=== PATIENT | female | born 1950 | race Caucasian/White ===

== ENCOUNTER 2018-06-01 01:01 | Outpatient (CLI) | payer OTHER, SELFPAY ==
--- NOTE | 2018-06-01 05:43 | DI.RAD_ITS ---
SYMPTOMS/DIAGNOSIS: CERVICALGIA, M54.2 CERVICAL SPINE: There is moderate narrowing of the C5-6 disc space and moderate endplate osteophytes. The remaining disc spaces are well maintained. There are facet degenerative changes at the lower levels. There is bilateral neural foraminal narrowing at C5-6 and mild neural foraminal narrowing at C6-7, greater on the left. IMPRESSION: Degenerative changes causing bilateral neural foraminal narrowing at C5-6 and C6-7.
--- NOTE | 2018-06-01 07:02 | DI.US_ITS ---
SYMPTOMS/DIAGNOSIS: CERVICALGIA, ANTERIOR NECK PAIN, M54.2 CAROTID ULTRASOUND: Comparison is made with September,. Mild calcific plaque is seen in both common carotid bulbs extending into the proximal internal carotid arteries, increasing when compared with the previous exam. There is no significant stenosis, greater than 50%. The external carotid arteries show elevated systolic velocity, left greater than right. The left vertebral artery shows flow reversal. IMPRESSION: No significant internal carotid artery stenosis. Bilateral external carotid artery stenosis is demonstrated. Flow reversal is now seen in the left vertebral artery.
== END 2018-06-01 01:21 ==
PROVIDERS: PCP Family Medicine; Visit Provider Family Medicine
DX: M54.2 Cervicalgia (principal); M48.02 Spinal stenosis, cervical region; I65.23 Occlusion and stenosis of bilateral carotid arteries; M47.022 Vertebral artery compression syndromes, cervical region
CPT/HCPCS: 72050; 93880

== ENCOUNTER 2019-01-03 07:10 | Outpatient (CLI) | payer OTHER, SELFPAY ==
[2019-01-03 08:53] LABS: ALT 49 U/L (12-78); AST 12 U/L (15-37); Albumin 3.8 g/dL (3.4-5.0); Alkaline Phosphatase 82 U/L (46-116); Anion Gap 9.7 mmol/L (3-11); BUN 17 mg/dL (7-18); Bilirubin, Total 0.5 mg/dL (0.2-1.0); CO2 27.3 mmol/L (21.0-32.0); CREATININE 0.73 mg/dL (0.55-1.02); Calcium 9.2 mg/dL (8.5-10.1); Calculated LDL 83 mg/dL; Chloride 106 mmol/L (98-107); Cholesterol 163 mg/dL (50-200); Glucose 100 mg/dL (70-100); HDL Cholesterol 70 mg/dL (40-60); Potassium 4.6 mmol/L (3.5-5.1); Sodium 143 mmol/L (136-145); Total Protein 6.8 g/dL (6.4-8.2); Triglyceride 53 mg/dL (30-150)
== END 2019-01-03 07:30 ==
PROVIDERS: PCP Family Medicine; Visit Provider Family Medicine
DX: E78.5 Hyperlipidemia, unspecified (principal); I10 Essential (primary) hypertension
CPT/HCPCS: 36415; 80053; 80061; 83721

== ENCOUNTER 2019-01-07 15:00 | Emergency (ER) | payer OTHER, SELFPAY ==
[2019-01-07 15:09] VITALS: BP 171/59; PULSE 95; RESP 18; TEMP 37.2; O2SAT 94
--- NOTE | 2019-01-07 15:22 | W.ED.GENAD ---
Discharge Plan Disposition Patient Disposition: HOME Condition: Stable Discharge Details Chief Complaint: GenMedical Clinical Impression: Cough Primary Care Provider: Eliana Urias ED Provider: Dary Jose Home Meds and New Rx's Prescriptions: New doxycycline hyclate 100 mg tablet 100 mg PO BID 7 Days Qty: 14 RF: 0 benzonatate [Tessalon Perles] 100 mg capsule 100 mg PO BID PRN (Reason: cough) Qty: 14 RF: 0 Continued lisinopril 20 mg tablet 20 mg PO DAILY Qty: 90 RF: 4 ascorbic acid (vitamin C) [Vitamin C] 500 MG tablet 500 mg PO DAILY RF: 0 aspirin [Aspir-81] 81 MG tablet,delayed release (DR/EC) 81 mg PO DAILY Qty: 30 RF: 6 atorvastatin 40 mg tablet 40 mg PO DAILY Qty: 90 RF: 4 Shingrix Adjuvant Component-PF suspension 1 ml IM ONCE Qty: 0.5 RF: 1 Discharge Instructions Instructions: Acute Cough (ED) Additional Instructions: Drink plenty of fluids and get plenty of rest. Use the albuterol inhaler as needed and directed for any shortness of breath or wheezing. Use [id number] Mucinex to help with chest congestion and mucus. Take the Tessalon Perles as needed and directed for cough. If you have no relief in symptoms over the next 2 days, you may start the antibiotics. Follow-up with your primary care doctor in 1 week for reevaluation. Return immediately to the emergency department if you develop any worsening or new concerning symptoms. Discharge Data Discharge Date/Time-TO BE ENTERED AT DEPARTURE: 01/07/19 16:11 Discharge Physician: Dary Jose Medical Decision Making 68-year-old female with a history of exercise-induced asthma, hypertension, hyperlipidemia who presents with productive cough for the past week. Admits to occasional shortness of breath but denies any at present. Denies any fever or chest pain. Afebrile. Oxygen saturation 94% on room air. Denies any recent travel, recent surgery, leg pain or swelling. Patient offered chest x-ray but declines. Lungs clear to auscultation. She appears nontoxic. Speaking in full sentences. Differential diagnosis includes bronchitis, viral URI, pneumonia. Admits to mainly c/o cough and denies any complaint of chest pain or shortness of breath at this time and history/presentation not c/w ACS. No DVT/PE risk factors and history/presentation not c/w PE. Do not see an indication for steroids. A chest xray was ordered but pt declined this. We will send with a prescription for albuterol inhaler, Tessalon Perles. She is instructed to take Mucinex [id number]. She states she is traveling to [place] for the week and mainly concerned about worsening cough and needing antibiotics. She is instructed to drink plenty of fluids and get plenty of rest. If she has no relief or worsening of symptoms in the next 2 days, she may start the antibiotics. She is instructed to follow-up with her primary care doctor for reevaluation and to return here if worse. HPI General Mode of arrival: ambulatory. Date/Time Provider Initiated Documentation: 01/07/19 15:15. Limitations to Documentation: no limitations. Information obtained by: patient. HPI Narrative: Patient is a 68-year-old female who presents with a complaint of cough with intermittent green mucus for the past week. She states her cough is mainly dry but occasionally productive of thick green sputum. She admits to intermittent shortness of breath but denies any at present. She has been taking [id number] Tylenol cold and flu as well as [facility] without relief. Patient denies any known fever or chills. She denies any sore throat, ear pain or chest pain. She denies any recent antibiotics. She states she is traveling to [place] this week and is nervous about worsening symptoms in case she needs antibiotics. She denies any leg pain or swelling, recent travel or recent surgery. Related Data Home Medications Medication Instructions Recorded Confirmed ascorbic acid (vitamin C) [Vitamin 500 mg PO DAILY 02/27/14 12/12/18 C] aspirin [Aspir-81] 81 mg PO DAILY #30 tab-cap 07/03/16 12/12/18 atorvastatin 40 mg tablet 40 mg PO DAILY #90 tab-cap 07/13/18 12/12/18 lisinopril 20 mg tablet 20 mg PO DAILY #90 tab 07/25/18 12/12/18 adjuvant AS01B (PF), component 1 ml IM ONCE #0.5 ml 12/31/18 vial 1 of 2 intramuscular suspension benzonatate [Tessalon Perles] 100 mg PO BID PRN #14 cap 01/07/19 doxycycline hyclate 100 mg PO BID 7 Days #14 tab 01/07/19 Previous Rx's Medication Instructions Recorded atorvastatin 40 mg tablet 40 mg PO DAILY #90 tab-cap 07/13/18 lisinopril 20 mg tablet 20 mg PO DAILY #90 tab 07/25/18 adjuvant AS01B (PF), component 1 ml IM ONCE #0.5 ml 12/31/18 vial 1 of 2 intramuscular suspension benzonatate [Tessalon Perles] 100 mg PO BID PRN #14 cap 01/07/19 doxycycline hyclate 100 mg PO BID 7 Days #14 tab 01/07/19 Allergies Allergy/AdvReac Type Severity Reaction Status Date / Time hydrocodone Allergy Unknown RASH Unverified 12/12/18 09:01 General Stated Complaint: GenMedical DEANNA: 3 Review of Systems Review of Systems All systems reviewed & are unremarkable except as noted in HPI and below Constitutional Reports as per HPI, Denies chills and Denies fever(s) Eyes Denies blurry vision ENT Denies dizziness, Denies sore throat and Denies throat swelling Cardiovascular Denies chest pain and Denies dyspnea Respiratory Reports cough and Denies dyspnea Gastrointestinal Denies abdominal pain, Denies diarrhea and Denies vomiting Genitourinary Denies hematuria and Denies dysuria Musculoskeletal Denies back pain and Denies numbness Integumentary/Breasts Denies lesions and Denies rash Neurologic Denies dizziness, Denies focal weakness and Denies numbness Allergic/Immunologic Denies throat swelling [facility] Medical History Breast lump (Resolved) Exercise-induced asthma (Chronic) Fracture of head of radius (Resolved 09/29/14) Fracture of metatarsal bone (Resolved) Low back pain (Chronic 01/13/16) Recurrent falls (Resolved 04/14/16) Subclavian steal syndrome (Chronic) Coronary arteriosclerosis (Chronic 11/16/13) Essential hypertension (Chronic) Hearing problem (Chronic) Hyperlipidemia (Chronic 09/11/08) Mitral valve regurgitation (Chronic 01/13/10) Non-alcoholic fatty liver disease (Chronic) Osteopenia (Chronic 06/03/04) Palpitations (Chronic 12/19/13) Sensorineural hearing loss, bilateral (Chronic 05/14/14) External carotid artery stenosis (Resolved ~06/03/18) Breast lump Coronary arteriosclerosis Essential hypertension Hyperlipidemia Mitral valve regurgitation Non-alcoholic fatty liver disease Osteopenia Palpitations Sensorineural deafness Surgical History History of section (Resolved) History of unilateral oophorectomy (Resolved) Status post cholecystectomy (Resolved) Status post laparoscopic hysterectomy (Resolved) section Cholecystectomy (~2000) Hysterectomy, Laproscopic (~2006) Oophrectomy, unilateral (~1994) Stent placement endometrial biopsy (~2003) Family History Mother Diabetes Essential hypertension Personal history of malignant neoplasm Heart disease Hyperlipidemia Stroke Father Alcohol abuse Chronic obstructive lung disease Sister Diabetes Essential hypertension Personal history of malignant neoplasm Hyperlipidemia Chronic obstructive lung disease Sister Essential hypertension Personal history of malignant neoplasm Asthma Brother Heart disease Daughter Personal history of malignant neoplasm Brother Hyperlipidemia Asthma Sister Asthma Son No problems noted. Social History Smoking/Tobacco Use Status: Former Tobacco Use Tobacco: How many years used: 17 Alcohol Intake: never Drug use: Never Substance use type: does not use Do you feel safe in your relationship?: Yes Exam Const General: cooperative and healthy appearing Orientation: alert and awake HENMT Head: normal to inspection Ears: hearing grossly normal bilaterally, external ears normal and TM's normal bilaterally General nose exam: external nose normal Face and sinus: normal facial exam Mouth: oral mucosae normal Teeth and gingiva: dentition normal Throat: posterior oropharynx normal Eyes General: appearance normal, both eyes and all related structures Eyelids: eyelids normal Pupils: PERRL EOM: EOM intact bilaterally Neck Neck: normal visual inspection Lymphatic: no lymphadenopathy noted Chest Chest: normal inspection of the chest Resp Effort & Inspection: normal respiratory effort and able to speak in complete sentences Auscultation: clear to auscultation bilaterally Cardio Rate: regular rate Rhythm: regular rhythm GI Inspection: normal to inspection Palpation: soft, not firm, no guarding, no hepatosplenomegaly, no masses and nontender Auscultation: normal bowel sounds Back/Spine/Pelvis Back: no CVA tenderness Skin General skin exam: no rashes or lesions noted Neuro General: alert and awake Cognition: normal cognition Speech: speech normal Gait: normal gait Motor: muscle tone normal throughout Sensory Exam: no sensory deficits noted Extrem General: normal to inspection, full ROM and normal capillary refill Psych Appearance: grossly normal Mental Status: mental status grossly normal Speech and Movement: speech and movement normal Affect: normal affect Thought Process: normal Course Vital Signs Temperature 98.9 F 01/07/19 15:09 Pulse 95 H 01/07/19 15:09 Respiratory Rate 18 01/07/19 15:09 Blood Pressure 171/59 H 01/07/19 15:09 Pulse Oximetry 94 L 01/07/19 15:09 Temperature 98.9 F 01/07/19 15:09 Temperature Source Skin 01/07/19 15:09 Pulse 95 H 01/07/19 15:09 Respiratory Rate 18 01/07/19 15:09 Respiratory Effort Non-Labored 01/07/19 15:12 Blood Pressure 171/59 H 01/07/19 15:09 Blood Pressure Position Supine 01/07/19 15:09 Pulse Oximetry 94 L 01/07/19 15:09 Oxygen Delivery Method Room Air 01/07/19 15:09 Oxygen Flow Rate 0 01/07/19 15:09
[2019-01-07] MEDS: Albuterol HFA 8 GM 60 PUFF INH IH (16:09)
[2019-01-07 16:10] VITALS: BP 151/91; PULSE 65; RESP 16; O2SAT 100
== END 2019-01-07 16:11 | disposition home or self-care (01) ==
PROVIDERS: Emergency Provider Physician Assistant; PCP Family Medicine
DX: R05 Cough (principal); J45.909 Unspecified asthma, uncomplicated; I10 Essential (primary) hypertension; Z53.29 Procedure and treatment not carried out because of patient's decision for other reasons
CPT/HCPCS: 99283

== ENCOUNTER 2019-01-17 00:59 | Outpatient (CLI) | payer OTHER, SELFPAY ==
--- NOTE | 2019-01-17 12:00 | DI.MAMMO_ITS ---
SYMPTOM/DIAGNOSIS: SCREENING, Z12.31 MAMMOGRAMS: Mammograms were interpreted according to the usual protocol including computer analysis with CAD system, tomosynthesis and C view imaging. Comparison with prior examinations. Breast density C. No suspicious masses or microcalcifications are seen. There is no definite evidence of malignancy. IMPRESSION: Negative mammogram. Routine screening is recommended. Category I. MQSA ASSESSMENT OF FINDINGS: Negative. Category 1. Patient will receive a letter notifying them of these results. Bi-RADS category C. The breasts are heterogeneously dense, which may obscure small masses.
== END 2019-01-17 01:19 ==
PROVIDERS: PCP Family Medicine; Visit Provider Family Medicine
DX: Z12.31 Encounter for screening mammogram for malignant neoplasm of breast (principal)
CPT/HCPCS: 77063; 77067

== ENCOUNTER 2019-03-03 00:22 | Outpatient (CLI) | payer OTHER, SELFPAY ==
--- NOTE | 2019-03-03 14:05 | MERGE_ITS ---
*[facility]* *[facility]* [address] [place] [address] Date of study: 03/03/2019 Transthoracic Echocardiography M-mode, complete 2D, complete spectral Doppler, and color Doppler *STUDY CONCLUSIONS* Summary: 1. Left ventricle: The cavity size was normal. Wall thickness was normal. Systolic function was normal. The estimated ejection fraction was 60-65%. Wall motion was normal; there were no regional wall motion abnormalities. 2. Right ventricle: The cavity size was normal. Systolic function was normal. 3. Aortic valve: Trileaflet; mildly thickened leaflets. There was mild regurgitation. 4. Inferior vena cava: The vessel was patent and normal in size. The respirophasic diameter changes were in the normal range (greater than or equal to 50%), consistent with normal central venous pressure. *PATIENT PRESENTATION* Height: 160cm (63in ) S/D Pressure: 161 / 72 Weight: 61.2kg (134.7lb ) BSA: 1.66m^2 Test start time: 02:15 AM. Test stop time: 03:00 PM. 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 This study was interpreted by [facility]. Pertinent images and digital data are archived for permanent storage and are available for subsequent review. No prior study was available for comparison. Study status: Routine. Transthoracic echocardiography. M-mode, complete 2D, complete spectral Doppler, and color Doppler. A Transthoracic Echocardiogram was performed. Scanning was performed from the parasternal, apical, subcostal, and suprasternal notch acoustic windows. Images were obtained using an [id number] cardiac ultrasound machine. Image quality was adequate. Study completion: The patient tolerated the procedure well. There were no complications. History: PMH: CAD i25.01. *CARDIAC ANATOMY* Left ventricle: The cavity size was normal. Wall thickness was normal. Systolic function was normal. The estimated ejection fraction was 60-65%. Wall motion was normal; there were no regional wall motion abnormalities. Aortic valve: Trileaflet; mildly thickened leaflets. Mobility was not restricted. Doppler: Transvalvular velocity was within the normal range. There was no stenosis. There was mild regurgitation. VTI ratio of LVOT to aortic valve: 0.67. Valve area (VTI): 2cm^2. Indexed valve area (VTI): 1.2cm^2/m^2. Peak velocity ratio of LVOT to aortic valve: 0.7. Valve area (Vmax): 2.1cm^2. Indexed valve area (Vmax): 1.2cm^2/m^2. Mean velocity ratio of LVOT to aortic valve: 0.67. Valve area (Vmean): 2cm^2. Indexed valve area (Vmean): 1.2cm^2/m^2. Mean gradient (S): 3.2mm Hg. Peak gradient (S): 5.2mm Hg. Aorta: Aortic root: The aortic root was normal in size. Ascending aorta: The ascending aorta was normal in size. Mitral valve: Mildly calcified annulus. Mobility was not restricted. Doppler: Transvalvular velocity was within the normal range. There was no evidence for stenosis. There was trivial regurgitation. Valve area by pressure half-time: 3.9cm^2. Indexed valve area by pressure half-time: 2.3cm^2/m^2. Peak gradient (D): 2.6mm Hg. Left atrium: The atrium was normal in size. Right ventricle: The cavity size was normal. Systolic function was normal. Pulmonic valve: The pulmonary valve appears to be grossly normal. Doppler: Transvalvular velocity was within the normal range. There was no evidence for stenosis. There was trivial regurgitation. Tricuspid valve: Structurally normal valve. Doppler: Transvalvular velocity was within the normal range. There was no evidence for stenosis. There was trivial regurgitation. Pulmonary artery: Poorly visualized. Pulmonary systolic pressure was within the normal range, in the range of 20mm Hg to 25mm Hg. Right atrium: The atrium was normal in size. Pericardium: There was no pericardial effusion. Systemic veins: Inferior vena cava: Well visualized. The vessel was patent and normal in size. The respirophasic diameter changes were in the normal range (greater than or equal to 50%), consistent with normal central venous pressure. Baseline ECG: Normal sinus rhythm. Measurements Left ventricle Value Reference LV ID, ED, PLAX 3.5 cm 3.5 - 6.0 LV ID, ES, PLAX 2.2 cm 2.1 - 4.0 LV PW thickness, ED, PLAX 0.8 cm LV end-diastolic volume, 1-p A2C 36 ml LV ejection fraction, 1-p A2C 60 % LV end-diastolic volume, 1-p A4C 71 ml LV ejection fraction, 1-p A4C 66 % LV e', lateral 0.093 m/sec LV E/e', lateral 9 LV e', medial 0.069 m/sec LV E/e', medial 12 LV e', average 0.081 m/sec LV E/e', average 10 Ventricular septum Value Reference IVS thickness, ED, PLAX 0.9 cm LVOT Value Reference LVOT ID, A-P 1.9 cm LVOT area 2.9 cm^2 LVOT peak velocity, S 0.8 m/sec LVOT mean velocity, S 0.58 m/sec LVOT VTI, S 17.4 cm LVOT peak gradient, S 2.5 mm Hg LVOT mean gradient, S 1.5 mm Hg Stroke volume (SV), LVOT DP 51 ml Stroke index (SV/bsa), LVOT DP 31 ml/m^2 Aortic valve Value Reference Aortic valve peak velocity, S 1.1 m/sec Aortic valve mean velocity, S 0.9 m/sec Aortic valve VTI, S 26.0 cm Aortic mean gradient, S 3.2 mm Hg Aortic peak gradient, S 5.2 mm Hg VTI ratio, LVOT/AV 0.67 Aortic valve area, VTI 2 cm^2 Velocity ratio, peak, LVOT/AV 0.7 Aortic valve area, peak velocity 2.1 cm^2 Velocity ratio, mean, LVOT/AV 0.67 Aortic valve area, mean velocity 2 cm^2 Aortic valve area/bsa, mean velocity 1.2 cm^2/m^2 Aorta Value Reference Aortic root ID, ED 2.8 cm Ascending aorta ID, A-P, S 3.3 cm Left atrium Value Reference LA ID, A-P, ES 2.6 cm LA ID/bsa, A-P 1.5 cm/m^2 <=2.2 LA volume/bsa, ES, 1-p A4C 28 ml/m^2 LA volume, ES, 2-p 28 ml LA volume/bsa, ES, 2-p 17 ml/m^2 LA/aortic root ratio 0.92 Mitral valve Value Reference Mitral E-wave peak velocity 0.8 m/sec Mitral A-wave peak velocity 0.83 m/sec Mitral deceleration time 197 ms 150 - 230 Mitral pressure half-time 57 ms Mitral peak gradient, D 2.6 mm Hg Mitral E/A ratio, peak 0.97 Mitral valve area, PHT, DP 3.9 cm^2 Tricuspid valve Value Reference Tricuspid regurg peak velocity 2.2 m/sec Tricuspid peak RV-RA gradient 19.9 mm Hg Right atrium Value Reference RA area, ES, A4C 15.2 cm^2 8.3 - 19.5 Legend: (L) and (H) jennifer values outside specified reference range. I have personally reviewed the images and have reviewed and edited the reported findings. Electronically signed by Shaniqua Abreu 03/03/2019 15:26
== END 2019-03-03 00:42 ==
PROVIDERS: PCP Family Medicine; Visit Provider Internal Medicine Cardiovascular Disease
DX: I25.10 Atherosclerotic heart disease of native coronary artery without angina pectoris (principal); I35.1 Nonrheumatic aortic (valve) insufficiency
CPT/HCPCS: 93306

== ENCOUNTER 2019-03-13 14:14 | Outpatient (CLI) | payer OTHER, SELFPAY ==
--- NOTE | 2019-03-13 14:15 | DI.RAD_ITS ---
SYMPTOMS/DIAGNOSIS: CERVICALGIA, M54.2, NECK PAIN CERVICAL SPINE: Six views were obtained. Note is made of disc space narrowing at C5-6 and C6-7, which is mild. There is prominent endplate hypertrophy at C5-6. There is narrowing of the neural foramen on the left at C5-6 and perhaps mild narrowing at C6-7 on the left. On the right, there is mild narrowing of neural foramen at C5-6. No gross erosive or destructive lesion is seen. No fracture identified. CONCLUSION: Degenerative changes, which are most marked at C5-6 with possible bilateral neural foraminal narrowing bilaterally at this level, as well as significant endplate prominence posteriorly; central canal spinal stenosis not excluded. Additional evaluation with MR may be considered if clinically appropriate.
== END 2019-03-13 14:34 ==
PROVIDERS: PCP Family Medicine; Visit Provider Family Medicine
DX: M54.2 Cervicalgia (principal); M50.322 Other cervical disc degeneration at C5-C6 level
CPT/HCPCS: 72050

== ENCOUNTER 2019-03-20 10:24 | Outpatient (CLI) | payer OTHER, SELFPAY | END 2019-03-20 10:44 | PROVIDERS: PCP Family Medicine; Visit Provider Family Medicine | DX: I49.9 Cardiac arrhythmia, unspecified (principal); I49.1 Atrial premature depolarization | CPT/HCPCS: 93225 ==

== ENCOUNTER 2019-03-22 11:01 | Outpatient (CLI) | payer OTHER, SELFPAY ==
--- NOTE | 2019-03-22 12:56 | HOLTER_ITS ---
HOLTER MONITOR DATE OF DICTATION March 22, 2019 STUDY INDICATION Arrhythmias. REQUESTING PROVIDER Not available. FINDINGS The patient was monitored for 2 days. Baseline sinus rhythm. Average heart rate 74 beats per minute, range 53 to 126 beats per minute. Rare ectopy. 0.2% PVCs. No VT. Less than 0.1% PACs. No SVT. No pauses greater than 3 seconds. No higher degree heart block. 4 patient events. None of these events correlated with arrhythmias. FINAL INTERPRETATION Rare ectopy. Reported symptoms do not correlate with arrhythmias. Heron Reynolds M.D. TE/lilly T - 03/22/2019 CC: Eliana Urias M.D.
== END 2019-03-22 11:21 ==
PROVIDERS: PCP Family Medicine; Visit Provider Family Medicine
DX: I49.9 Cardiac arrhythmia, unspecified (principal); I49.1 Atrial premature depolarization
CPT/HCPCS: 93226

== ENCOUNTER 2019-04-11 00:37 | Outpatient (CLI) | payer OTHER, SELFPAY ==
--- NOTE | 2019-04-11 07:15 | DI.NM_ITS ---
APPROVED REPORT Exam: Exercise Treadmill Patient Location: Out-Patient Room/Bed: Stress Nurse: Abigail Nowak RN Indications: Chest Pain, CAD s/p PCI Medical History Medical History: CAD s/p stent, HTN, Hyperlipidemia, Smoking(former) Asthma Medications: Amlodipine, Losartan, Aspirin, Atorvastatin Allergies: Hydrocodone Cardiac Risk Factors: HTN, Hyperlipidemia, FHX of CAD, Smoking Previous Cardiac Procedures: PCI Pretest Chest Pain Characteristics: Nonanginal chest pain Exercise History: Physically active Stress Test Details Nuclear Acquisition: Rest Tc-99m/Stress Tc-99m 1 day Rest Isotope: Tc-99m Sestamibi. Dose: 10.6 Date: 04/11/2019 Injection Time: 0845 Stress Isotope: Tc-99m Sestamibi. Dose: 32.3 Date: 04/11/2019 Injection Time: 1015 HR Resting HR: 62 bpm Max Heart Rate (APMHR): 152 bpm Max HR Achieved: 141 bpm Target HR (85% APMHR): 129 bpm % of APMHR: 92 Recovery HR: 78 bpm HR response to stress: Normal HR response to stress BP Resting BP: 146/74 mmHg Max BP: 180/60 mmHg Recovery BP: 138/60 mmHg BP response to stress: Normal blood pressure response to stress. ECG Resting ECG: Sinus Rhythm, NSSTT changes Stress ECG: Sinus Tachycardia ST Change: Upsloping ST depression Arrhythmia: None Recovery ECG: Sinus Rhythm Recovery ST Change: Horizontal ST depression Recovery Arrhythmia: None Clinical Reason for Termination: Maximal effort Stress Symptoms: General Fatigue Exercise duration: 9 min Highest Stage Achieved: Stage 3: 3.4 mph at 14% grade. Exercise capacity: 10.16 METs Overall Exercise Capacity for Age: Excellent Stress ECG Conclusion 1. The patient demonstrated excellent exercise tolerance. 2. This represents a maximal stress. 3. The patient had no symptoms suggestive of ischemia. 4. There is no evidence of ischemia on ECG. 5. The Persaud Score ( 8) estimates an annual cardiovascular mortality of 0% and a five year survival of 95% Using the Persaud Score there is a low probability of any angiographic coronary disease. Test Summary supine 62 146/74 standing 84 146/62 1 3 10 1.7 95 4.6 152/60 98 2 3 12 2.5 110 7 168/82 98 3 3 14 3.4 133 10.16 178/80 98 recovery 1 min. 119 180/60 recovery 3 min 90 158/54 recovery 6 min 78 138/60 MPI Conclusion There is no evidence of ischemia on the imaging portion of this exam. This represents a normal exercise nuclear stress test.
== END 2019-04-11 00:57 ==
PROVIDERS: PCP Family Medicine; Visit Provider Family Medicine
DX: I25.10 Atherosclerotic heart disease of native coronary artery without angina pectoris (principal); R07.9 Chest pain, unspecified; Z95.5 Presence of coronary angioplasty implant and graft; I10 Essential (primary) hypertension; E78.5 Hyperlipidemia, unspecified; J45.909 Unspecified asthma, uncomplicated
CPT/HCPCS: 78452; 93017

== ENCOUNTER 2019-12-05 05:06 | Outpatient (CLI) | payer OTHER, SELFPAY ==
[2019-12-05 08:30] LABS: ALT 38 U/L (14-59); AST 10 U/L (15-37); Albumin 4.1 g/dL (3.4-5.0); Alkaline Phosphatase 69 U/L (46-116); Anion Gap 5.9 mmol/L (3-11); BUN 19 mg/dL (7-18); Bilirubin, Total 0.6 mg/dL (0.2-1.0); CO2 30.1 mmol/L (21.0-32.0); CREATININE 0.79 mg/dL (0.55-1.02); Calcium 9.6 mg/dL (8.5-10.1); Calculated LDL 100 mg/dL (<100); Chloride 102 mmol/L (98-107); Cholesterol 201 mg/dL (<200); Glucose 104 mg/dL (74-106); HDL Cholesterol 87 mg/dL (40-60); Sodium 138 mmol/L (136-145); Total Protein 7.1 g/dL (6.4-8.2); Triglyceride 70 mg/dL (<150)
== END 2019-12-05 05:26 ==
PROVIDERS: PCP Family Medicine; Visit Provider Family Medicine
DX: E78.5 Hyperlipidemia, unspecified (principal); I10 Essential (primary) hypertension
CPT/HCPCS: 36415; 80053; 80061

== ENCOUNTER 2020-01-22 01:40 | Outpatient (CLI) | payer OTHER, SELFPAY ==
--- NOTE | 2020-01-22 10:30 | DI.MAMMO_ITS ---
EXAM: MG MAMMO SCREENING CLINICAL HISTORY: screening Z12.39 TECHNIQUE: Bilateral full field digital CC and MLO mammographic images were obtained with 3D tomosyn thesis and utilizing computer aided detection (CAD). COMPARISON: Available for comparison. FINDINGS: Masses/Architectural Distortion: None seen. Microcalcifications: No suspicious pleomorphic-type are seen. Skin Thickening/Nipple Retraction: None. IMPRESSION: 1. No significant interval change with no specific features of malignancy noted. 2. Unless there is more urgent need, screening mammography is recommended, as per [employer] guidelines. BI-RADS Category 1 - Negative Breast Density - Category C - Heterogeneously dense The mammogram demonstrates the patient's breast tissue is dense. Dense breast tissue is very common a nd is not abnormal but dense breast tissue can make it harder to find cancer on a mammogram. Also, de nse breast tissue may increase their breast cancer risk. This information about the result of the [facility] mogram report was provided to the patient to raise their awareness. Use this report when you speak wi th the patient about their risks for breast cancer, which includes their family history. At that time , you may recommend for more screening tests (Ultrasound or MRI) as they might be useful based on the ir risk. A negative radiographic report should not delay biopsy if a dominant or clinically suspicious mass is present. Up to ten percent of cancers are not identified on mammography. A negative report may reinforce clinical impression. Adenosis and dense breasts may obscure an underlying neoplasm. False positive reports average 6 to 10%. Patient will receive a letter notifying them of these results.
== END 2020-01-22 02:00 ==
PROVIDERS: PCP Family Medicine; Visit Provider Family Medicine
DX: Z12.31 Encounter for screening mammogram for malignant neoplasm of breast (principal)
CPT/HCPCS: 77063; 77067

== ENCOUNTER 2020-08-06 11:02 | Outpatient (CLI) | payer MEDICARE, SELFPAY ==
[2020-08-07 12:44] LABS: COVID-19 RT-PCR UVMMC Result Negative (Negative)
== END 2020-08-06 11:03 | disposition home or self-care (01) ==
LOC: LBO 11:03
PROVIDERS: PCP Family Medicine; Visit Provider Family Medicine
DX: Z20.822 Contact with and (suspected) exposure to COVID-19 (principal)
CPT/HCPCS: U0003; U0005

== ENCOUNTER 2020-08-09 01:56 | Outpatient (CLI) | payer MEDICARE, SELFPAY ==
[2020-08-10 11:29] LABS: COVID-19 RT-PCR UVMMC Result Negative (Negative)
== END 2020-08-09 01:57 | disposition home or self-care (01) ==
LOC: LBO 01:56
PROVIDERS: PCP Family Medicine; Visit Provider Family Medicine
DX: Z20.822 Contact with and (suspected) exposure to COVID-19 (principal)
CPT/HCPCS: U0003; U0005

== ENCOUNTER 2020-09-26 16:04 | Outpatient (REF) | payer MEDICARE, SELFPAY ==
[2020-09-26 20:30] LABS: ALT 41 U/L (14-59); AST 12 U/L (15-37); Albumin 4.1 g/dL (3.4-5.0); Alkaline Phosphatase 63 U/L (46-116); Anion Gap 9.1 mmol/L (3-11); BUN 18 mg/dL (7-18); Bilirubin, Total 0.4 mg/dL (0.2-1.0); CO2 26.9 mmol/L (21.0-32.0); CREATININE 0.7 mg/dL (0.55-1.02); Calcium 9.3 mg/dL (8.5-10.1); Calculated LDL 81 mg/dL (<100); Chloride 103 mmol/L (98-107); Cholesterol 184 mg/dL (<200); Glucose 94 mg/dL (74-106); HDL Cholesterol 91 mg/dL (40-60); Potassium 4.2 mmol/L (3.5-5.1); Sodium 139 mmol/L (136-145); Total Protein 7.1 g/dL (6.4-8.2); Triglyceride 60 mg/dL (<150)
== END 2020-09-26 16:05 | disposition home or self-care (01) ==
LOC: LBN 16:04
PROVIDERS: PCP Family Medicine; Visit Provider Family Medicine
DX: E78.2 Mixed hyperlipidemia (principal); I10 Essential (primary) hypertension; K76.0 Fatty (change of) liver, not elsewhere classified
CPT/HCPCS: 80053; 80061

== ENCOUNTER 2020-11-08 14:52 | Outpatient (CLI) | payer MEDICARE, SELFPAY ==
--- NOTE | 2020-11-08 09:45 | DI.RAD_ITS ---
Exam(s) XR HIP RT COMPLETE AP PELVIS EXAM: XR HIP RT COMPLETE AP PELVIS CLINICAL HISTORY: r hip pain after falling,M25.551. TECHNIQUE: 2D digital imaging was performed. COMPARISON: No exams were available for comparison FINDINGS: BONES: No acute fracture is present. No bony destructive lesion is seen. The sacrum and sacroiliac john ints are largely obscured by overlying bowel. JOINTS: No dislocation present. SOFT TISSUE: There are surgical clips in the right lower quadrant of the abdomen. IMPRESSION: No acute fracture or dislocation. DATA REPOSITORY: RADIATION DOSE DELIVERED:
== END 2020-11-08 15:12 ==
PROVIDERS: PCP Family Medicine; Visit Provider Family Medicine
DX: M25.551 Pain in right hip (principal)
CPT/HCPCS: 73502

== ENCOUNTER 2020-12-19 09:35 | Outpatient (RCR) | payer MEDICARE, SELFPAY ==
--- NOTE | 2020-12-19 10:00 | HOLTER_ITS ---
APPROVED REPORT Conclusion This is a 48-hour Holter monitor ordered for palpitations Rhythm throughout was sinus with an average heart rate of 72. Minimum was 50, maximum 119 There were very rare ventricular ectopic beats There were very rare atrial premature beats. There were a total of 3 self-limited atrial runs. The longest of these was 11 beats in duration There was no atrial fibrillation, no high-grade AV block, no pauses greater than 3 seconds No patient symptoms were reported
== END 2021-01-01 23:59 | disposition home or self-care (01) ==
LOC: RT 09:35
PROVIDERS: PCP Family Medicine; Visit Provider Family Medicine
DX: R00.0 Tachycardia, unspecified (principal); R42 Dizziness and giddiness; I49.1 Atrial premature depolarization
CPT/HCPCS: 93227; 93225; 93226

== ENCOUNTER 2021-01-22 01:49 | Outpatient (CLI) | payer MEDICARE, SELFPAY ==
--- NOTE | 2021-01-22 09:00 | DI.MAMMO_ITS ---
Exam(s) MAMMO SCREENING EXAM: MAMMO SCREENING CLINICAL HISTORY: screening,z12.39. TECHNIQUE: Bilateral full field digital CC and MLO mammographic images were obtained with 3D tomosyn thesis and utilizing computer aided detection (CAD). COMPARISON: Prior mammograms dating back to 2010, the most recent being January 2020.. Very significant family history. Her mother was diagnosed with breast cancer after age 50. Also 2 s isters with breast cancer. Her daughter was diagnosed with breast cancer at age 27. FINDINGS: The fibroglandular tissue pattern is again noted be moderately dense. There are no new spiculated masses nor new malignant appearing microcalcification groups in the right breast. Stable microcalcification groups in the left breast also again noted. In the left breast on 3D imaging there is a subtle suggestion and 8 by 7 millimeter nodule located ap proximately 4 cm in from the nipple. Spot compression view and ultrasound recommended. IMPRESSION: Moderately dense fibroglandular tissue. Subtle 8 millimeter possible nodule left breast. Spot compr ession MLO 3D view amended. Also ultrasound. No obvious new right breast findings. Given the density of this patient's fibroglandular tissue and severe family history I recommend that her breast ultrasound examination be a bilateral complete breast ultrasound examination BI-RADS Category 0 - Assessment Incomplete: Need additional imaging evaluation Breast Density - Category C - Heterogeneously dense Breast density Category C or D implies that the patient has dense breast tissue. Dense breast tissue can make it harder to find cancer on a mammogram. Dense breast tissue is also associated with an incr eased risk of breast cancer. This information about the result of the mammogram report was provided to the patient to raise their awareness. Use this report when you speak with the patient about their risks for breast cancer, which includes their family history. At that time, you may recommend additional screening tests (Ultrasoun d or MRI) as these tests may add significant information. A negative radiographic report should not delay biopsy if a dominant or clinically suspicious mass is present. Up to ten percent of cancers are not identified on mammography. A negative report may reinforce clinical impression. Adenosis and dense breasts may obscure an underlying neoplasm. False positive reports average 6 to 10%. Patient will receive a letter notifying them of these results.
== END 2021-01-22 02:09 ==
PROVIDERS: PCP Family Medicine; Visit Provider Family Medicine
DX: Z12.31 Encounter for screening mammogram for malignant neoplasm of breast (principal); R92.8 Other abnormal and inconclusive findings on diagnostic imaging of breast
CPT/HCPCS: 77063; 77067

== ENCOUNTER 2021-01-28 01:58 | Outpatient (CLI) | payer MEDICARE, SELFPAY ==
--- NOTE | 2021-01-28 | DI.US_ITS ---
Exam(s) MG MAMMO SCREEN CALL BACK UNI US BREAST LT COMPLETE US BREAST RT COMPLETE EXAM: MG MAMMO SCREEN CALL BACK UNI and bilateral complete breast ultrasound CLINICAL HISTORY: F/U MAMMO, POSSIBLE NODULE LT BREAST,DENSE FIBROGLANDULAR TISSUE. TECHNIQUE: Craniocaudal and mediolateral oblique Full Field Digital Mammography views of the left br east with Computer Aided Diagnosis followed by Tomosynthesis and bilateral breast ultrasound. COMPARISON: Priors available for comparison. FINDINGS: Mammography/Tomosynthesis: Masses/Architectural Distortion: None seen. Microcalcifictions: No suspicious pleomorphic-type are seen. Skin Thickening/Nipple Retraction: None. Bilateral breast US: Echotexture: Normal appearance of the glandular tissue. Shadowing: No suspicious foci. Cyst: There is a 3 mm simple cyst in the left breast at the 1 o'clock position 3 cm from the nipple. Solid lesions: None seen. Ductal dilation: None. IMPRESSION: 1. No evidence of malignancy is noted. 2. A six-month follow-up left mammogram is recommended for re-evaluation. 3. The findings were discussed with the patient on the date of the examination. BI-RADS Category 3 - 6 month - Probably Benign Finding: Recommend follow-up imaging in 6 months Breast Density - Category C - Heterogeneously dense Breast density Category C or D implies that the patient has dense breast tissue. Dense breast tissue can make it harder to find cancer on a mammogram. Dense breast tissue is also associated with an incr eased risk of breast cancer. This information about the result of the mammogram report was provided to the patient to raise their awareness. Use this report when you speak with the patient about their risks for breast cancer, which includes their family history. At that time, you may recommend additional screening tests (Ultrasoun d or MRI) as these tests may add significant information. A negative radiographic report should not delay biopsy if a dominant or clinically suspicious mass is present. Up to ten percent of cancers are not identified on mammography. A negative report may reinforce clinical impression. Adenosis and dense breasts may obscure an underlying neoplasm. False positive reports average 6 to 10%. Patient will receive a letter notifying them of these results.
== END 2021-01-28 02:18 ==
PROVIDERS: PCP Family Medicine; Visit Provider Family Medicine
DX: Z12.31 Encounter for screening mammogram for malignant neoplasm of breast (principal)
CPT/HCPCS: 76642; 77063; 77067

== ENCOUNTER → 2021-02-18 08:53 | Outpatient (BNVA) | payer MEDICARE, SELFPAY | PROVIDERS: PCP Family Medicine; Referring Provider Family Medicine; Visit Provider Internal Medicine Cardiovascular Disease | DX: I25.10 Atherosclerotic heart disease of native coronary artery without angina pectoris (principal); R00.0 Tachycardia, unspecified; I10 Essential (primary) hypertension; E78.5 Hyperlipidemia, unspecified; Z79.899 Other long term (current) drug therapy; Z87.891 Personal history of nicotine dependence | CPT/HCPCS: 99214 ==

== ENCOUNTER 2021-04-17 02:45 | Outpatient (CLI) | payer MEDICARE, SELFPAY ==
[2021-04-17 11:46] LABS: HCT 39.8 % (36.0-46.0); HGB 13.1 g/dL (11.2-15.7); MCH 30.3 pg (27.0-33.0); MCHC 32.9 % (32.0-36.0); MCV 91.9 fL (80-95); MPV 9.4 fL (8.0-11.0); Platelet Count 313 10^3/uL (130-400); RBC 4.33 10^6/uL (3.93-5.22); RDW 12.8 % (11.7-14.6); RDW-SD 43.3 fL; WBC 5.37 10^3/uL (4.4-10.8)
[2021-04-17 13:20] LABS: ALT 39 U/L (14-59); AST 11 U/L (15-37); Albumin 4.1 g/dL (3.4-5.0); Alkaline Phosphatase 77 U/L (46-116); BUN 13 mg/dL (7-18); Bilirubin, Total 0.5 mg/dL (0.2-1.0); CREATININE 0.7 mg/dL (0.55-1.02); Calcium 9.3 mg/dL (8.5-10.1); Calculated LDL 84 mg/dL (<100); Chloride 103 mmol/L (98-107); Cholesterol 184 mg/dL (<200); Glucose 90 mg/dL (74-106); HDL Cholesterol 82 mg/dL (40-60); Potassium 4.1 mmol/L (3.5-5.1); Sodium 140 mmol/L (136-145); Triglyceride 92 mg/dL (<150)
== END 2021-04-17 02:46 | disposition home or self-care (01) ==
LOC: LBO 02:45
PROVIDERS: PCP Family Medicine; Visit Provider Family Medicine
DX: I25.10 Atherosclerotic heart disease of native coronary artery without angina pectoris (principal); R42 Dizziness and giddiness
CPT/HCPCS: 36415; 80053; 80061; 85027; 84443

== ENCOUNTER 2021-04-19 15:46 | Observation (INO) | payer MEDICARE, SELFPAY ==
[2021-04-19] VITALS (30 sets, daily range): BP systolic 112–188; BP diastolic 47–82; PULSE 60–88; RESP 13–20; TEMP 35.9–36.9; O2SAT 94–100
--- NOTE | 2021-04-19 16:00 | RT.EKG_ITS ---
APPROVED REPORT Exam: Resting ECG Reason for Exam: dizziness Patient Location: E HR:65 bpm ECG Measurements Heart Rate 65 AXIS GA 172 P 73 QRSd 79 QRS 49 QT 376 T 48 QTc 392 Conclusion Sinus rhythm...normal P axis, V-rate 60- 99 Probable left atrial enlargement...P >50mS, <-0.10mV V1. Sinus. No STEMI. I have reviewed and interpreted ECG and agree with software generated interpretation.
--- NOTE | 2021-04-19 16:00 | DI.CT_ITS ---
Exam(s) CT BRAIN NECK CTA EXAM: CT BRAIN NECK CTA CLINICAL HISTORY: headache, blurry vision, dizziness. TECHNIQUE: Imaging Protocol: Axial CT angiography was performed with multi-slice acquisition and mu lti-planar and/or 3D reconstructions. CONTRAST MATERIAL: Intravenous: Omnipaque 350 Contrast volume:85 mL COMPARISON: No exams were available for comparison FINDINGS: CT Head W/O and W: Ventricles and Extra axial spaces: Normal in size and morphology for the patient's age. Hemorrhage: None. Cerebral parenchyma: No acute territorial infarct. Midline shift: None. Brainstem/Cerebellum: Normal. Calvarium: Normal. Visualized Paranasal sinuses/Mastoids: Clear. Soft Tissues: Unremarkable. Enhancement: Unremarkable. CTA Neck W: Common Carotid: Right: No dissection, occlusion or significant stenosis. Atherosclerosis. Left: No dissection, occlusion or significant stenosis. Atherosclerosis. External Carotid: Right: No occlusion or significant stenosis. Atherosclerosis at its origin. Left: No occlusion or significant stenosis. Internal Carotid: Right: Atherosclerosis proximally resulting in approximately 75 percent stenosis. No occlusion. Left: Atherosclerosis resulting in approximately 50 percent stenosis. No occlusion. Vertebral Artery: Right: No dissection, occlusion or significant stenosis. Atherosclerosis at its origin. Dominant ri ght vertebral artery. Left: No dissection, occlusion or significant stenosis. Differential degree of enhancement of the ve rtebral artery along its course. The patient has a history of subclavian steal and flow reversal in the left vertebral artery. (Ultrasound examination of 06/01/2018). Lung Apices: No acute abnormality. Bones: Degenerative changes in the cervical spine. Straightening of the normal cervical spine with m ild reversal at C5-C6. Soft Tissues: Normal. Thyroid gland: There is a 0.4 cm hypodense nodule in the left thyroid gland. No associated abnormal findings seen. No follow-up is recommended. CTA Brain W: Internal Carotid Arteries: Petrous: Normal. Cavernous: Atherosclerosis. No stenosis. Cerebral: Normal. Anterior Cerebral Arteries: Right: No aneurysm, occlusion or significant stenosis. Left: No aneurysm, occlusion or significant stenosis. Middle Cerebral Arteries: Right: No aneurysm, occlusion or significant stenosis. Left: No aneurysm, occlusion or significant stenosis. Posterior cerebral Arteries: Right: No aneurysm, occlusion or significant stenosis. Left: No aneurysm, occlusion or significant stenosis. Vertebral Arteries: Right: No aneurysm, occlusion or significant stenosis. Left: No aneurysm, occlusion or significant stenosis. Basilar Artery: No aneurysm, occlusion or significant stenosis. IMPRESSION: 1. No large vessel occlusion or significant stenosis on the CT angiography of the head. 2. No acute intracranial process. 3. 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 Patient has documented reversal flow in the left vertebral artery on the prior ultrasou nd from 06/01/2018. 4. Severe stenosis at the origin of the right internal carotid artery. 5. Moderate stenosis at the origin of the left internal carotid artery. RADIATION DOSE DELIVERED: 1,743.47mGy.cm Total DLP DATA REPOSITORY: All CT scans at this facility are submitted to the National Radiology Data Registry (NRDR) Dose Index Registry (DIR) with the [employer] ([employer]). RADIATION OPTIMIZATION: All CT scans at this facility use at least one of these dose optimization te chniques: automated exposure control; mA and/or kV adjustment per patient size (includes targeted exa ms where dose is matched to clinical indication); or iterative reconstruction.
--- NOTE | 2021-04-19 16:02 | ED.GENADUL_ITS ---
Discharge Plan Disposition Patient Disposition: [facility] INPATIENT Condition: Stable Discharge Details Clinical Impression: Blurred vision, Headache, History of arteriosclerotic cardiovascular disease Admit Date/Time: 04/19/21 18:48 Admit Provider: Jonas Magana Attending Provider: Jonas Magana Primary Care Provider: Eliana Urias ED Provider: Dary Jose Medical Decision Making 70-year-old female with a history of subclavian steal syndrome, hypertension, hyperlipidemia, stress-induced asthma, coronary artery disease with stent placement presents for intermittent dizziness, headache and blurry vision for the past few days. Corrected visual acuity 20/20 on arrival. Blood pressure hypertensive at 180/75. Recheck 163/55. Remainder vitals within normal limits. She has no focal deficits on exam and appears comfortable and nontoxic. Differential diagnosis includes acute CVA, vertigo, TIA, electrolyte abnormality, arrhythmia. Consider temporal arteritis. Will obtain screening labs including ESR, cardiac work-up, EKG, CTA head and neck and chest x-ray. EKG reviewed and notes a rate of 65, sinus, no STEMI and nondiagnostic. Labs and imaging reviewed. Labs unremarkable. CTA head notes: IMPRESSION: 1. No anterior large vessel occlusion is appreciated. Mild intracranial arteriosclerosis. 2. Findings consistent with dehiscence of the left jugular bulb protruding into the left middle ear. CTA neck notes: IMPRESSION: 1. Critical stenosis or complete occlusion of the proximal left subclavian artery, with concern for left subclavian steal phenomenon. Reversal of flow was also described on prior carotid ultrasound 06/01/2018. 2. Severe stenosis at the right internal carotid artery origin measuring 72% by NASCET criteria. 3. Borderline moderate stenosis at the left internal carotid artery origin measuring 49% by NASCET criteria. 4. Degenerative changes of the cervical spine, greatest at C5-C6. Imaging reviewed with [facility] neurology. Findings of subclavian steal phenomenon would suspect aphasia with right-sided weakness and neglect consistent with left hemisphere stroke however this is not evident and do not suspect patient's symptoms are consistent with CT findings. Considering her cardiovascular disease and comorbidities, should consider potential posterior circulation stroke/small vessel disease and recommends Plavix load with 600 mg Plavix p.o. now in addition to total of full dose aspirin now. Recommend starting 75 mg Plavix in addition to 81 mg aspirin tomorrow with plan for admission for MRI brain. Based on patient's symptoms, also consider individual ischemic events such as 3rd, 4th or 6th nerve palsies. Per recommendations with [facility] neurology, visual field testing and gaze testing were performed at bedside with no evidence of visual field defects or disconjugate gaze. If work-up negative, recommend follow-up with ophthalmology and [facility] neurology outpatient. Case discussed with hospitalist accepts patient for admission. Medical Records Medical records reviewed: Yes I reviewed the patient's medical records. Imaging Data Radiologic Study: Radiologist's impression: CT Angiography Head With Contrast, Arteriography Exam date and time: 04/19/2021 4:14 PM Age: 70 years old Clinical indication: Other: Headache, blurry vision, dizziness TECHNIQUE: Imaging protocol: Computed tomography angiography of the head with contrast. Exam focused on the arteries. 3D rendering (Not supervised by radiologist): MIP and/or 3D reconstructed images were created by the technologist. Contrast material: OMNIPAQUE 350; Contrast volume: 85 ml; Contrast route: INTRAVENOUS (IV); COMPARISON: CR XR cervical spine comp 4-5V 03/13/2019 2:38 PM FINDINGS: ANTERIOR CIRCULATION: Right internal carotid artery: Mild calcified plaque of the right internal carotid artery, without significant stenosis. No aneurysm formation. Right middle cerebral artery: Unremarkable. No occlusion or significant stenosis. No aneurysm. Right anterior cerebral artery: Unremarkable. No occlusion or significant stenosis. No aneurysm. Left internal carotid artery: Mild calcified plaque of the left internal carotid artery, without significant stenosis. No aneurysm formation. Left middle cerebral artery: Unremarkable. No occlusion or significant stenosis. No aneurysm. Left anterior cerebral artery: Unremarkable. No occlusion or significant stenosis. No aneurysm. POSTERIOR CIRCULATION: Right vertebral artery: Unremarkable. No occlusion or significant stenosis. No aneurysm. Left vertebral artery: Unremarkable. No occlusion or significant stenosis. No aneurysm. Basilar artery: Unremarkable. No occlusion or significant stenosis. No aneurysm. Right posterior cerebral artery: Unremarkable. No occlusion or significant stenosis. No aneurysm. Left posterior cerebral artery: Unremarkable. No occlusion or significant stenosis. No aneurysm. Veins: No venous sinus thrombosis is appreciated. Brain: No CT evidence of acute transcortical infarction. No acute intracranial hemorrhage, edema, midline shift, or mass effect. Cerebral ventricles: No ventriculomegaly. Bones/joints: Unremarkable. No acute fracture. Auditory system: Note is made of dehiscence at the left jugular bulb, protruding into the left middle ear. Soft tissues: Unremarkable. IMPRESSION: 1. No anterior large vessel occlusion is appreciated. Mild intracranial arteriosclerosis. 2. Findings consistent with dehiscence of the left jugular bulb protruding into the left middle ear. CT Angiography Neck With Contrast Exam date and time: 04/19/2021 4:14 PM Age: 70 years old Clinical indication: Other: Headache, blurry vision, dizziness TECHNIQUE: Imaging protocol: Computed tomography angiography of the neck with contrast. 3D rendering (Not supervised by radiologist): MIP and/or 3D reconstructed images were created by the technologist. Contrast material: OMNIPAQUE 350; Contrast volume: 85 ml; Contrast route: INTRAVENOUS (IV); COMPARISON: 1. [place] US carotid 06/01/2018 3:47:00 PM 2. CR XR cervical spine comp 4-5V 03/13/2019 2:38 PM FINDINGS: Right common carotid artery: [id number] atherosclerotic disease of the right common carotid artery, with mild vessel stenosis. Right internal carotid artery: Mixed calcified and atheromatous plaque at the right internal carotid artery origin. Stenosis is measured at 72% by NASCET criteria. Right external carotid artery: No occlusion or stenosis of the origin. Left common carotid artery: Mild atherosclerosis of the left common carotid artery, without significant stenosis. Left internal carotid artery: Predominantly calcified plaque at the left carotid bifurcation and internal carotid artery origin. Stenosis is measured at 49% by NASCET criteria. Left external carotid artery: No occlusion or stenosis of the origin. Right vertebral artery: The right vertebral artery origin is suboptimally evaluated secondary to adjacent dense intravascular contrast. The remainder of the cervical right vertebral artery is unremarkable in course and caliber. Left vertebral artery: Differential opacification of the left vertebral artery as compared to the right, concerning for subclavian steal phenomenon and retrograde flow through the vertebral artery. Left subclavian artery: Concern for critical stenosis or complete occlusion of the proximal left subclavian artery proximal to the vertebral artery origin. Aorta: Mild atherosclerosis at the aortic arch. Thyroid: Nodularity of the thyroid gland, with dominant left thyroid nodule measuring up to 0.8 cm. By ACR guidance, no further follow-up is recommended. Lymph nodes: There is possibly an element of mediastinal lymphadenopathy, incompletely evaluated. Soft tissues: Normal. No significant soft tissue swelling. Bones/joints: Diffuse degenerative changes of the cervical spine, with retrolisthesis and endplate osteophyte formation at C5 on C6. This results in moderate spinal canal stenosis and severe neural foraminal narrowing. Lungs: Patchy differential aeration of the visualized upper lung bowden, a nonspecific finding that may be related to phase of inspiration. Mild emphysema. IMPRESSION: 1. Critical stenosis or complete occlusion of the proximal left subclavian artery, with concern for left subclavian steal phenomenon. Reversal of flow was also described on prior carotid ultrasound 06/01/2018. 2. Severe stenosis at the right internal carotid artery origin measuring 72% by NASCET criteria. 3. Borderline moderate stenosis at the left internal carotid artery origin measuring 49% by NASCET criteria. 4. Degenerative changes of the cervical spine, greatest at C5-C6. Lab Data Lab results reviewed: Yes I reviewed the patient's lab results. Labs: Laboratory Tests Range/Units 04/19/21 04/19/21 04/19/21 16:15 16:15 16:15 WBC (4.4-10.8) 10^3/uL 6.15 RBC (3.93-5.22) 10^6/uL 4.71 Hgb (11.2-15.7) g/dL 14.0 Hct (36.0-46.0) % 42.2 MCV (80-95) fL 89.6 MCH (27.0-33.0) pg 29.7 MCHC (32.0-36.0) % 33.2 RDW (11.7-14.6) % 12.7 Plt Count (130-400) 10^3/uL 296 MPV (8.0-11.0) fL 9.6 Immature Gran % 0.2 Neutrophils % 53.5 Lymphocytes % 31.7 Monocytes % 9.6 Eosinophils % 4.2 Basophils % 0.8 Nucleated RBC % % 0 Absolute Neutrophils (1.2-6.7) 10^3/uL 3.29 Absolute Lymphocytes (1.2-3.4) 10^3/uL 1.95 Absolute Monocytes (0.1-0.8) 10^3/uL 0.59 Absolute Eosinophils (0.0-0.7) 10^3/uL 0.26 Absolute Basophils (0.0-0.2) 10^3/uL 0.05 ESR (0-30) mm/hr 21 Sodium (136-145) mmol/L 141 Potassium (3.5-5.1) mmol/L 3.6 Chloride (98-107) mmol/L 101 Carbon Dioxide (21.0-32.0) mmol/L 30.6 Anion Gap (3-11) mmol/L 9.4 BUN (7-18) mg/dL 13 Creatinine (0.55-1.02) mg/dL 0.8 Estimated GFR/1.73 m2 (mL/min/1.73m2) >= 60.00 Glucose (74-106) mg/dL 94 Calcium (8.5-10.1) mg/dL 9.6 Magnesium (1.8-2.4) mg/dL 2.3 Total Bilirubin (0.2-1.0) mg/dL 0.3 AST (15-37) U/L 15 ALT (14-59) U/L 52 Alkaline Phosphatase (46-116) U/L 83 Troponin I (<0.06) ng/mL < 0.05 Total Protein (6.4-8.2) g/dL 7.9 Albumin (3.4-5.0) g/dL 4.2 COVID-19 Source Range/Units 04/19/21 18:40 WBC (4.4-10.8) 10^3/uL RBC (3.93-5.22) 10^6/uL Hgb (11.2-15.7) g/dL Hct (36.0-46.0) % MCV (80-95) fL MCH (27.0-33.0) pg MCHC (32.0-36.0) % RDW (11.7-14.6) % Plt Count (130-400) 10^3/uL MPV (8.0-11.0) fL Immature Gran % Neutrophils % Lymphocytes % Monocytes % Eosinophils % Basophils % Nucleated RBC % % Absolute Neutrophils (1.2-6.7) 10^3/uL Absolute Lymphocytes (1.2-3.4) 10^3/uL Absolute Monocytes (0.1-0.8) 10^3/uL Absolute Eosinophils (0.0-0.7) 10^3/uL Absolute Basophils (0.0-0.2) 10^3/uL ESR (0-30) mm/hr Sodium (136-145) mmol/L Potassium (3.5-5.1) mmol/L Chloride (98-107) mmol/L Carbon Dioxide (21.0-32.0) mmol/L Anion Gap (3-11) mmol/L BUN (7-18) mg/dL Creatinine (0.55-1.02) mg/dL Estimated GFR/1.73 m2 (mL/min/1.73m2) Glucose (74-106) mg/dL Calcium (8.5-10.1) mg/dL Magnesium (1.8-2.4) mg/dL Total Bilirubin (0.2-1.0) mg/dL AST (15-37) U/L ALT (14-59) U/L Alkaline Phosphatase (46-116) U/L Troponin I (<0.06) ng/mL Total Protein (6.4-8.2) g/dL Albumin (3.4-5.0) g/dL COVID-19 Source Nasal/Nares ECG Data Attestation: I personally reviewed and interpreted this ECG (s) as follows: Interpretation: Rate of 65, sinus, no acute ST elevation or depression. [place] 172. QRS 79. QTc 392. HPI General Mode of arrival: ambulatory . Date/Time Provider Initiated Documentation: 04/19/21 15:47 . Limitations to Documentation: no limitations . Information obtained by: patient . HPI Narrative: Patient is a 7-year-old female with a history of hypertension, hyperlipidemia, coronary artery disease with coronary stent placement, subclavian steal syndrome presents for dizziness, headache and blurry vision for the past few days. She states her dizziness is most associated with when she feels she has blurry vision. She states she feels she is seeing 2 or 4 people when she is looking at one person. She states her headache is mainly frontal and denies any headache at present. She denies any spinning sensation or lightheadedness. She denies fever, neck pain, chest pain, shortness of breath, abdominal pain, unilateral numbness or weakness or slurred speech. Related Data Home Medications Medication Instructions Recorded Confirmed ascorbic acid (vitamin C) [Vitamin 500 mg PO DAILY 02/27/14 04/19/21 C] albuterol sulfate 90 mcg/actuation 2 puff INHALATION Q6H PRN #6.7 g 07/10/20 04/19/21 aerosol inhaler amlodipine 5 mg tablet 5 mg PO DAILY #90 tab 07/10/20 04/19/21 aspirin 81 mg tablet,delayed 81 mg PO DAILY #90 tab-cap 07/10/20 04/19/21 release atorvastatin 40 mg tablet 40 mg PO DAILY #90 tab 07/10/20 04/19/21 losartan 100 1 tab PO DAILY #90 tab 08/19/20 04/19/21 mg-hydrochlorothiazide 25 mg tablet Previous Rx's Medication Instructions Recorded albuterol sulfate 90 mcg/actuation 2 puff INHALATION Q6H PRN #6.7 g 07/10/20 aerosol inhaler amlodipine 5 mg tablet 5 mg PO DAILY #90 tab 07/10/20 aspirin 81 mg tablet,delayed 81 mg PO DAILY #90 tab-cap 07/10/20 release atorvastatin 40 mg tablet 40 mg PO DAILY #90 tab 07/10/20 losartan 100 1 tab PO DAILY #90 tab 08/19/20 mg-hydrochlorothiazide 25 mg tablet Allergies Allergy/AdvReac Type Severity Reaction Status Date / Time hydrocodone Allergy Unknown RASH Verified 04/19/21 15:56 General Stated Complaint: GenMedical DEANNA: 3 Review of Systems All systems reviewed & are unremarkable except as noted in HPI and below Constitutional Constitutional: Reports as per HPI, Denies chills, Denies fever(s) and Reports headache(s) Eyes Eyes: Denies blurry vision ENT Ears, Nose, Mouth, and Throat: Reports dizziness, Reports headache(s), Denies sore throat and Denies throat swelling Cardiovascular Cardiovascular: Denies chest pain and Denies dyspnea Respiratory Respiratory: Denies cough and Denies dyspnea Gastrointestinal Gastrointestinal: Denies abdominal pain, Denies diarrhea and Denies vomiting Genitourinary Genitourinary: Denies hematuria and Denies dysuria Musculoskeletal Musculoskeletal: Denies back pain and Denies numbness Integumentary/Breasts Skin/Breast: Denies lesions and Denies rash Neurologic Neurologic: Reports dizziness, Reports headache(s), Denies localized weakness, Denies numbness and Reports other visual disturbances Allergic/Immunologic Allergic/Immunologic: Denies throat swelling [facility] Medical History (Updated 04/19/21 @ 19:09 by Jonas Magana) Breast lump Breast lump Coronary arteriosclerosis Coronary arteriosclerosis (11/16/13) stent placed RCA 10/16 Essential hypertension Essential hypertension Exercise-induced asthma External carotid artery stenosis (~06/03/18) Fracture of head of radius (09/29/14) Fracture of metatarsal bone Hearing problem Hyperlipidemia Hyperlipidemia (09/11/08) borderline Low back pain (01/13/16) Non-alcoholic fatty liver disease Non-alcoholic fatty liver disease Osteopenia Osteopenia (06/03/04) T= -1.7; -0.8; -1.4 Palpitations Palpitations (12/19/13) Recurrent falls (04/14/16) Sebaceous cyst Sensorineural deafness Sensorineural hearing loss, bilateral (05/14/14) Fit with bilateral hearing aids, 05/14/14; 02/13/2020 Sinusitis Subclavian steal syndrome BP always on Right side NO MARSH if bypass needed Surgical History section x 2 Cholecystectomy (~2000) endometrial biopsy (~2003) negative History of section History of unilateral oophorectomy Hysterectomy, Laproscopic (~2006) Oophrectomy, unilateral (~1994) ovarian cyst Status post cholecystectomy Status post laparoscopic hysterectomy Stent placement 10/2013 Family History Mother Diabetes Essential hypertension Personal history of malignant neoplasm Breast Heart disease Hyperlipidemia Stroke Father , age 75 Alcohol abuse Chronic obstructive lung disease Sister Diabetes Essential hypertension Hyperlipidemia Chronic obstructive lung disease Breast cancer Sister Essential hypertension Asthma Breast cancer Brother , age 58 Heart disease NC Daughter Breast cancer Brother Hyperlipidemia Asthma Hypertension Sister Asthma Son Diabetes Social History Smoking/Tobacco Use Status: Former Tobacco Use tobacco type: cigarettes Quit Date: 07/05/85 Tobacco: How many years used: 15 Second Hand Exposure: No Smoking risk assessment performed?: Yes Alcohol Intake: current Alcohol Intake frequency: holidays/special occasions only Alcohol type: wine Drug use: Never Substance use type: does not use Caregiver/Support person: No Household members: family Housing: house Communication Needs: None Do you need help understanding health information?: Never Pets and animals: No Sexually active: No Do you think of yourself as: straight/heterosexual What is your relationship status?: How often do you talk on the phone with friends or family?: three or more times per week How often do you get together with friends or relatives?: three or more times per week How often do you attend restorationism or restoration services?: 4 or more times per year Do you belong to any clubs or organized social groups?: no Panel score (0-1 are the most socially isolated patients): 2 What type of physical activity do you participate in: bicycling Duration: decline to answer Frequency: 1-2 times per week Niurka/Buddhism: Confucianism Special niurka needs: No Seatbelt use: always Helmet use: Yes Helmet use: always Drive intox or ride w/intox river driver: No Do you feel safe at home: Yes Do you feel safe in your relationship?: Yes Exam Const General: cooperative, healthy appearing and no acute distress HENMT Head: normal to inspection Ears: hearing grossly normal bilaterally, external ears normal and TM's normal bilaterally General nose exam: external nose normal Face and sinus: normal facial exam Mouth: oral mucosae normal Eyes General: appearance normal, both eyes and all related structures Pupils: PERRL EOM: EOM intact bilaterally Neck Neck: normal visual inspection and No submandibular swelling Lymphatic: no lymphadenopathy noted Chest Chest: normal inspection of the chest and no tenderness Resp Effort & Inspection: normal respiratory effort and able to speak in complete sentences Auscultation: clear to auscultation bilaterally Cardio Rate: regular rate Rhythm: regular rhythm GI Inspection: normal to inspection Palpation: soft, not firm, not rigid and nontender Auscultation: normal bowel sounds Skin General skin exam: no rashes or lesions noted Neuro General: patient alert, patient awake, patient oriented x3, moves all extremities, no meningeal signs and no focal motor deficits Cranial Nerves: CN's II-XI intact bilaterally Cognition: normal cognition Speech: speech normal Motor: muscle tone normal throughout, strength 5/5 throughout and no pronator drift Sensory Exam: no sensory deficits noted Extrem General: normal to inspection, full ROM, capillary refill normal, no calf tenderness bilaterally and no edema Psych Appearance: grossly normal Mental Status: mental status grossly normal Speech and Movement: speech and movement normal Affect: normal affect Course Vital Signs Vital signs: Vital Signs Temperature 98.4 F 04/19/21 15:52 Pulse 88 04/19/21 15:52 Respiratory Rate 16 04/19/21 15:52 Blood Pressure 180/75 H 04/19/21 15:52 Pulse Oximetry 98 04/19/21 15:52 Temperature 98.4 F 04/19/21 15:52 Temperature Source Tympanic 04/19/21 15:52 Pulse 88 04/19/21 15:52 Respiratory Rate 16 04/19/21 15:52 Blood Pressure 180/75 H 04/19/21 15:52 Blood Pressure Position Sitting 04/19/21 15:52 Pulse Oximetry 98 04/19/21 15:52 Oxygen Delivery Method Room Air 04/19/21 15:52 Oxygen Flow Rate 0 04/19/21 15:52 Pain Level 4 04/19/21 15:52
--- NOTE | 2021-04-19 16:12 | DI.RAD_ITS ---
Exam(s) XR CHEST 2V PA LATERAL EXAM: XR CHEST 2V PA LATERAL CLINICAL HISTORY: dizziness, r/o acute disease TECHNIQUE: 2D digital imaging was performed of the chest. To images were obtained. PA and lateral views were obtained. COMPARISON: CR CHEST 2 VIEWS PA,LAT from 06/01/2016 CR CHEST 2 VIEWS PA,LAT from 06/01/2016 FINDINGS: MEDIASTINUM: Normal. HEART: Normal. PULMONARY VASCULATURE: Normal. LUNGS: There are increased opacities in the lung bases, right greater than left. No focal consolidat ing infiltrate. PLEURAL SPACE: No pleural effusion or pneumothorax. BONE:Within normal limits for the patient's age. OTHER FINDINGS:Normal. IMPRESSION: Increased opacities in the lung bases. This may reflect infection or inflammation. Please correlate clinically. DATA REPOSITORY: RADIATION DOSE DELIVERED:
[2021-04-19] MEDS: Normal Saline 500 ML IV ×2 (16:24→19:20)
[2021-04-19] MEDS: Normal Saline Flush 10 ML SYR IVP ×3 (16:49→21:28)
[2021-04-19 16:51] LABS: Abs Immature Grans 0.01 10^3/uL (0.0-0.06); Absolute Basophil Count 0.05 10^3/uL (0.0-0.2); Absolute Eosinophil Count 0.26 10^3/uL (0.0-0.7); Absolute Lymphocyte Count 1.95 10^3/uL (1.2-3.4); Absolute Monocyte Count 0.59 10^3/uL (0.1-0.8); Absolute Neutrophil Count 3.29 10^3/uL (1.2-6.7); Basophils % 0.8; Eosinophils % 4.2; HCT 42.2 % (36.0-46.0); Immature Grans % 0.2; Lymphocytes % 31.7; MCH 29.7 pg (27.0-33.0); MCHC 33.2 % (32.0-36.0); MCV 89.6 fL (80-95); MPV 9.6 fL (8.0-11.0); Monocytes % 9.6; Neutrophils % 53.5; Nucleated RBC 0 %; Platelet Count 296 10^3/uL (130-400); RBC 4.71 10^6/uL (3.93-5.22); RDW 12.7 % (11.7-14.6); RDW-SD 42.3 fL; WBC 6.15 10^3/uL (4.4-10.8)
[2021-04-19] MEDS: Omnipaque 350 MG/ML 100 ML BTL IJ (17:00)
[2021-04-19 17:04] LABS: ALT 52 U/L (14-59); AST 15 U/L (15-37); Albumin 4.2 g/dL (3.4-5.0); Alkaline Phosphatase 83 U/L (46-116); Anion Gap 9.4 mmol/L (3-11); BUN 13 mg/dL (7-18); Bilirubin, Total 0.3 mg/dL (0.2-1.0); CO2 30.6 mmol/L (21.0-32.0); CREATININE 0.8 mg/dL (0.55-1.02); Calcium 9.6 mg/dL (8.5-10.1); Chloride 101 mmol/L (98-107); Glucose 94 mg/dL (74-106); Magnesium 2.3 mg/dL (1.8-2.4); Potassium 3.6 mmol/L (3.5-5.1); Sodium 141 mmol/L (136-145); Total Protein 7.9 g/dL (6.4-8.2)
[2021-04-19 17:06] LABS: Troponin I < 0.05 ng/mL (<0.06)
[2021-04-19 17:31] LABS: ESR 21 mm/hr (0-30)
--- NOTE | 2021-04-19 17:51 | DI.VRAD_ITS ---
PROCEDURE INFORMATION: Exam: CT Angiography Head With Contrast, Arteriography Exam date and time: 04/19/2021 4:14 PM Age: 70 years old Clinical indication: Other: Headache, blurry vision, dizziness TECHNIQUE: Imaging protocol: Computed tomography angiography of the head with contrast. Exam focused on the arteries. 3D rendering (Not supervised by radiologist): MIP and/or 3D reconstructed images were created by the technologist. Contrast material: OMNIPAQUE 350; Contrast volume: 85 ml; Contrast route: INTRAVENOUS (IV); COMPARISON: CR XR cervical spine comp 4-5V 03/13/2019 2:38 PM FINDINGS: ANTERIOR CIRCULATION: Right internal carotid artery: Mild calcified plaque of the right internal carotid artery, without significant stenosis. No aneurysm formation. Right middle cerebral artery: Unremarkable. No occlusion or significant stenosis. No aneurysm. Right anterior cerebral artery: Unremarkable. No occlusion or significant stenosis. No aneurysm. Left internal carotid artery: Mild calcified plaque of the left internal carotid artery, without significant stenosis. No aneurysm formation. Left middle cerebral artery: Unremarkable. No occlusion or significant stenosis. No aneurysm. Left anterior cerebral artery: Unremarkable. No occlusion or significant stenosis. No aneurysm. POSTERIOR CIRCULATION: Right vertebral artery: Unremarkable. No occlusion or significant stenosis. No aneurysm. Left vertebral artery: Unremarkable. No occlusion or significant stenosis. No aneurysm. Basilar artery: Unremarkable. No occlusion or significant stenosis. No aneurysm. Right posterior cerebral artery: Unremarkable. No occlusion or significant stenosis. No aneurysm. Left posterior cerebral artery: Unremarkable. No occlusion or significant stenosis. No aneurysm. Veins: No venous sinus thrombosis is appreciated. Brain: No CT evidence of acute transcortical infarction. No acute intracranial hemorrhage, edema, midline shift, or mass effect. Cerebral ventricles: No ventriculomegaly. Bones/joints: Unremarkable. No acute fracture. Auditory system: Note is made of dehiscence at the left jugular bulb, protruding into the left middle ear. Soft tissues: Unremarkable. IMPRESSION: 1. No anterior large vessel occlusion is appreciated. Mild intracranial arteriosclerosis. 2. Findings consistent with dehiscence of the left jugular bulb protruding into the left middle ear. PROCEDURE INFORMATION: Exam: CT Angiography Neck With Contrast Exam date and time: 04/19/2021 4:14 PM Age: 70 years old Clinical indication: Other: Headache, blurry vision, dizziness TECHNIQUE: Imaging protocol: Computed tomography angiography of the neck with contrast. 3D rendering (Not supervised by radiologist): MIP and/or 3D reconstructed images were created by the technologist. Contrast material: OMNIPAQUE 350; Contrast volume: 85 ml; Contrast route: INTRAVENOUS (IV); COMPARISON: 1. SC US carotid 06/01/2018 3:47:00 PM 2. CR XR cervical spine comp 4-5V 03/13/2019 2:38 PM FINDINGS: Right common carotid artery: [id number] atherosclerotic disease of the right common carotid artery, with mild vessel stenosis. Right internal carotid artery: Mixed calcified and atheromatous plaque at the right internal carotid artery origin. Stenosis is measured at 72% by NASCET criteria. Right external carotid artery: No occlusion or stenosis of the origin. Left common carotid artery: Mild atherosclerosis of the left common carotid artery, without significant stenosis. Left internal carotid artery: Predominantly calcified plaque at the left carotid bifurcation and internal carotid artery origin. Stenosis is measured at 49% by NASCET criteria. Left external carotid artery: No occlusion or stenosis of the origin. Right vertebral artery: The right vertebral artery origin is suboptimally evaluated secondary to adjacent dense intravascular contrast. The remainder of the cervical right vertebral artery is unremarkable in course and caliber. Left vertebral artery: Differential opacification of the left vertebral artery as compared to the right, concerning for subclavian steal phenomenon and retrograde flow through the vertebral artery. Left subclavian artery: Concern for critical stenosis or complete occlusion of the proximal left subclavian artery proximal to the vertebral artery origin. Aorta: Mild atherosclerosis at the aortic arch. Thyroid: Nodularity of the thyroid gland, with dominant left thyroid nodule measuring up to 0.8 cm. By ACR guidance, no further follow-up is recommended. Lymph nodes: There is possibly an element of mediastinal lymphadenopathy, incompletely evaluated. Soft tissues: Normal. No significant soft tissue swelling. Bones/joints: Diffuse degenerative changes of the cervical spine, with retrolisthesis and endplate osteophyte formation at C5 on C6. This results in moderate spinal canal stenosis and severe neural foraminal narrowing. Lungs: Patchy differential aeration of the visualized upper lung bowden, a nonspecific finding that may be related to phase of inspiration. Mild emphysema. IMPRESSION: 1. Critical stenosis or complete occlusion of the proximal left subclavian artery, with concern for left subclavian steal phenomenon. Reversal of flow was also described on prior carotid ultrasound 06/01/2018. 2. Severe stenosis at the right internal carotid artery origin measuring 72% by NASCET criteria. 3. Borderline moderate stenosis at the left internal carotid artery origin measuring 49% by NASCET criteria. 4. Degenerative changes of the cervical spine, greatest at C5-C6. REFERENCES: NASCET CRITERIA. The degree of internal carotid artery stenosis is based on NASCET criteria. Normal is no stenosis. Mild is less than 50% stenosis. Moderate is 50-69% stenosis. Severe is 70% to 99% stenosis. Total occlusion is no detectable patent lumen. Dictated and Authenticated by: Federico Vickers MD. Ordering:BAMBI Foote MD
--- NOTE | 2021-04-19 17:53 | DI.VRAD_ITS ---
PROCEDURE INFORMATION: Exam: XR Chest Exam date and time: 04/19/2021 5:16 PM Age: 70 years old Clinical indication: Cough TECHNIQUE: Imaging protocol: XR of the chest. Views: 2 views. COMPARISON: CR CHEST 2 VIEWS PA,LAT 06/01/2016 5:55 PM FINDINGS: Lungs: Subtle patchy airspace opacities of the right greater than left lower lungs. Pleural spaces: Unremarkable. No pleural effusion. No pneumothorax. Heart/Mediastinum: Unremarkable. No cardiomegaly. Vasculature: Mild atherosclerosis of the descending thoracic aorta and aortic arch. Bones/joints: Grossly stable degenerative changes of the visualized lower thoracic and upper lumbar spine. Organs: Surgical clips of the right upper quadrant are consistent with prior cholecystectomy. IMPRESSION: Subtle patchy airspace opacities of the right greater than left lower lungs, concerning for infection or inflammation. Dictated and Authenticated by: Federico Vickers MD. Ordering:BAMBI Foote MD
[2021-04-19] MEDS: Aspirin 81 MG CHEW 243 MG CH (18:43)
[2021-04-19] MEDS: Clopidogrel 300 MG TAB 600 MG PO (18:44)
[2021-04-19 18:51] LABS: Source Nasal/Nares
--- NOTE | 2021-04-19 18:59 | W.PM.HP.N ---
Date of service: 04/19/21 Time of Service: 18:59 Assessment and Plan Assessment and plan (1) TIA (transient ischemic attack): Start date: 04/19/21 Status: Acute Assessment and plan: This is a 70-year-old lady with 1 week history of neurological changes which are concerning especially with her CT findings of severe stenosis of the right carotid and her subclavian steal which was known but some carotid stenosis of the left as well. Most of her symptoms appear to be visual and improved with closing either the right or left eye with monocular vision normal. This does not suggest central nervous system dysfunction other than cranial nerve involvement which is not evident by exam of the extraocular movement. Patient does have associated left frontal headache and no focal motor complaints. She is on increased antiplatelet therapy with her advanced ASVD with left subclavian steal and carotid stenosis worse on the right than left. Her neuro checks have not been positive and she is pending MRI of the brain before discharge. She will be observed until MRI can be obtained. Consider echocardiogram as well. (2) Essential hypertension: Status: Chronic Assessment and plan: Patient is usual outpatient medications will be adjusted for permissive hypertension with her acute neurological symptoms. (3) Pneumonia: Status: Acute Assessment and plan: Coincidental finding on CT the patient to be placed on doxycycline until further investigations the daytime hospitalist. Patient is not symptomatic. Qualifiers: Laterality: bilateral Lung location: lower lobe of lung Pneumonia type: due to unspecified organism Qualified Code(s): J18.9 - Pneumonia, unspecified organism (4) Subclavian steal syndrome: Status: Chronic Assessment and plan: Chronic and stable appearing but contributing to patient's decreased blood flow to the brain. (5) Coronary arteriosclerosis: Status: Chronic Assessment and plan: Continue outpatient medical therapy and monitor with telemetry. Consider updating echocardiogram. (6) Hyperlipidemia: Status: Chronic Assessment and plan: Continue statin therapy. Qualifiers: Hyperlipidemia type: mixed hyperlipidemia Qualified Code(s): E78.2 - Mixed hyperlipidemia History of Present Illness History of Present Illness Chief Complaint: Double vision with less visual field defect and left-sided headache Narrative: This is a 70-year-old female patient with a history of left subclavian steal, hypertension, hyperlipidemia and stress-induced asthma as well as CAD with stent placement in the past who presented with a 1 week history of intermittent dizziness, double vision seeing people [id number] and left-sided headache with left visual field blurriness. Visual changes would go away when patient with close either her right or left eye. She does have baseline change in vision which is not new and does not need glasses. Evaluation in the ED did not result in any acute cerebral or carotid artery stenosis though there were some stenoses and left subclavian steal was seen again as in 2018. At the time I examined the patient she was having continued left visual field difficulty asked me to stand on her right side. She appeared comfortable and was very talkative and appears slightly anxious. Teleneurology did advise increased antiplatelet therapy with patient already being on aspirin. She was loaded with aspirin and Plavix in the ED and will continue a baby aspirin daily with Plavix 75 mg daily. Recommendations were for MRI with no mention of echocardiogram though this could be entertained. Patient is not having escalating symptoms and appears to be stabilized. She has been for observation and neuro checks. She is on telemetry. Review of Systems Narrative: 13 point review of systems otherwise unrevealing or stable. Patient does complain of headache over her left forehead. [facility] Medical History Breast lump Breast lump Coronary arteriosclerosis Coronary arteriosclerosis (11/16/13) stent placed RCA 10/16 Essential hypertension Essential hypertension Exercise-induced asthma External carotid artery stenosis (~06/03/18) Fracture of head of radius (09/29/14) Fracture of metatarsal bone Hearing problem Hyperlipidemia Hyperlipidemia (09/11/08) borderline Low back pain (01/13/16) Non-alcoholic fatty liver disease Non-alcoholic fatty liver disease Osteopenia Osteopenia (06/03/04) T= -1.7; -0.8; -1.4 Palpitations Palpitations (12/19/13) Recurrent falls (04/14/16) Sebaceous cyst Sensorineural deafness Sensorineural hearing loss, bilateral (05/14/14) Fit with bilateral hearing aids, 05/14/14; 02/13/2020 Sinusitis Subclavian steal syndrome BP always on Right side NO MARSH if bypass needed Surgical History section x 2 Cholecystectomy (~2000) endometrial biopsy (~2003) negative History of section History of unilateral oophorectomy Hysterectomy, Laproscopic (~2006) Oophrectomy, unilateral (~1994) ovarian cyst Status post cholecystectomy Status post laparoscopic hysterectomy Stent placement 10/2013 Family History Mother Diabetes Essential hypertension Personal history of malignant neoplasm Breast Heart disease Hyperlipidemia Stroke Father , age 75 Alcohol abuse Chronic obstructive lung disease Sister Diabetes Essential hypertension Hyperlipidemia Chronic obstructive lung disease Breast cancer Sister Essential hypertension Asthma Breast cancer Brother , age 58 Heart disease IN Daughter Breast cancer Brother Hyperlipidemia Asthma Hypertension Sister Asthma Son Diabetes Social History Smoking/Tobacco Use Status: Former Tobacco Use tobacco type: cigarettes Quit Date: 07/05/85 Tobacco: How many years used: 15 Second Hand Exposure: No Smoking risk assessment performed?: Yes Alcohol Intake: current Alcohol Intake frequency: holidays/special occasions only Alcohol type: wine Drug use: Never Substance use type: does not use Caregiver/Support person: No Household members: family Housing: house Communication Needs: None Do you need help understanding health information?: Never Pets and animals: No Sexually active: No Do you think of yourself as: straight/heterosexual What is your relationship status?: How often do you talk on the phone with friends or family?: three or more times per week How often do you get together with friends or relatives?: three or more times per week How often do you attend cheondoism or christian services?: 4 or more times per year Do you belong to any clubs or organized social groups?: no Panel score (0-1 are the most socially isolated patients): 2 What type of physical activity do you participate in: bicycling Duration: decline to answer Frequency: 1-2 times per week Niurka/Jewish: Jehovah'S Witness Special niurka needs: No Seatbelt use: always Helmet use: Yes Helmet use: always Drive intox or ride w/intox courier driver: No Do you feel safe at home: Yes Do you feel safe in your relationship?: Yes Meds Allergies and Home Medications Allergies Allergy/AdvReac Type Severity Reaction Status Date / Time hydrocodone Allergy Unknown RASH Verified 04/19/21 15:56 Home Medications Medication Instructions Recorded Confirmed Type ascorbic acid (vitamin C) [Vitamin 500 mg PO DAILY 02/27/14 04/19/21 History C] albuterol sulfate 90 mcg/actuation 2 puff INHALATION Q6H PRN #6.7 g 07/10/20 04/19/21 Rx aerosol inhaler amlodipine 5 mg tablet 5 mg PO DAILY #90 tab 07/10/20 04/19/21 Rx aspirin 81 mg tablet,delayed 81 mg PO DAILY #90 tab-cap 07/10/20 04/19/21 Rx release atorvastatin 40 mg tablet 40 mg PO DAILY #90 tab 07/10/20 04/19/21 Rx losartan 100 1 tab PO DAILY #90 tab 08/19/20 04/19/21 Rx mg-hydrochlorothiazide 25 mg tablet Exam Narrative Exam Narrative: General: Patient appears appropriate for age, pressured speech with slightly anxious affect, good eye contact. Alert and oriented x3. In no acute distress. HEENT: Normocephalic, eyes with pupils equal and reactive to light symmetrically, extraocular movement intact and conjugate in all directions, no nystagmus, sclera anicteric. Oropharynx with moist mucosa and fair dentition. Neck: Supple without JVD. Loud carotid bruit in the right more than left. Back: Slightly stooped posture without CVA tenderness. Lungs: Fair aeration and clear to auscultation percussion. Breast: Exam deferred. Heart: Regular rate and rhythm with no appreciable murmur or gallop. Abdomen: Obese contour, soft nontender palpation with no palpable hepatosplenomegaly. Extremities: Without clubbing, cyanosis or pitting edema. Peripheral pulses intact. Skin: Normal color, warm and dry. Neuro: cranial nerves II through XII grossly intact except for decreased visual acuity on the left with patient seeing objects but not detail. No focalizing motor deficits. No tremor. Psych: Anxious affect but normal mood and no abnormal thought processes. Remote and recent memory grossly intact. Results Imaging Imaging Studies: Exam: CT Angiography Head With Contrast, Arteriography Exam date and time: 04/19/2021 4:14 PM Age: 70 years old Clinical indication: Other: Headache, blurry vision, dizziness TECHNIQUE: Imaging protocol: Computed tomography angiography of the head with contrast. Exam focused on the arteries. 3D rendering (Not supervised by radiologist): MIP and/or 3D reconstructed images were created by the technologist. Contrast material: OMNIPAQUE 350; Contrast volume: 85 ml; Contrast route: INTRAVENOUS (IV); COMPARISON: CR XR cervical spine comp 4-5V 03/13/2019 2:38 PM FINDINGS: ANTERIOR CIRCULATION: Right internal carotid artery: Mild calcified plaque of the right internal carotid artery, without significant stenosis. No aneurysm formation. Right middle cerebral artery: Unremarkable. No occlusion or significant stenosis. No aneurysm. Right anterior cerebral artery: Unremarkable. No occlusion or significant stenosis. No aneurysm. Left internal carotid artery: Mild calcified plaque of the left internal carotid artery, without significant stenosis. No aneurysm formation. Left middle cerebral artery: Unremarkable. No occlusion or significant stenosis. No aneurysm. Left anterior cerebral artery: Unremarkable. No occlusion or significant stenosis. No aneurysm. POSTERIOR CIRCULATION: Right vertebral artery: Unremarkable. No occlusion or significant stenosis. No aneurysm. Left vertebral artery: Unremarkable. No occlusion or significant stenosis. No aneurysm. Basilar artery: Unremarkable. No occlusion or significant stenosis. No aneurysm. Right posterior cerebral artery: Unremarkable. No occlusion or significant stenosis. No aneurysm. Left posterior cerebral artery: Unremarkable. No occlusion or significant stenosis. No aneurysm. Veins: No venous sinus thrombosis is appreciated. Brain: No CT evidence of acute transcortical infarction. No acute intracranial hemorrhage, edema, midline shift, or mass effect. Cerebral ventricles: No ventriculomegaly. Bones/joints: Unremarkable. No acute fracture. Auditory system: Note is made of dehiscence at the left jugular bulb, protruding into the left middle ear. Soft tissues: Unremarkable. IMPRESSION: 1. No anterior large vessel occlusion is appreciated. Mild intracranial arteriosclerosis. 2. Findings consistent with dehiscence of the left jugular bulb protruding into the left middle ear. PROCEDURE INFORMATION: Exam: CT Angiography Neck With Contrast Exam date and time: 04/19/2021 4:14 PM Age: 70 years old Clinical indication: Other: Headache, blurry vision, dizziness TECHNIQUE: Imaging protocol: Computed tomography angiography of the neck with contrast. 3D rendering (Not supervised by radiologist): MIP and/or 3D reconstructed images were created by the technologist. Contrast material: OMNIPAQUE 350; Contrast volume: 85 ml; Contrast route: INTRAVENOUS (IV); COMPARISON: 1. SC US carotid 06/01/2018 3:47:00 PM 2. CR XR cervical spine comp 4-5V 03/13/2019 2:38 PM FINDINGS: Right common carotid artery: [id number] atherosclerotic disease of the right common carotid artery, with mild vessel stenosis. Right internal carotid artery: Mixed calcified and atheromatous plaque at the right internal carotid artery origin. Stenosis is measured at 72% by NASCET criteria. Right external carotid artery: No occlusion or stenosis of the origin. Left common carotid artery: Mild atherosclerosis of the left common carotid artery, without significant stenosis. Left internal carotid artery: Predominantly calcified plaque at the left carotid bifurcation and internal carotid artery origin. Stenosis is measured at 49% by NASCET criteria. Left external carotid artery: No occlusion or stenosis of the origin. Right vertebral artery: The right vertebral artery origin is suboptimally evaluated secondary to adjacent dense intravascular contrast. The remainder of the cervical right vertebral artery is unremarkable in course and caliber. Left vertebral artery: Differential opacification of the left vertebral artery as compared to the right, concerning for subclavian steal phenomenon and retrograde flow through the vertebral artery. Left subclavian artery: Concern for critical stenosis or complete occlusion of the proximal left subclavian artery proximal to the vertebral artery origin. Aorta: Mild atherosclerosis at the aortic arch. Thyroid: Nodularity of the thyroid gland, with dominant left thyroid nodule measuring up to 0.8 cm. By ACR guidance, no further follow-up is recommended. Lymph nodes: There is possibly an element of mediastinal lymphadenopathy, incompletely evaluated. Soft tissues: Normal. No significant soft tissue swelling. Bones/joints: Diffuse degenerative changes of the cervical spine, with retrolisthesis and endplate osteophyte formation at C5 on C6. This results in moderate spinal canal stenosis and severe neural foraminal narrowing. Lungs: Patchy differential aeration of the visualized upper lung bowden, a nonspecific finding that may be related to phase of inspiration. Mild emphysema. IMPRESSION: 1. Critical stenosis or complete occlusion of the proximal left subclavian artery, with concern for left subclavian steal phenomenon. Reversal of flow was also described on prior carotid ultrasound 06/01/2018. 2. Severe stenosis at the right internal carotid artery origin measuring 72% by NASCET criteria. 3. Borderline moderate stenosis at the left internal carotid artery origin measuring 49% by NASCET criteria. 4. Degenerative changes of the cervical spine, greatest at C5-C6. REFERENCES: NASCET CRITERIA. The degree of internal carotid artery stenosis is based on NASCET criteria. Normal is no stenosis. Mild is less than 50% stenosis. Moderate is 50-69% stenosis. Severe is 70% to 99% stenosis. Total occlusion is no detectable patent lumen. Dictated and Authenticated by: Federico Vickers MD. Exam: XR Chest Exam date and time: 04/19/2021 5:16 PM Age: 70 years old Clinical indication: Cough TECHNIQUE: Imaging protocol: XR of the chest. Views: 2 views. COMPARISON: CR CHEST 2 VIEWS PA,LAT 06/01/2016 5:55 PM FINDINGS: Lungs: Subtle patchy airspace opacities of the right greater than left lower lungs. Pleural spaces: Unremarkable. No pleural effusion. No pneumothorax. Heart/Mediastinum: Unremarkable. No cardiomegaly. Vasculature: Mild atherosclerosis of the descending thoracic aorta and aortic arch. Bones/joints: Grossly stable degenerative changes of the visualized lower thoracic and upper lumbar spine. Organs: Surgical clips of the right upper quadrant are consistent with prior cholecystectomy. IMPRESSION: Subtle patchy airspace opacities of the right greater than left lower lungs, concerning for infection or inflammation. Dictated and Authenticated by: Federico Vickers MD. Labs Result diagrams: 04/20/21 06:32 04/19/21 16:15 Labs: Laboratory Results - last 24 hr 04/19/21 04/19/21 04/19/21 16:15 16:15 16:15 WBC 6.15 RBC 4.71 Hgb 14.0 Hct 42.2 MCV 89.6 MCH 29.7 MCHC 33.2 RDW 12.7 Plt Count 296 MPV 9.6 Immature Gran % 0.2 Neutrophils % 53.5 Lymphocytes % 31.7 Monocytes % 9.6 Eosinophils % 4.2 Basophils % 0.8 Nucleated RBC % 0 Absolute Neutrophils 3.29 Absolute Lymphocytes 1.95 Absolute Monocytes 0.59 Absolute Eosinophils 0.26 Absolute Basophils 0.05 ESR 21 Sodium 141 Potassium 3.6 Chloride 101 Carbon Dioxide 30.6 Anion Gap 9.4 BUN 13 Creatinine 0.8 Estimated GFR/1.73 m2 >= 60.00 Glucose 94 Calcium 9.6 Magnesium 2.3 Total Bilirubin 0.3 AST 15 ALT 52 Alkaline Phosphatase 83 Troponin I < 0.05 Total Protein 7.9 Albumin 4.2 COVID-19 Source 04/19/21 18:40 WBC RBC Hgb Hct MCV MCH MCHC RDW Plt Count MPV Immature Gran % Neutrophils % Lymphocytes % Monocytes % Eosinophils % Basophils % Nucleated RBC % Absolute Neutrophils Absolute Lymphocytes Absolute Monocytes Absolute Eosinophils Absolute Basophils ESR Sodium Potassium Chloride Carbon Dioxide Anion Gap BUN Creatinine Estimated GFR/1.73 m2 Glucose Calcium Magnesium Total Bilirubin AST ALT Alkaline Phosphatase Troponin I Total Protein Albumin COVID-19 Source Nasal/Nares Last Vital Signs Temp 36.9 C 04/19/21 15:52 Pulse 85 04/19/21 18:31 Resp 14 04/19/21 16:40 BP 188/76 H 04/19/21 18:31 Pulse Ox 97 04/19/21 18:32
--- NOTE | 2021-04-19 19:20 | NUR.NOTE ---
Nursing Note: Meal provided to patient per request.
[2021-04-19] MEDS: Heparin 5,000 UNITS/ML VIAL 5000 UNITS SC (21:26)
[2021-04-19] MEDS: cefTRIAXone 1 GM/50 ML BAG IVPB (21:27)
[2021-04-19] MEDS: Losartan 25 MG TAB 50 MG PO (21:31)
[2021-04-19] MEDS: Atorvastatin 40 MG TAB PO (21:31)
[2021-04-19] MEDS: DOXYCYCLINE 100 MG in Normal Saline 100 ML IVPB (22:49)
[2021-04-20] VITALS (7 sets, daily range): BP systolic 106–135; BP diastolic 61–72; PULSE 59–78; RESP 16–22; TEMP 36.2–36.8; O2SAT 94–98
[2021-04-20] MEDS: Normal Saline Flush 10 ML SYR IVP (03:10)
[2021-04-20] MEDS: Heparin 5,000 UNITS/ML VIAL 5000 UNITS SC ×3 (06:00→21:05)
[2021-04-20 06:51] LABS: Abs Immature Grans 0.02 10^3/uL (0.0-0.06); Absolute Basophil Count 0.06 10^3/uL (0.0-0.2); Absolute Eosinophil Count 0.25 10^3/uL (0.0-0.7); Absolute Lymphocyte Count 1.47 10^3/uL (1.2-3.4); Absolute Monocyte Count 0.47 10^3/uL (0.1-0.8); Absolute Neutrophil Count 2.63 10^3/uL (1.2-6.7); Basophils % 1.2; Eosinophils % 5.1; HCT 39.3 % (36.0-46.0); HGB 13.2 g/dL (11.2-15.7); Immature Grans % 0.4; MCH 30.6 pg (27.0-33.0); MCHC 33.6 % (32.0-36.0); MCV 91.2 fL (80-95); MPV 9.3 fL (8.0-11.0); Monocytes % 9.6; Neutrophils % 53.7; Nucleated RBC 0 %; Platelet Count 278 10^3/uL (130-400); RBC 4.31 10^6/uL (3.93-5.22); RDW 12.7 % (11.7-14.6); RDW-SD 42.7 fL
[2021-04-20 07:02] LABS: Prothrombin Time 10.4 sec (9.3-11.0)
[2021-04-20 07:14] LABS: Calculated LDL 71 mg/dL (<100); Cholesterol 160 mg/dL (<200); HDL Cholesterol 73 mg/dL (40-60); Triglyceride 82 mg/dL (<150)
[2021-04-20 08:07] LABS: COVID-19 PCR Negative (Negative)
[2021-04-20] MEDS: Aspirin E.C. 81 MG TABEC PO (08:58)
[2021-04-20] MEDS: Losartan 25 MG TAB 50 MG PO ×2 (08:58→19:38)
[2021-04-20] MEDS: amLODIPine 5 MG TAB PO (08:58)
[2021-04-20] MEDS: Clopidogrel 75 MG TAB PO (08:58)
[2021-04-20] MEDS: Acetaminophen 325 MG TAB 650 MG PO ×2 (10:06→18:49)
--- NOTE | 2021-04-20 11:59 | INITIAL_ITS ---
- If Service Date Differs Date of service: 04/20/21 Time of Service: 11:59 Care Management Initial Assess REASON FOR HOSPITALIZATION:: TIA PAST MEDICAL HISTORY/PAST SURGICAL HISTORY:: Medical History. Breast lump. Breast lump. Coronary arteriosclerosis. Coronary arteriosclerosis (11/16/13). stent placed RCA 10/16. Essential hypertension. Essential hypertension. Exercise-induced asthma. External carotid artery stenosis (~06/03/18). Fracture of head of radius (09/29/14). Fracture of metatarsal bone. Hearing problem. Hyperlipidemia. Hyperlipidemia (09/11/08). borderline. Low back pain (01/13/16). Non-alcoholic fatty liver disease. Non-alcoholic fatty liver disease. Osteopenia. Osteopenia (06/03/04). T= -1.7; -0.8; -1.4. Palpitations. Palpitations (12/19/13). Recurrent falls (04/14/16). Sebaceous cyst. Sensorineural deafness. Sensorineural hearing loss, bilateral (05/14/14). Fit with bilateral hearing aids, 05/14/14; 02/13/2020. Sinusitis. Subclavian steal syndrome. BP always on Right side. NO MARSH if bypass needed. Surgical History. section. x 2. Cholecystectomy (~2000). endometrial biopsy (~2003). negative. History of section. History of unilateral oophorectomy. Hysterectomy, Laproscopic (~2006). Oophrectomy, unilateral (~1994). ovarian cyst. Status post cholecystectomy. Status post laparoscopic hysterectomy. Stent placement. 10/2013 PREVIOUS FUNCTIONAL STATUS/SOCIAL/FAMILY SUPPORTS:: Kisha lives in [place]. She has a son and a daughter, who both live closeby, and are supportive. She has other close family and friends who are supportive as well. She is independent at baseline. CURRENT FUNCTIONAL STATUS:: Kisha was sitting up in bed when CM met with her. She reported that she is feeling good today. She stated that per MD, she will remain overnight for an MRI tomorrow. She reported that she thought that she may be transferred, as her carotid artery is 72% blocked (per ED provider). CM asked the MD, who stated that this will likely require outpatient follow up at [facility]. She is comfortable remaining overnight to rule for work up. CM will continue to follow. ADVANCE DIRECTIVES:: On file, Ned listed as agent. Lm listed as alternate agent. Has patient been provided with info about the portal/API?: Yes Did the patient sign up for the portal?: Yes (active) CODE STATUS:: Full Code INSURANCE COVERAGE / FINANCIAL ISSUES:: [facility]/ [place]/ Health Plans (Primary for [facility]) CURRENT HOME/COMMUNITY SERVICES/EQUIPMENT:: No current services or equipment. PRIMARY CARE PHYSICIAN:: Eliana Urias MD POTENTIAL DISCHARGE NEEDS:: Follow up appointments. PATIENT/FAMILY EDUCATION NEEDS:: Review discharge instructions regarding activity levels and medications, discussion of self care needs including ask me three. ANTICIPATED BARRIERS TO DISCHARGE:: None identified. TRANSPORTATION:: Via private vehicle by family. PLAN:: Anticipate Kisha will return home when medically cleared. She will follow up with her PCP and discharge plan of care. Her family will drive her home via private vehicle. CM will continue to follow.
--- NOTE | 2021-04-20 15:14 | W.PM.PROGNOT ---
Date of Service Date of service: 04/20/21 Time of Service: 12:00 Assessment and Plan Assessment and plan (1) TIA (transient ischemic attack): Start date: 04/20/21 Start time: 12:00 Status: Suspected Assessment and plan: left subclavian steal and carotid stenosis worse on the right than left. Her neuro checks negative and MRI pending She will be observed until MRI can be obtained. Consider echocardiogram as well. Lipid panel with 160 total cholesterol ldl 71 HDL 73 Tryglcerides 82 ECHO [facility] Neuro consult (2) Essential hypertension: Start date: 04/20/21 Start time: 12:00 Status: Chronic Assessment and plan: continue home medications. (3) Pneumonia: Start date: 04/20/21 Start time: 12:00 Status: Ruled-out Assessment and plan: clinically no signs of pneumonia. afebrile, no leukocytosis, LSC, no cough. therefore will hold off on antibiotics. Give IS and monitor. Qualifiers: Pneumonia type: due to unspecified organism Laterality: bilateral Lung location: lower lobe of lung Qualified Code(s): J18.9 - Pneumonia, unspecified organism (4) Subclavian steal syndrome: Start date: 04/20/21 Start time: 12:00 Status: Chronic Assessment and plan: Chronic and stable appearing but contributing to patient's decreased blood flow to the brain. Increased atorvastin to 60 she states when she was on 80 mg she had bad cramps in her legs. will monitor for cramping at 60, on plavix and asa (5) Coronary arteriosclerosis: Start date: 04/20/21 Start time: 12:00 Status: Chronic Assessment and plan: Continue outpatient medical therapy and monitor with telemetry. (6) Hyperlipidemia: Start date: 04/20/21 Start time: 12:00 Status: Chronic Assessment and plan: Continue statin as above increased discussed with Dr. lugo Qualifiers: Hyperlipidemia type: mixed hyperlipidemia Qualified Code(s): E78.2 - Mixed hyperlipidemia Subjective Subjective Patient reports: no new complaints Interval history since last seen: Having blurred vision to left eye, right eye is not blurred, but when opening both eyes she sees blurry objects; otherwise no weakness or neurological deficits. MRI for tomorrow. neuro consult. Eating and drinking without difficulty. Exam Narrative Exam Narrative: General: Patient appears appropriate for age, pressured speech good eye contact. Alert and oriented x3. In no acute distress. HEENT: Normocephalic, eyes with pupils equal and reactive to light symmetrically, extraocular movement intact and conjugate in all directions, no nystagmus, sclera anicteric. Oropharynx with moist mucosa and fair dentition. Neck: Supple without JVD. Loud carotid bruit in the right more than left. Back: Slightly stooped posture without CVA tenderness. Lungs: Fair aeration and clear to auscultation percussion. Heart: Regular rate and rhythm with no appreciable murmur or gallop. Abdomen: Obese contour, soft nontender palpation with no palpable hepatosplenomegaly. Extremities: Without clubbing, cyanosis or pitting edema. Peripheral pulses intact. Skin: Normal color, warm and dry. Neuro: cranial nerves II through XII grossly intact except for decreased visual acuity on the left with patient seeing objects but not detail. No focalizing motor deficits. No tremor. Psych: normal mood and no abnormal thought processes. Remote and recent memory grossly intact. Objective Last Vital Signs Temp 36.8 C 04/20/21 11:25 Pulse 69 04/20/21 11:25 Resp 19 04/20/21 11:25 BP 135/70 04/20/21 11:25 Pulse Ox 95 04/20/21 11:25 Laboratory Results - last 24 hr 04/19/21 04/19/21 04/19/21 16:15 16:15 16:15 WBC 6.15 RBC 4.71 Hgb 14.0 Hct 42.2 MCV 89.6 MCH 29.7 MCHC 33.2 RDW 12.7 Plt Count 296 MPV 9.6 Immature Gran % 0.2 Neutrophils % 53.5 Lymphocytes % 31.7 Monocytes % 9.6 Eosinophils % 4.2 Basophils % 0.8 Nucleated RBC % 0 Absolute Neutrophils 3.29 Absolute Lymphocytes 1.95 Absolute Monocytes 0.59 Absolute Eosinophils 0.26 Absolute Basophils 0.05 ESR 21 PT INR Sodium 141 Potassium 3.6 Chloride 101 Carbon Dioxide 30.6 Anion Gap 9.4 BUN 13 Creatinine 0.8 Estimated GFR/1.73 m2 >= 60.00 Glucose 94 Calcium 9.6 Magnesium 2.3 Total Bilirubin 0.3 AST 15 ALT 52 Alkaline Phosphatase 83 Troponin I < 0.05 Total Protein 7.9 Albumin 4.2 Triglycerides Total Cholesterol LDL Cholesterol, Calc HDL Cholesterol COVID-19 Source SARS-CoV-2 (PCR) 04/19/21 04/20/21 04/20/21 18:40 06:32 06:32 WBC 4.90 RBC 4.31 Hgb 13.2 Hct 39.3 MCV 91.2 MCH 30.6 MCHC 33.6 RDW 12.7 Plt Count 278 MPV 9.3 Immature Gran % 0.4 Neutrophils % 53.7 Lymphocytes % 30.0 Monocytes % 9.6 Eosinophils % 5.1 Basophils % 1.2 Nucleated RBC % 0 Absolute Neutrophils 2.63 Absolute Lymphocytes 1.47 Absolute Monocytes 0.47 Absolute Eosinophils 0.25 Absolute Basophils 0.06 ESR PT INR Sodium Potassium Chloride Carbon Dioxide Anion Gap BUN Creatinine Estimated GFR/1.73 m2 Glucose Calcium Magnesium Total Bilirubin AST ALT Alkaline Phosphatase Troponin I Total Protein Albumin Triglycerides 82 Total Cholesterol 160 LDL Cholesterol, Calc 71 HDL Cholesterol 73 COVID-19 Source Nasal/Nares SARS-CoV-2 (PCR) Negative 04/20/21 06:32 WBC RBC Hgb Hct MCV MCH MCHC RDW Plt Count MPV Immature Gran % Neutrophils % Lymphocytes % Monocytes % Eosinophils % Basophils % Nucleated RBC % Absolute Neutrophils Absolute Lymphocytes Absolute Monocytes Absolute Eosinophils Absolute Basophils ESR PT 10.4 INR 1.0 Sodium Potassium Chloride Carbon Dioxide Anion Gap BUN Creatinine Estimated GFR/1.73 m2 Glucose Calcium Magnesium Total Bilirubin AST ALT Alkaline Phosphatase Troponin I Total Protein Albumin Triglycerides Total Cholesterol LDL Cholesterol, Calc HDL Cholesterol COVID-19 Source SARS-CoV-2 (PCR)
[2021-04-20] MEDS: Atorvastatin 40 MG TAB 60 MG PO (19:39)
[2021-04-21] VITALS (7 sets, daily range): BP systolic 115–138; BP diastolic 67–71; PULSE 63–78; RESP 16–18; TEMP 36.1–37; O2SAT 94–97
[2021-04-21] MEDS: Heparin 5,000 UNITS/ML VIAL 5000 UNITS SC ×2 (06:11→13:22)
[2021-04-21 07:20] LABS: HCT 41.5 % (36.0-46.0); HGB 13.8 g/dL (11.2-15.7); MCH 30.7 pg (27.0-33.0); MCHC 33.3 % (32.0-36.0); MCV 92.2 fL (80-95); MPV 9.5 fL (8.0-11.0); Platelet Count 305 10^3/uL (130-400); RDW-SD 44.3 fL; WBC 4.83 10^3/uL (4.4-10.8)
[2021-04-21] MEDS: amLODIPine 5 MG TAB PO (08:42)
[2021-04-21] MEDS: Losartan 25 MG TAB 50 MG PO (08:42)
[2021-04-21] MEDS: Aspirin E.C. 81 MG TABEC PO (08:42)
[2021-04-21] MEDS: Normal Saline Flush 10 ML SYR IVP (08:43)
[2021-04-21] MEDS: Clopidogrel 75 MG TAB PO (08:43)
--- NOTE | 2021-04-21 14:15 | DI.MRI_ITS ---
Exam(s) MR BRAIN WO EXAM: MR BRAIN WO CLINICAL HISTORY: TIA with visual defects, carotid stenosis TECHNIQUE: Multiplanar multisequence MRI of the brain was performed. COMPARISON: CT CT BRAIN NECK CTA from 04/19/[address] BRAIN NECK CTA from 04/19/2021 FINDINGS: CEREBRAL PARENCHYMA: There is no evidence of intracranial hemorrhage, mass effect, or shift of midline structures. There are no extra-axial fluid collections. Ventricles are not enlarged or shifted. There is no significant focal signal abnormality in the cerebellar hemispheres nor within the sandeep, m idbrain, and thalami. There are few small tiny foci of FLAIR bright signal abnormality in the right Emerita and supraventricul ar white matter consistent with chronic small vessel disease. There is no significant focal signal abnormality evident on diffusion imaging to suggest acute ischem ic event. PITUITARY GLAND: No mass nor parasellar abnormality. No obvious abnormality in the cavernous sinuses. FLOW VOIDS: The expected flow void are noted. No evidence of obvious aneurysm nor obvious vascular ma lformation. PARANASAL SINUSES: The visualized paranasal sinuses appear unremarkable. No obvious finding ORBITS: No obvious findings. IMPRESSION: No significant intracranial findings on this noninfused MRI scan of the brain. DATA REPOSITORY:
--- NOTE | 2021-04-21 15:22 | NCONE_ITS ---
Date of service: 04/21/21 Time of Service: 15:22 Assessment and Plan Assessment and plan (1) Vision changes: Status: Acute (2) Carotid stenosis, right: Status: Acute Assessment and plan: Ms. Ray is a 70 year-old, right-handed woman with: #1. Vision changes. She describes mostly left eye monocular blurred vision, though at times she also has noted diplopia. This is contrary to her exam which shows decreased vision in right eye (near vision). Her EOM are intact. Question of subtle R eye exotropia.... I am not sure what is going on. The monocular vision loss is not neurological and I agree with eye evaluation. Given at times she has diplopia, would recommend myasthenia gravis panel. Her clinical symptoms do not seem consistent with ischemia. Ok to stop clopidogrel. #2. New right > left carotid stenosis with known left subclavian steal syndrome. New stenosis compared to previous testing in 2018 despite maximal medical therapy ASA + statin + BP control. I recommend she return to vascular surgery for further evaluation. #3. Dehiscence of L jugular vein. Screen for hearing loss and/or tinnitus. She should f/up in neurology clinic in 4-6 weeks. History of Present Illness History of Present Illness Chief Complaint: dizziness and vision changes Narrative: Handedness: right. HPI: Ms. Ray is a 70 year-old woman with HTN, HLD, heart disease s/p stent, and known subclavian steal syndrome. She was admitted on 04/19/21 after noting 3 days of blurred/cloudy vision. She noted gradual onset of blurred/cloudy vision with at times noting horizontal diplopia (did not close one eye to see if monocular or binocular). Her symptoms continued such that she developed a headache and just did not feel right such that she presented to the ER on 04/19/21 and was admitted. The ER mentioned dizziness but she amends that she was not dizzy but that she was affected by distorted vision. In the ER, she was noted to have binocular visual disturbance with intact EOM. Her initial BP was 180/75 with no EKG changes. She was loaded with clopidogrel in addition to ASA and placed on DAPT for possible TIA/stroke (already on ASA and statin at baseline). Of note, she was last seen by Vascular Surgery at [facility] in June 2018 after incidental finding of subclavian steal after a CUS which was otherwise normal. They recommended medical management. Since admission, her vision changes have more localized to the left eye such that with the left eye close, she notes normal vision. She notes that she had her Pfizer booster on 04/05/21 and wonders if her current symptoms are related. After my visit, she reportedly told the hospitalist team that her vision symptoms started the day after her booster shot. Work-up: -CTH (04/19/21): unremarkable. I reviewed these images personally and this is my personal interpretation. -CTA head/neck (04/19/21): critical stenosis vs occlusion of proximal L subclavian artery with noted steal. Rads report severe R and moderate L ICA stenosis - she has plaque bilaterally. Appears moderate R and mild L to me. A lso noted to have dehiscence of L jugular bulb into the middle ear. I reviewed these images personally and this is my personal interpretation. -MRI brain (04/21/21): no acute findings. Mild chronic small vessel disease changes. Old right deep frontal punctate microhemorrhage. I reviewed these images personally and this is my personal interpretation. -TTE (04/21/21): normal EF. No wall motion abnormalities. LA normal. Consults Requesting physician: India Corley Review of Systems All systems reviewed & are unremarkable except as noted in HPI and below PFSH Medical History Breast lump Breast lump Coronary arteriosclerosis Coronary arteriosclerosis (11/16/13) stent placed RCA 10/16 Essential hypertension Essential hypertension Exercise-induced asthma External carotid artery stenosis (~06/03/18) Fracture of head of radius (09/29/14) Fracture of metatarsal bone Hearing problem Hyperlipidemia Hyperlipidemia (09/11/08) borderline Low back pain (01/13/16) Non-alcoholic fatty liver disease Non-alcoholic fatty liver disease Osteopenia Osteopenia (06/03/04) T= -1.7; -0.8; -1.4 Palpitations Palpitations (12/19/13) Recurrent falls (04/14/16) Sebaceous cyst Sensorineural deafness Sensorineural hearing loss, bilateral (05/14/14) Fit with bilateral hearing aids, 05/14/14; 02/13/2020 Sinusitis Subclavian steal syndrome BP always on Right side NO MARSH if bypass needed Surgical History section x 2 Cholecystectomy (~2000) endometrial biopsy (~2003) negative History of section History of unilateral oophorectomy Hysterectomy, Laproscopic (~2006) Oophrectomy, unilateral (~1994) ovarian cyst Status post cholecystectomy Status post laparoscopic hysterectomy Stent placement 10/2013 Family History Mother Diabetes Essential hypertension Personal history of malignant neoplasm Breast Heart disease Hyperlipidemia Stroke Father , age 75 Alcohol abuse Chronic obstructive lung disease Sister Diabetes Essential hypertension Hyperlipidemia Chronic obstructive lung disease Breast cancer Sister Essential hypertension Asthma Breast cancer Brother , age 58 Heart disease [place] Daughter Breast cancer Brother Hyperlipidemia Asthma Hypertension Sister Asthma Son Diabetes Social History Smoking/Tobacco Use Status: Former Tobacco Use tobacco type: cigarettes Quit Date: 07/05/85 Tobacco: How many years used: 15 Second Hand Exposure: No Smoking risk assessment performed?: Yes Alcohol Intake: current Alcohol Intake frequency: holidays/special occasions only Alcohol type: wine Drug use: Never Substance use type: does not use Caregiver/Support person: No Household members: family Housing: house Communication Needs: None Do you need help understanding health information?: Never Pets and animals: No Sexually active: No Do you think of yourself as: straight/heterosexual What is your relationship status?: How often do you talk on the phone with friends or family?: three or more times per week How often do you get together with friends or relatives?: three or more times per week How often do you attend restorationism or taoist services?: 4 or more times per year Do you belong to any clubs or organized social groups?: no Panel score (0-1 are the most socially isolated patients): 2 What type of physical activity do you participate in: bicycling Duration: decline to answer Frequency: 1-2 times per week Niurka/Mormon: Temple Special niurka needs: No Seatbelt use: always Helmet use: Yes Helmet use: always Drive intox or ride w/intox special client bus driver: No Do you feel safe at home: Yes Do you feel safe in your relationship?: Yes Visit Medication and Allergies Active Medications Generic Name Dose Route Start Last Admin Trade Name Freq PRN Reason Stop Dose Admin Acetaminophen 650 mg 04/19/21 18:48 04/20/21 18:49 Acetaminophen 325 Mg Tab PO 650 mg Q4H PRN PRN Administration Al Hydrox/Mg Hydrox/Simethicone 30 ml 04/19/21 18:48 Mylanta Suspension 30 Ml Cup PO Q2H PRN PRN Albuterol Sulfate 2.5 mg 04/19/21 18:48 Albuterol 2.5 Mg/3 Ml Inh Soln Vial UPD Q2H PRN PRN Albuterol Sulfate 2 puff 04/19/21 20:41 Albuterol Hfa 6.7 Gm 200 Puff Inh IH Q6H PRN PRN shortness of breath or wheezing Amlodipine Besylate 5 mg 04/20/21 08:30 04/21/21 08:42 Amlodipine 5 Mg Tab PO 5 mg DAILY HAI Administration Aspirin 81 mg 04/20/21 08:30 04/21/21 08:42 Aspirin E.C. 81 Mg Tabec PO 81 mg DAILY HAI Administration Atorvastatin Calcium 60 mg 04/20/21 20:00 04/20/21 19:39 Atorvastatin 40 Mg Tab PO 60 mg QPM HAI Administration Clopidogrel Bisulfate 75 mg 04/20/21 08:30 04/21/21 08:43 Clopidogrel 75 Mg Tab PO 75 mg DAILY HAI Administration Dimethicone/Zinc Oxide 0 gm 04/19/21 18:48 Patrick Protect Cream 142 Gm Tube TP PRN PRN Docusate Sodium 100 mg 04/19/21 18:48 Docusate Sodium 100 Mg Cap PO TID PRN PRN Heparin Sodium (Porcine) 5,000 units 04/19/21 22:00 04/21/21 13:22 Heparin 5,000 Units/Ml Vial SC 5,000 units Q8H HAI Administration IV Miscellaneous Supplies 1 each 04/19/21 16:45 Iv Access IV DIRECTED HAI Losartan Potassium 50 mg 04/19/21 20:00 04/21/21 08:42 Losartan 25 Mg Tab PO 50 mg BID HAI Administration Magnesium Hydroxide 30 ml 04/19/21 18:48 Milk Of Magnesia 30 Ml Cup PO DAILY PRN PRN Polyethylene Glycol 17 gm 10/16/21 18:48 Polyethylene Glycol 3350 17 Gm Packet PO DAILY PRN PRN Constipation Sodium Chloride 0 ml 04/19/21 16:39 04/21/21 08:43 Normal Saline Flush 10 Ml Syr IVP 10 ml PRN PRN Administration Allergies hydrocodone Allergy (Unknown, Verified 04/19/21 15:56) RASH Exam Narrative Exam Narrative: Physical Exam: Gen: Patient of apparent stated age, NAD Head and face: no facial or cranial abnormalities Neck: Supple, no meningismus, no occipital tenderness CV: + S1, S2, RRR, no murmur Resp: CTA B/L Abd: soft, nontender, nondistended Ext: No edema. No clubbing or cyanosis. No bony deformity. Neuro Exam: Language: fluency, naming, repetition, and comprehension intact; Mental Status: AAOx3, current events intact, fund of knowledge intact; Speech: no dysarthria Cranial nerves: Funduscopy: not performed CN II: visual bowden intact; near vision R 20/70-1, L 20/20 CN III, IV, : extraocular movements intact; ?subtle R eye exotropia??, no nystagmus, pupils symmetric and reactive to light CN V: face sensation intact to LT and PP CN VII: no facial asymmetry noted CN VIII: hearing intact bilaterally CN IX, X: palate rises symmetrically CN XI: trapezius/SCM 5/5 bilaterally CN XII: protrudes tongue symmetrically Sensory: intact to LT, PP, vibration, and joint position in all extremities Motor: bulk and tone intact. Fine motor movements intact bilaterally. No pronator drift. Strength 5/5 throughout including the deltoids, biceps, triceps, wrist extensors, hip flexors, knee flexors, knee extensors, ankle flexors, and ankle extensors. Reflexes: 2+ at the biceps, triceps, brachioradialis, patella, and achilles tendons bilaterally; toes down going bilaterally; Coordination: FTN and HTS intact bilaterally Gait: not tested Results Last Vital Signs Temp 97.3 F L 04/21/21 08:08 Pulse 71 04/21/21 08:08 Resp 18 04/21/21 08:08 BP 119/71 04/21/21 08:08 Pulse Ox 94 04/21/21 08:08 Labs Result diagrams: 04/21/21 06:26 10/16/21 16:15 Labs: Laboratory Results - last 24 hr 04/21/21 04/21/21 06:20 06:26 WBC 4.83 RBC 4.50 Hgb 13.8 Hct 41.5 MCV 92.2 MCH 30.7 MCHC 33.3 RDW 13.0 Plt Count 305 MPV 9.5 Hemoglobin A1c 6.0 H
--- NOTE | 2021-04-21 15:37 | NS.NUTBLAN_ITS ---
Date of service: 04/21/21 Time of Service: 15:37 Nutritional Consult ASSESSMENT: Assessment: 70yo female admitted for suspect TIA with history for essential HTN, VILLATORO, osteopenia, CAD, HLD. Meds include atorvastatin, heparin, losartan, polyethylene glycol. Current BMI of 24.4 is c/w normal weight. Pt verbalizes a fair/good appetite and po intake has been the same per tray tallies. Tolerating a heart healthy diet order with some suggestions on the food quality which I will make the kitchen aware. Estimated nutrition needs: 5016-8150 kcals (25-30kcal/kg), 50g protein (.8g/kg), and 7226-1209 mL fluid (1mL/kcal). Pt verbalizes family history of DMII and today?s A1C of 6.0% is i ndicative of pre-diabetes (patient states she is unaware of any recent diagnosis). Diagnosis: Prediabetes as r/t family history AEB current A1c laboratory value. Intervention: Suggest pre-diabetes nutrition education referral once patient is made aware of her recent a1C and is medically cleared. Also suggest vitamin D test as no current lab found and would be at elevated risk with hx of osteopenia and new glucose impairments. Monitoring/evaluation: will check for any new or changes in nutrition-related labs, weight changes or concerns with PO intake. Will approach for nutrition education on pre-diabetes prior to d/c to see if interested to schedule in an outpatient setting. Ned Shah NDTR ? Aircraft Electrical Systems Specialist Time Spent in Nutritional Counseling and Treatment: 0
--- NOTE | 2021-04-21 17:15 | W.PM.DS.N ---
Date of service: 04/21/21 Time of Service: 17:17 DS: Diagnosis Discharge Diagnosis (1) Vision changes: Start date: 04/21/21 Start time: 17:17 Status: Acute Asessment and Plan: Continues to have blurred vision. 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 Continues to have blurred vision to left eye. Neuro recommends Myasthenia gravis blood work will get as out patient. Echo with EF 58% non remarkable echo. F/u with PCP in 1-2 weeks, recommend not driving until vision returns to baseline (2) Carotid stenosis, right: Start date: 04/21/21 Start time: 18:19 Status: Acute Asessment and Plan: MPRESSION: 1. No large vessel occlusion or significant stenosis on the CT angiography of the head. 2. No acute intracranial process. 3. 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 Patient has documented reversal flow in the left vertebral artery on the prior ultrasound from 06/01/2018. 4. Severe stenosis at the origin of the right internal carotid artery. 5. Moderate stenosis at the origin of the left internal carotid artery. Increased atorvastin to 60 mg ASA and outpatient vascular surgery f/u discussed with Dr. Meraz Discharge Plan Disposition Patient Disposition: HOME Condition: Stable Discharge Details Reason For Visit: TIA Admit Date/Time: 04/19/21 18:48 Admit Provider: Jonas Magana Attending Provider: Jonas Magana Primary Care Provider: Eliana Urias Hospital Course Hospital Course: 70 y.o female admitted to [facility] with visual issues. Left eye blurred. unable to see out of. Right eye clear, but when opening both eyes she has blurred vision. MRI negative for stroke. CTA Head neck reveals MPRESSION: 1. No large vessel occlusion or significant stenosis on the CT angiography of the head. 2. No acute intracranial process. 3. 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 Patient has documented reversal flow in the left vertebral artery on the prior ultrasound from 06/01/2018. 4. Severe stenosis at the origin of the right internal carotid artery. 5. Moderate stenosis at the origin of the left internal carotid artery. She is on ASA and increase in statin. She can not tolerate 80 mg due to cramping increased to 60. She will need follow up with outpatient vascular surgery and ophthalmology. She is seeing optometry tomorrow. She should not drive until vision at baseline. Follow up with PCP in 1-2 weeks. Home Meds and New Rx's Prescriptions: New atorvastatin 40 mg Tablet 60 mg PO QPM Qty: 30 RF: 0 Continued losartan-hydrochlorothiazide 100-25 mg tablet 1 tab PO DAILY Qty: 90 RF: 4 ascorbic acid (vitamin C) [Vitamin C] 500 MG tablet 500 mg PO DAILY RF: 0 albuterol sulfate [Ventolin HFA] 90 mcg/actuation HFA aerosol inhaler 2 puff inhalation Q6H PRN (Reason: shortness of breath or wheezing) Qty: 6.7 RF: 7 amlodipine 5 mg tablet 5 mg PO DAILY Qty: 90 RF: 5 aspirin 81 mg tablet,delayed release (DR/EC) 81 mg PO DAILY Qty: 90 RF: 4 Discontinued atorvastatin 40 mg tablet 40 mg PO DAILY Qty: 90 RF: 5 Discharge Instructions Instructions: Low Fat Diet (DC), Carotid Artery Disease (DC), Diplopia (DC), Your Vision (GEN) Additional Instructions: Follow up with ophthalmology we will call and make appt tomorrow and call with time Take 60 mg of atorvastatin not 40 Follow up with vascular surgery, we will call and make appt tomorrow and call with time Follow up with optometry as scheduled. follow up with PCP in 1-2 weeks. Activity:: Activity as Tolerated Equipment/Supplies:: No Equipment Needed Diet:: As Tolerated Discharge Orders Discharge Orders: Discharge Order (Routine); Ordered 04/21/21 Ordered By: India Corley DS: Summary Time Spent with Patient providing and/or coordinating discharge services: Greater than 30 minutes Status at Discharge Functional status at discharge: independent ambulation Overall status at discharge: patient is progressing back to baseline Mental Status: mental status grossly normal Speech and Movement: speech and movement normal Mood: congruent mood Affect: normal affect Exam Narrative Exam Narrative: General: Patient appears appropriate for age, pressured speech good eye contact. Alert and oriented x3. In no acute distress. HEENT: Normocephalic, eyes with pupils equal and reactive to light symmetrically, extraocular movement intact and conjugate in all directions, no nystagmus, sclera anicteric. Oropharynx with moist mucosa and fair dentition. Neck: Supple without JVD. Loud carotid bruit in the right more than left. Back: Slightly stooped posture without CVA tenderness. Lungs: Fair aeration and clear to auscultation percussion. Heart: Regular rate and rhythm with no appreciable murmur or gallop. Abdomen: Obese contour, soft nontender palpation with no palpable hepatosplenomegaly. Extremities: Without clubbing, cyanosis or pitting edema. Peripheral pulses intact. Skin: Normal color, warm and dry. Neuro: cranial nerves II through XII grossly intact except for decreased visual acuity on the left with patient seeing objects but not detail. No focalizing motor deficits. No tremor. Psych: normal mood and no abnormal thought processes. Remote and recent memory grossly intact. Psych Mental Status: mental status grossly normal Speech and Movement: speech and movement normal Mood: congruent mood Affect: normal affect DS: Data Vitals/I&O Vitals and I&O: Vital Signs Temperature 37.0 C 04/21/21 15:44 Temperature Source Tympanic 04/21/21 15:44 Pulse 64 04/21/21 15:44 Pulse Rhythm Regular 04/21/21 09:15 Pulse 74 04/19/21 16:40 Respiratory Rate 16 04/21/21 15:44 Respiratory Effort Non-Labored 04/21/21 09:15 Respiratory Depth Normal 04/21/21 09:15 Respiratory Pattern Normal 04/21/21 09:15 Blood Pressure 128/71 04/21/21 15:44 Blood Pressure Mean 93 04/19/21 19:06 Blood Pressure Position Sitting 04/19/21 19:06 Pulse Oximetry 95 04/21/21 15:44 Oxygen Delivery Method Room Air 04/21/21 15:44 Oxygen Flow Rate 0 04/21/21 15:44 Pain Level 0 04/21/21 15:44 Comment 04/21/21 05:29 Intake & Output 04/20/21 04/21/21 04/21/21 23:59 11:59 23:59 Intake Total 480 / 480 Output Total 800 / 800 Balance -320 / -320 Weight 62.6 kg Intake: Oral 480 / 480 Output: Urine 800 / 800 Other: Urine Color Yellow Urine Appearance Clear Clear Urine Odor Normal Comment She had previously emptied the hat, she is encouraged to call staff and let us empty it for her Per paient she has been voiding all day Voiding Methods Toilet Toilet Data Completed and Pending Completed studies during hospitalization [Text1]: Exam(s) a CT:CT brain & neck CTA Exam(s) CT BRAIN NECK CTA EXAM: CT BRAIN NECK CTA CLINICAL HISTORY: headache, blurry vision, dizziness. TECHNIQUE: Imaging Protocol: Axial CT angiography was performed with multi-slice acquisition and multi-planar and/or 3D reconstructions. CONTRAST MATERIAL: Intravenous: Omnipaque 350 Contrast volume:85 mL COMPARISON: No exams were available for comparison FINDINGS: CT Head W/O and W: Ventricles and Extra axial spaces: Normal in size and morphology for the patient's age. Hemorrhage: None. Cerebral parenchyma: No acute territorial infarct. Midline shift: None. Brainstem/Cerebellum: Normal. Calvarium: Normal. Visualized Paranasal sinuses/Mastoids: Clear. Soft Tissues: Unremarkable. Enhancement: Unremarkable. CTA Neck W: Common Carotid: Right: No dissection, occlusion or significant stenosis. Atherosclerosis. Left: No dissection, occlusion or significant stenosis. Atherosclerosis. External Carotid: Right: No occlusion or significant stenosis. Atherosclerosis at its origin. Left: No occlusion or significant stenosis. Internal Carotid: Right: Atherosclerosis proximally resulting in approximately 75 percent stenosis. No occlusion. Left: Atherosclerosis resulting in approximately 50 percent stenosis. No occlusion. Vertebral Artery: Right: No dissection, occlusion or significant stenosis. Atherosclerosis at its origin. Dominant right vertebral artery. Left: No dissection, occlusion or significant stenosis. Differential degree of enhancement of the vertebral artery along its course. The patient has a history of subclavian steal and flow reversal in the left vertebral artery. (Ultrasound examination of 06/01/2018). Lung Apices: No acute abnormality. Bones: Degenerative changes in the cervical spine. Straightening of the normal cervical spine with mild reversal at C5-C6. Soft Tissues: Normal. Thyroid gland: There is a 0.4 cm hypodense nodule in the left thyroid gland. No associated abnormal findings seen. No follow-up is recommended. CTA Brain W: Internal Carotid Arteries: Petrous: Normal. Cavernous: Atherosclerosis. No stenosis. Cerebral: Normal. Anterior Cerebral Arteries: Right: No aneurysm, occlusion or significant stenosis. Left: No aneurysm, occlusion or significant stenosis. Middle Cerebral Arteries: Right: No aneurysm, occlusion or significant stenosis. Left: No aneurysm, occlusion or significant stenosis. Posterior cerebral Arteries: Right: No aneurysm, occlusion or significant stenosis. Left: No aneurysm, occlusion or significant stenosis. Vertebral Arteries: Right: No aneurysm, occlusion or significant stenosis. Left: No aneurysm, occlusion or significant stenosis. Basilar Artery: No aneurysm, occlusion or significant stenosis. IMPRESSION: 1. No large vessel occlusion or significant stenosis on the CT angiography of the head. 2. No acute intracranial process. 3. 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 Patient has documented reversal flow in the left vertebral artery on the prior ultrasound from 06/01/2018. 4. Severe stenosis at the origin of the right internal carotid artery. 5. Moderate stenosis at the origin of the left internal carotid artery. Exam(s) XR CHEST 2V PA LATERAL EXAM: XR CHEST 2V PA LATERAL CLINICAL HISTORY: dizziness, r/o acute disease TECHNIQUE: 2D digital imaging was performed of the chest. To images were obtained. PA and lateral views were obtained. COMPARISON: CR CHEST 2 VIEWS PA,LAT from 06/01/2016 CR CHEST 2 VIEWS PA,LAT from 06/01/2016 FINDINGS: MEDIASTINUM: Normal. HEART: Normal. PULMONARY VASCULATURE: Normal. LUNGS: There are increased opacities in the lung bases, right greater than left. No focal consolidating infiltrate. PLEURAL SPACE: No pleural effusion or pneumothorax. BONE:Within normal limits for the patient's age. OTHER FINDINGS:Normal. IMPRESSION: Increased opacities in the lung bases. This may reflect infection or inflammation. Please correlate clinically. Exam(s) PROCEDURE INFORMATION: Exam: CT Angiography Head With Contrast, Arteriography Exam date and time: 04/19/2021 4:14 PM Age: 70 years old Clinical indication: Other: Headache, blurry vision, dizziness TECHNIQUE: Imaging protocol: Computed tomography angiography of the head with contrast. Exam focused on the arteries. 3D rendering (Not supervised by radiologist): MIP and/or 3D reconstructed images were created by the technologist. Contrast material: OMNIPAQUE 350; Contrast volume: 85 ml; Contrast route: INTRAVENOUS (IV); COMPARISON: CR XR cervical spine comp 4-5V 03/13/2019 2:38 PM FINDINGS: ANTERIOR CIRCULATION: Right internal carotid artery: Mild calcified plaque of the right internal carotid artery, without significant stenosis. No aneurysm formation. Right middle cerebral artery: Unremarkable. No occlusion or significant stenosis. No aneurysm. Right anterior cerebral artery: Unremarkable. No occlusion or significant stenosis. No aneurysm. Left internal carotid artery: Mild calcified plaque of the left internal carotid artery, without significant stenosis. No aneurysm formation. Left middle cerebral artery: Unremarkable. No occlusion or significant stenosis. No aneurysm. Left anterior cerebral artery: Unremarkable. No occlusion or significant stenosis. No aneurysm. POSTERIOR CIRCULATION: Right vertebral artery: Unremarkable. No occlusion or significant stenosis. No aneurysm. Left vertebral artery: Unremarkable. No occlusion or significant stenosis. No aneurysm. Basilar artery: Unremarkable. No occlusion or significant stenosis. No aneurysm. Right posterior cerebral artery: Unremarkable. No occlusion or significant stenosis. No aneurysm. Left posterior cerebral artery: Unremarkable. No occlusion or significant stenosis. No aneurysm. Veins: No venous sinus thrombosis is appreciated. Brain: No CT evidence of acute transcortical infarction. No acute intracranial hemorrhage, edema, midline shift, or mass effect. Cerebral ventricles: No ventriculomegaly. Bones/joints: Unremarkable. No acute fracture. Auditory system: Note is made of dehiscence at the left jugular bulb, protruding into the left middle ear. Soft tissues: Unremarkable. IMPRESSION: 1. No anterior large vessel occlusion is appreciated. Mild intracranial arteriosclerosis. 2. Findings consistent with dehiscence of the left jugular bulb protruding into the left middle ear. CEREBRAL PARENCHYMA: There is no evidence of intracranial hemorrhage, mass effect, or shift of midline structures. There are no extra-axial fluid collections. Ventricles are not enlarged or shifted. There is no significant focal signal abnormality in the cerebellar hemispheres nor within the sandeep, midbrain, and thalami. There are few small tiny foci of FLAIR bright signal abnormality in the right Emerita and supraventricular white matter consistent with chronic small vessel disease. There is no significant focal signal abnormality evident on diffusion imaging to suggest acute ischemic event. PITUITARY GLAND: No mass nor parasellar abnormality. No obvious abnormality in the cavernous sinuses. FLOW VOIDS: The expected flow void are noted. No evidence of obvious aneurysm nor obvious vascular malformation. PARANASAL SINUSES: The visualized paranasal sinuses appear unremarkable. No obvious finding ORBITS: No obvious findings. IMPRESSION: No significant intracranial findings on this noninfused MRI scan of the brain. Labs on day of discharge: Labs from last 24 hours 04/21/21 04/21/21 06:26 06:20 WBC 4.83 RBC 4.50 Hgb 13.8 Hct 41.5 MCV 92.2 MCH 30.7 MCHC 33.3 RDW 13.0 Plt Count 305 MPV 9.5 Hemoglobin A1c 6.0 H PFSH Medical History Breast lump Breast lump Coronary arteriosclerosis Coronary arteriosclerosis (11/16/13) stent placed RCA 10/16 Essential hypertension Essential hypertension Exercise-induced asthma External carotid artery stenosis (~06/03/18) Fracture of head of radius (09/29/14) Fracture of metatarsal bone Hearing problem Hyperlipidemia Hyperlipidemia (09/11/08) borderline Low back pain (01/13/16) Non-alcoholic fatty liver disease Non-alcoholic fatty liver disease Osteopenia Osteopenia (06/03/04) T= -1.7; -0.8; -1.4 Palpitations Palpitations (12/19/13) Recurrent falls (04/14/16) Sebaceous cyst Sensorineural deafness Sensorineural hearing loss, bilateral (05/14/14) Fit with bilateral hearing aids, 05/14/14; 02/13/2020 Sinusitis Subclavian steal syndrome BP always on Right side NO MARSH if bypass needed Surgical History section x 2 Cholecystectomy (~2000) endometrial biopsy (~2003) negative History of section History of unilateral oophorectomy Hysterectomy, Laproscopic (~2006) Oophrectomy, unilateral (~1994) ovarian cyst Status post cholecystectomy Status post laparoscopic hysterectomy Stent placement 10/2013 Family History Mother Diabetes Essential hypertension Personal history of malignant neoplasm Breast Heart disease Hyperlipidemia Stroke Father , age 75 Alcohol abuse Chronic obstructive lung disease Sister Diabetes Essential hypertension Hyperlipidemia Chronic obstructive lung disease Breast cancer Sister Essential hypertension Asthma Breast cancer Brother , age 58 Heart disease [place] Daughter Breast cancer Brother Hyperlipidemia Asthma Hypertension Sister Asthma Son Diabetes Social History Smoking/Tobacco Use Status: Former Tobacco Use tobacco type: cigarettes Quit Date: 07/05/85 Tobacco: How many years used: 15 Second Hand Exposure: No Smoking risk assessment performed?: Yes Alcohol Intake: current Alcohol Intake frequency: holidays/special occasions only Alcohol type: wine Drug use: Never Substance use type: does not use Caregiver/Support person: No Household members: family Housing: house Communication Needs: None Do you need help understanding health information?: Never Pets and animals: No Sexually active: No Do you think of yourself as: straight/heterosexual What is your relationship status?: How often do you talk on the phone with friends or family?: three or more times per week How often do you get together with friends or relatives?: three or more times per week How often do you attend gnosticism or congregational services?: 4 or more times per year Do you belong to any clubs or organized social groups?: no Panel score (0-1 are the most socially isolated patients): 2 What type of physical activity do you participate in: bicycling Duration: decline to answer Frequency: 1-2 times per week Niurka/Gnosticist: Protestant Special niurka needs: No Seatbelt use: always Helmet use: Yes Helmet use: always Drive intox or ride w/intox meals on wheels driver: No Do you feel safe at home: Yes Do you feel safe in your relationship?: Yes
--- NOTE | 2021-04-21 20:19 | PDOC.CMDIS ---
- If Service Date Differs Date of service: 04/21/21 Time of Service: 20:19 LACE Index Scoring Tool - Questions: Length of Stay (in days): 2 Acuity (Admit via E.D.?): Yes E.D. Visits: 1 - Answers: Total Score: 6 Risk of Readmission: Low Risk Care Management Discharge Reason for Hospitalization: TIA Discharge Plan: Kisha will return home today with no new services. Her family will drive her home via private vehicle. She will follow up with her PCP and discharge plan of care. She is happy to be going home. Patient/Family Education Needs: Review discharge instructions, discussion of self care needs including ask me three.
== END 2021-04-21 19:20 | disposition home or self-care (01) ==
LOC: ER 19:08 → MS 20:02
PROVIDERS: Family Medicine; Nurse Practitioner Family; Admitting Provider Family Medicine; Emergency Provider Physician Assistant; PCP Family Medicine; Visit Provider Family Medicine
DX: G45.8 Other transient cerebral ischemic attacks and related syndromes (principal); H53.8 Other visual disturbances; I10 Essential (primary) hypertension; I65.23 Occlusion and stenosis of bilateral carotid arteries; R51.9 Headache, unspecified; J18.9 Pneumonia, unspecified organism; I25.10 Atherosclerotic heart disease of native coronary artery without angina pectoris; E78.5 Hyperlipidemia, unspecified; Z95.5 Presence of coronary angioplasty implant and graft; R42 Dizziness and giddiness; K76.0 Fatty (change of) liver, not elsewhere classified
CPT/HCPCS: 36415; 70496; 70498; 80053; 80061; 85027; 85652; 87635; 93005; 96360; 96361; 99215; 99285; 70551; 71046; 83036; 83735; 84484; 85025; 85610; 93010; 93306; 99217; 99220; 99225; G0378; J0696; J1644; J3490

== ENCOUNTER → 2021-04-21 07:37 | Outpatient (BNVA) | payer MEDICARE, SELFPAY | PROVIDERS: PCP Family Medicine; Referring Provider Family Medicine; Visit Provider Psychiatry & Neurology Neurology | DX: R69 Illness, unspecified (principal) ==

== ENCOUNTER 2021-04-23 01:38 | Outpatient (CLI) | payer MEDICARE, SELFPAY | END 2021-04-23 01:39 | disposition home or self-care (01) | LOC: LOS 01:39 | PROVIDERS: Nurse Practitioner Family; PCP Family Medicine; Visit Provider Psychiatry & Neurology Neurology | DX: H53.8 Other visual disturbances (principal) | CPT/HCPCS: 36415; 83519 ==

== ENCOUNTER 2021-07-31 02:01 | Outpatient (CLI) | payer MEDICARE, SELFPAY ==
--- NOTE | 2021-07-31 08:00 | DI.MAMMO_ITS ---
Exam(s) MAMMO DIAGNOSTIC UNI EXAM: MAMMO DIAGNOSTIC UNI CLINICAL HISTORY: 3-6 MO F/U,F/U ABNL MAMMO, R92.8,Z09. TECHNIQUE: Craniocaudal and mediolateral oblique Full Field Digital Mammography views of the left br east with Computer Aided Diagnosis followed by Tomosynthesis. COMPARISON: Comparison is made with prior examinations. FINDINGS: Mammography/Tomosynthesis: Masses/Architectural Distortion: None seen. Microcalcifictions: No suspicious pleomorphic-type are seen. Skin Thickening/Nipple Retraction: None. IMPRESSION: 1. No evidence of malignancy is noted. 2. Unless there is more urgent need, follow-up screening mammography is recommended, as per [place] [employer] guidelines. 3. The findings were discussed with the patient on the date of the examination. BI-RADS Category 1 - Negative Breast Density - Category C - Heterogeneously dense Breast density Category C or D implies that the patient has dense breast tissue. Dense breast tissue can make it harder to find cancer on a mammogram. Dense breast tissue is also associated with an incr eased risk of breast cancer. This information about the result of the mammogram report was provided to the patient to raise their awareness. Use this report when you speak with the patient about their risks for breast cancer, which includes their family history. At that time, you may recommend additional screening tests (Ultrasoun d or MRI) as these tests may add significant information. A negative radiographic report should not delay biopsy if a dominant or clinically suspicious mass is present. Up to ten percent of cancers are not identified on mammography. A negative report may reinforce clinical impression. Adenosis and dense breasts may obscure an underlying neoplasm. False positive reports average 6 to 10%. Patient will receive a letter notifying them of these results.
== END 2021-07-31 02:21 ==
PROVIDERS: PCP Family Medicine; Visit Provider Family Medicine
DX: R92.8 Other abnormal and inconclusive findings on diagnostic imaging of breast (principal); N64.59 Other signs and symptoms in breast
CPT/HCPCS: 77061; 77065; G0279

== ENCOUNTER 2021-12-29 03:48 | Outpatient (CLI) | payer MEDICARE, SELFPAY ==
[2021-12-29 11:59] LABS: Hemoglobin A1C 6.1 % (<5.7)
[2021-12-29 12:33] LABS: ALT 30 U/L (14-59); AST 12 U/L (15-37); Albumin 3.6 g/dL (3.4-5.0); Alkaline Phosphatase 74 U/L (46-116); Anion Gap 5.7 mmol/L (3-11); BUN 9 mg/dL (7-18); Bilirubin, Total 0.5 mg/dL (0.2-1.0); CO2 29.3 mmol/L (21.0-32.0); CREATININE 0.7 mg/dL (0.55-1.02); Calcium 8.9 mg/dL (8.5-10.1); Chloride 103 mmol/L (98-107); Glucose 90 mg/dL (74-106); Sodium 138 mmol/L (136-145); Total Protein 6.8 g/dL (6.4-8.2)
[2021-12-30 11:37] LABS: Lyme Ab w Rflx to Lyme Confirm Negative (Negative)
[2021-12-31 18:25] LABS: Anaplasma phagocytophilum Negative (Negative); B. miyamotoi PCR Negative (Negative); Babesia divergens/MO-1 Negative (Negative); Babesia duncani Negative (Negative); Babesia microti Negative (Negative); Ehrlichia chaffeensis Negative (Negative); Ehrlichia ewingii/canis Negative (Negative); Ehrlichia muris eauclairensis Negative (Negative)
== END 2021-12-29 03:49 | disposition home or self-care (01) ==
PROVIDERS: Internal Medicine Cardiovascular Disease; PCP Family Medicine; Visit Provider Family Medicine
DX: E11.9 Type 2 diabetes mellitus without complications (principal); K76.0 Fatty (change of) liver, not elsewhere classified; W57.XXXA Bitten or stung by nonvenomous insect and other nonvenomous arthropods, initial encounter; T14.8XXA Other injury of unspecified body region, initial encounter; I10 Essential (primary) hypertension
CPT/HCPCS: 36415; 80053; 87798; 83036; 86618

== ENCOUNTER 2022-02-16 08:29 | Outpatient (CLI) | payer MEDICARE, SELFPAY | END 2022-02-16 08:30 | disposition home or self-care (01) | LOC: DI.CARD 08:30 | PROVIDERS: PCP Family Medicine; Visit Provider Internal Medicine Cardiovascular Disease | DX: R69 Illness, unspecified (principal) | CPT/HCPCS: 93010 ==

== ENCOUNTER → 2022-02-16 09:34 | Outpatient (BNVA) | payer MEDICARE, SELFPAY | PROVIDERS: PCP Family Medicine; Referring Provider Family Medicine; Visit Provider Internal Medicine Cardiovascular Disease | DX: I25.810 Atherosclerosis of coronary artery bypass graft(s) without angina pectoris (principal); G54.0 Brachial plexus disorders; Z95.5 Presence of coronary angioplasty implant and graft; I10 Essential (primary) hypertension | CPT/HCPCS: 99214 ==

== ENCOUNTER → 2022-02-27 00:01 | Outpatient (CLI) | payer MEDICARE, SELFPAY ==
--- NOTE | 2022-02-27 07:33 | DI.DEXA_ITS ---
Exam(s) XR DEXA BONE DENSITY W/WO HEATHER EXAM: XR DEXA BONE DENSITY W/WO HEATHER CLINICAL HISTORY: osteoporosis,M81.0 TECHNIQUE: Routine DEXA evaluation of the lumbar spine, hip, or forearm. COMPARISON: CR LUMBAR SPINE AP, LAT from 02/21/2013. Also compared with prior DEXA scan of 2004 FINDINGS: Performed on a [employer] unit. Lateral image: No compression fracture evident. Lumbar Spine total T-score: -2.4. Prior 2004 reading was -1.4 Hip total T-score:-1.6. Prior 2004 reading was -0.8 Independent reading at the level of the femoral neck yields at T-score of -2.4. Forearm total T-score: -3.1 IMPRESSION: Bone mineral density measures in the osteopenia bordering on osteoporosis range. Fracture risk is hig h Note: Any spine fracture indicates 5x risk for subsequent spine fracture and 2x risk for subsequent h ip fracture. World Health Organization criteria for BMD interpretation classify patients: Normal...... T- Score at or above -1.0 Osteopenic... T- Score between -1.0 and -2.5 Osteoporosis... T-Score at or below -2.5
== END ==
PROVIDERS: PCP Family Medicine; Visit Provider Family Medicine
DX: M81.0 Age-related osteoporosis without current pathological fracture (principal); M85.88 Other specified disorders of bone density and structure, other site
CPT/HCPCS: 71250; 77080

== ENCOUNTER → 2022-02-27 00:37 | Outpatient (CLI) | payer MEDICARE, SELFPAY ==
--- NOTE | 2022-02-27 12:15 | DI.CT_ITS ---
Exam(s) CT CHEST WO EXAM: CT CHEST WO CLINICAL HISTORY: INJURY THORACIC DUCT,CAD,PREOP,EVAL FOR CHANGE,CONTINUED LEAK OR OTHER FIND. TECHNIQUE: Multi planar reconstructions were performed. CONTRAST MATERIAL: None COMPARISON: CR,XR XR CHEST 2V PA LATERAL from 04/19/2021 FINDINGS: CHEST: In the lower left side of the neck there is a 3.4 by 3.7 by 5.0 cm (craniocaudal) egg-shaped fluid co llection located just above and posterior to a horizontally orientated 4.2 cm length graft. This col lection is immediately posterior to the sternocleidomastoid muscle (which is elevated anteriorly by t his egg-shaped fluid collection) and just lateral to the left thyroid lobe in the immediate supraclav icular region. This is probably a lymph collection, given its density measurements and location. There are no similar findings in the opposite-right side of the neck. No upper mediastinal nor sub pleural fluid collections in either lung apex. LUNGS: There is a noncalcified subpleural 5 millimeter x 5 millimeter nodule in the right upper lobe (series 2/image 31). Another similar size noncalcified nodule is noted slightly below this level and laterally. No other significant focal right lung findings nor pleural effusion. In the left lung there are mild benign-appearing increased markings in the lingular segment. There i s also a tiny 1 millimeter noncalcified nodule in the anterior aspect of the left upper lobe (series 2/image 33). No pleural effusion. No significant focal findings in the trachea and mainstem bronchi . MEDIASTINUM: There is no obvious hilar nor mediastinal adenopathy. No obvious axillary adenopathy. Thyroid gland exhibits normal size. CARDIAC: Heart size is normal. There is no pericardial effusion.Caliber of the thoracic aorta is wit hin normal limits. VISUALIZED UPPER ABDOMEN:No adrenal masses. No splenomegaly. Gallbladder surgically absent. 3 mill imeter hypodensity right hepatic lobe exhibits benign appearance and is probably a small cyst or ruiz ngioma. Similar finding is also noted inferiorly in the right hepatic lobe. OSSEOUS: No significant osseous lesions.Slight loss of height at inferior endplate of T10, not appear ing acute.. IMPRESSION: 1. There is an egg-shaped cystic mass in the lower left neck-supraclavicular region located above and adjacent to the surgical graft in this region. The appearance is most probably that of a lymph wilder ection. Cephalo caudal measurement is 5 cm, with other measurements being 3.4 cm AP and 3.7 cm wide. Internal contents is uniformly thick fluid. No obvious adenopathy evident. 2. There are 2 small 5 millimeter noncalcified nodules in the right lung which will require appropria te follow-up. There is a tiny 1 millimeter noncalcified nodule in the left lung anterior aspect left upper lobe. 3. No pleural effusions on either side. No intrathoracic adenopathy. Benign-appearing hypodensities in the liver measuring less than 1 millimeter probably hemangiomas or small cysts. RADIATION DOSE DELIVERED: 487.78mGy.cm Total DLP DATA REPOSITORY: All CT scans at this facility are submitted to the National Radiology Data Registry (NRDR) Dose Index Registry (DIR) with the [employer] ([employer]). RADIATION OPTIMIZATION: All CT scans at this facility use at least one of these dose optimization te chniques: automated exposure control; mA and/or kV adjustment per patient size (includes targeted exa ms where dose is matched to clinical indication); or iterative reconstruction.
== END ==
PROVIDERS: PCP Family Medicine; Visit Provider Neurological Surgery
DX: R91.1 Solitary pulmonary nodule (principal)
CPT/HCPCS: 71250

== ENCOUNTER 2022-06-01 15:16 | Outpatient (REF) | payer MEDICARE, SELFPAY ==
--- NOTE | 2022-06-03 09:45 | SKI_PTH ---
PATIENT: Kisha Ray LOC: N U#:[id number] AGE/SX: 71/F ROOM: RE06/01/[address]: Eliana Urias MD, DC : 1950 BED: DIS: 06/01/2022 SPEC #: [id number] RECD: 06/03/22 19:35 STATUS: SHREE REQ #: [id number] RODRIGUEZ: 06/03/22 09:[address]: Eliana Urias DEPT: Surgical Specimen RECD BY: Bee Dodge Tissues: 1 - SKIN BIOPSY(SHAVE/PUNCH) Procedures: SPECIAL STAIN 2 SKIN LEVEL 4 Comments: [id number] (cc TO CAMILA SERRANO IN ERROR, OFFICE NOTIFIED)
== END 2022-06-01 15:17 | disposition home or self-care (01) ==
LOC: LBN 15:16
PROVIDERS: PCP Family Medicine; Visit Provider Family Medicine
DX: L30.9 Dermatitis, unspecified (principal)
CPT/HCPCS: 88313

== ENCOUNTER → 2022-06-10 12:33 | Outpatient (CLI) | payer MEDICARE, SELFPAY ==
--- NOTE | 2022-06-10 11:12 | DI.RAD_ITS ---
Exam(s) XR KNEE RT 3V AP,LAT,RICARDO EXAM: XR KNEE RT 3V AP,LAT,RICARDO CLINICAL HISTORY: r knee pain,m25.561 TECHNIQUE: COMPARISON: No exams were available for comparison FINDINGS: Three views were obtained. There appears to be moderate narrowing of the medial tibiofemoral cartila ginous joint space, presumably on a degenerative basis. No other bony or soft tissue abnormality see n. IMPRESSION: RADIATION DOSE DELIVERED: Total DLP
== END ==
PROVIDERS: PCP Family Medicine; Visit Provider Family Medicine
DX: M25.561 Pain in right knee (principal); M25.861 Other specified joint disorders, right knee
CPT/HCPCS: 73562

== ENCOUNTER 2022-09-03 03:18 | Outpatient (CLI) | payer MEDICARE, SELFPAY ==
[2022-09-03 11:08] LABS: CREATININE 0.7 mg/dL (0.55-1.02); Estimated GFR 92.41 (mL/min/1.73m2)
== END 2022-09-03 03:19 | disposition home or self-care (01) ==
PROVIDERS: PCP Family Medicine; Visit Provider Thoracic Surgery (Cardiothoracic Vascular Surgery)
DX: D3A.090 Benign carcinoid tumor of the bronchus and lung (principal); Z90.2 Acquired absence of lung [part of]
CPT/HCPCS: 36415; 82565

== ENCOUNTER 2022-09-17 12:47 | Outpatient (CLI) | payer MEDICARE, SELFPAY ==
--- NOTE | 2022-09-17 12:52 | DI.RAD_ITS ---
Exam(s) XR RIBS RT W PA LAT CHEST CLINICAL HISTORY: r rib painaround T8 R07.81 PLEURODYNIA. COMPARISON: CR,XR XR CHEST 2V PA LATERAL from 04/19/[address] CHEST WO from 02/27/2022 TECHNIQUE:: PA and lateral views of the chest and four views of the right ribs were performed. FINDINGS: LUNGS:Clear. No pleural abnormality seen. HEART: Normal. MEDIASTINUM: Normal. BONES: No displaced rib fracture is seen. No bony destructive lesion is seen. OTHER FINDINGS: Stable line now noted near the right 8th rib. Surgical clips at left apex. IMPRESSION: 1. Unremarkable radiographic appearance of the right ribs. 2. No acute pulmonary findings.
== END 2022-09-17 13:07 ==
LOC: DI 12:48
PROVIDERS: PCP Family Medicine; Visit Provider Family Medicine
DX: R07.81 Pleurodynia (principal)
CPT/HCPCS: 71046; 71100

== ENCOUNTER 2022-10-26 20:55 | Outpatient (REF) | payer MEDICARE, SELFPAY ==
[2022-10-26 21:43] LABS: Abs Immature Grans 0.01 10^3/uL (0.0-0.06); Absolute Basophil Count 0.05 10^3/uL (0.0-0.2); Absolute Monocyte Count 0.49 10^3/uL (0.1-0.8); Absolute Neutrophil Count 2.79 10^3/uL (1.2-6.7); Eosinophils % 4.1; HCT 40.8 % (36.0-46.0); HGB 13.7 g/dL (11.2-15.7); Immature Grans % 0.2; Lymphocytes % 26.9; MCH 30.2 pg (27.0-33.0); MCHC 33.6 % (32.0-36.0); MCV 90 fL (80-95); MPV 10.4 fL (8.0-11.0); Monocytes % 10.1; Neutrophils % 57.7; Platelet Count 343 10^3/uL (130-400); RBC 4.54 10^6/uL (3.93-5.22); RDW 12.9 % (11.7-14.6); RDW-SD 42.7 fL; WBC 4.84 10^3/uL (4.4-10.8)
[2022-10-26 21:54] LABS: ALT 37 U/L (14-59); AST 11 U/L (15-37); Albumin 4.2 g/dL (3.4-5.0); Alkaline Phosphatase 103 U/L (46-116); Anion Gap 9.9 mmol/L (3-11); BUN 14 mg/dL (7-18); Bilirubin, Total 0.2 mg/dL (0.2-1.0); CO2 27.1 mmol/L (21.0-32.0); CREATININE 0.7 mg/dL (0.55-1.02); Calcium 9.5 mg/dL (8.5-10.1); Chloride 103 mmol/L (98-107); Estimated GFR 91.83 (mL/min/1.73m2); Glucose 94 mg/dL (74-106); Potassium 4.2 mmol/L (3.5-5.1); Sodium 140 mmol/L (136-145); Total Protein 7.5 g/dL (6.4-8.2)
== END 2022-10-26 20:56 | disposition home or self-care (01) ==
LOC: LBN 20:55
PROVIDERS: PCP Family Medicine; Visit Provider Physician Assistant
DX: L98.8 Other specified disorders of the skin and subcutaneous tissue (principal); L29.8 Other pruritus
CPT/HCPCS: 80053; 85025

== ENCOUNTER 2022-10-30 07:22 | Emergency (ER) | payer MEDICARE, SELFPAY ==
[2022-10-30 07:25] VITALS: BP 177/75; PULSE 72; RESP 16; TEMP 36.8; O2SAT 99
--- NOTE | 2022-10-30 07:41 | W.ED.GENAD ---
Discharge Plan Discharge Details Chief Complaint: RashLesion Primary Care Provider: lEiana Urias ED Provider: Russ Orr Home Meds and New Rx's Prescriptions: No Action calcium carbonate-vitamin D3 [Calcium 600 with Vitamin D3] 600 mg-12.5 mcg (500 unit) capsule See Rx Instructions PO .every other day Rx Instructions: 1 capsule daily orally EVERY OTHER DAY; sg-xr-nmob-FA-Ca carb-vit K 18 mg iron-400 mcg-500 mg tablet 1 tab PO DAILY cholecalciferol (vitamin D3) 25 mcg (1,000 unit) capsule 25 mcg PO DAILY amlodipine 5 mg tablet 5 mg PO DAILY Qty: 90 5RF atorvastatin 40 mg tablet 40 mg PO DAILY Qty: 90 5RF atorvastatin 20 mg tablet 20 mg PO DAILY Qty: 90 4RF prednisone 20 mg tablet 20 mg PO BID Qty: 10 0RF albuterol sulfate [Ventolin HFA] 90 mcg/actuation HFA aerosol inhaler 2 puff inhalation Q6H PRN (Reason: shortness of breath or wheezing) Qty: 6.7 7RF aspirin 81 mg tablet,delayed release (DR/EC) 81 mg PO DAILY Qty: 90 4RF triamcinolone acetonide 0.1 % cream 1 applic topical BID Qty: 80 0RF Rx Instructions: apply to foot Medical Decision Making 72-year-old lady with persistent rash. She does state that she had a biopsy approximately a year ago that was lupus-like. At this time, I have asked her to trial some Benadryl instead of the Claritin. She states that the Benadryl will make you sleepy but since she has not slept in couple days it should not be an issue. I have asked her to follow-up with her primary care doctor for further evaluation on Wednesday. HPI General Date/Time Provider Initiated Documentation: 10/30/22 07:32. HPI Narrative: 72-year-old lady presents to the emergency room for evaluation of persistent rash. She was seen at the urgent care on October 26 and treated with a prednisone taper. Shortly after starting the prednisone she developed a facial rash therefore the prednisone was stopped. She states that the rash to her forearms were originally on the dorsal aspect. The rash has cleared on the dorsal aspect and migrated to the volar aspect. Mild pruritus. No fevers no chills. No nausea no vomiting. No mucosal involvement. No headaches. Review of the urgent care chart reveals that the only change in the patient's ADLs have been a change in the fabric softener. Related Data Home Medications Medication Instructions Recorded Confirmed albuterol sulfate 90 mcg/actuation 2 puff inhalation Q6H PRN 07/10/20 09/17/22 aerosol inhaler (Ventolin HFA) shortness of breath or wheezing #6.7 grams aspirin 81 mg tablet,delayed 81 mg PO DAILY #90 tab-caps 07/10/20 09/17/22 release atorvastatin 20 mg tablet 20 mg PO DAILY #90 tabs 10/06/21 09/17/22 atorvastatin 40 mg tablet 40 mg PO DAILY #90 tabs 10/06/21 09/17/22 calcium carbonate 600 mg-vitamin See Rx Instructions PO .every 12/23/21 09/17/22 D3 12.5 mcg (500 unit) capsule other day (Calcium 600 with Vitamin D3) amlodipine 5 mg tablet 5 mg PO DAILY #90 tabs 06/01/22 09/17/22 cholecalciferol (vitamin D3) 25 25 mcg PO DAILY 06/01/22 09/17/22 mcg (1,000 unit) capsule utoztlbc-fvl-hgej-FA-Ca carb-vit K 1 tab PO DAILY 06/01/22 09/17/22 18 mg iron-400 mcg-500 mg tablet prednisone 20 mg tablet 20 mg PO BID #10 tabs 10/26/22 10/26/22 triamcinolone acetonide 0.1 % 1 applic topical BID #80 grams 10/29/22 topical cream Previous Rx's Medication Instructions Recorded albuterol sulfate 90 mcg/actuation 2 puff inhalation Q6H PRN 07/10/20 aerosol inhaler (Ventolin HFA) shortness of breath or wheezing #6.7 grams aspirin 81 mg tablet,delayed 81 mg PO DAILY #90 tab-caps 07/10/20 release atorvastatin 20 mg tablet 20 mg PO DAILY #90 tabs 10/06/21 atorvastatin 40 mg tablet 40 mg PO DAILY #90 tabs 10/06/21 amlodipine 5 mg tablet 5 mg PO DAILY #90 tabs 06/01/22 prednisone 20 mg tablet 20 mg PO BID #10 tabs 10/26/22 triamcinolone acetonide 0.1 % 1 applic topical BID #80 grams 10/29/22 topical cream Allergies Allergy/AdvReac Type Severity Reaction Status Date / Time hydrocodone Allergy Unknown RASH Verified 10/26/22 16:29 chlorhexidine Allergy Burning Verified 10/26/22 16:29 skin General Stated Complaint: RashLesion DEANNA: 4 Review of Systems Narrative: 10 point review of system is negative unless otherwise specified in HPI PFSH All Active Problems (Updated 10/26/22 @ 16:54 by SIERRA Lacey) Generalized pruritus (Acute) Pruritus, genital (Acute) Rib pain on right side (Acute) Impacted cerumen, right ear (Acute) Right knee pain (Acute) Skin lesion (Acute) ? 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; s/p partial lobectomy RLL, repeat CT Scan in 6 m Conductive hearing loss, external ear (Acute) Impacted cerumen, left ear (Acute) Cough (Acute) Tick bite (Acute) Subclavian steal syndrome of left subclavian artery (Acute) Carotid stenosis, right (Acute) Vision changes (Acute) Abnormal mammogram (Acute) Dizziness (Acute) Tachycardia (Acute) Left arm numbness (Acute) Hip pain, right (Acute) DJD (degenerative joint disease), cervical (Acute) TOS (thoracic outlet syndrome) (Acute) Scalenus anticus syndrome (Acute) Annual physical exam (Acute) Neck pain (Acute) Exercise-induced asthma (Chronic) Low back pain (Chronic 01/13/16) Subclavian steal syndrome (Chronic) BP always on Right side NO MARSH if bypass needed Coronary arteriosclerosis (Chronic 11/16/13) stent placed RCA 10/16 Essential hypertension (Chronic) Hearing problem (Chronic) Hyperlipidemia (Chronic 09/11/08) borderline Non-alcoholic fatty liver disease (Chronic) Osteopenia (Chronic 06/03/04) T= -1.7; -0.8; -1.4 Medical History Asymmetrical sensorineural hearing loss Breast lump Breast lump Coronary arteriosclerosis Essential hypertension External carotid artery stenosis (~06/03/18) Fracture of head of radius (09/29/14) Fracture of metatarsal bone Hyperlipidemia Non-alcoholic fatty liver disease Osteopenia Palpitations Palpitations (12/19/13) Recurrent falls (04/14/16) Sebaceous cyst Sinusitis Surgical History section x 2 Cholecystectomy (~2000) endometrial biopsy (~2003) negative History of section History of unilateral oophorectomy Hysterectomy, Laproscopic (~2006) Oophrectomy, unilateral (~1994) ovarian cyst Status post cholecystectomy Status post laparoscopic hysterectomy Stent placement 10/2013 Family History Mother Diabetes Essential hypertension Personal history of malignant neoplasm Breast Heart disease Hyperlipidemia Stroke Father , age 75 Alcohol abuse Chronic obstructive lung disease Sister Diabetes Essential hypertension Hyperlipidemia Chronic obstructive lung disease Breast cancer Sister Essential hypertension Asthma Breast cancer Brother , age 58 Heart disease [place] Daughter Breast cancer Brother Hyperlipidemia Asthma Hypertension Sister Asthma Son Diabetes Social History Smoking/Tobacco Use Status: Former Tobacco Use (Quit 35 years ago) tobacco type: cigarettes Quit Date: 07/05/85 Tobacco: How many years used: 15 Second Hand Exposure: Yes Smoking risk assessment performed?: Yes Alcohol Intake: current Alcohol Intake frequency: holidays/special occasions only Alcohol type: wine Drug use: Never Substance use type: does not use Caregiver/Support person: No Household members: other Details: Sister Housing: house Communication Needs: None Do you need help understanding health information?: Never Pets and animals: No Sexually active: No Do you think of yourself as: straight/heterosexual Current gender identity: female What is your relationship status?: How often do you talk on the phone with friends or family?: three or more times per week How often do you get together with friends or relatives?: three or more times per week How often do you attend methodist or adventist services?: decline to answer Do you belong to any clubs or organized social groups?: no Panel score (0-1 are the most socially isolated patients): 1 What type of physical activity do you participate in: walking, bicycling and other Details: Riding Duration: 15-30 minutes/day Frequency: 1-2 times per week Niurka/Muslim: Catholic Special niurka needs: No Seatbelt use: always Helmet use: Yes Helmet use: always Drive intox or ride w/intox garbage collector driver: No Do you feel safe at home: Yes Do you feel safe in your relationship?: Yes Exam Narrative Exam Narrative: General: A,A Ox3, Calm, no apparent distress, well developed, pleasant and cooperative Head Size/Shape: normocephalic, atraumatic Eyes Pupils: PERRLA Extraocular Mobility: intact and symmetrical Conjunctiva: non-injected, anicteric, no discharge Ears, Nose, Throat Nares: patent bilaterally Oral Cavity: moist Neck: supple Respiratory Respiratory Effort: no dyspnea Auscultation: clear to auscultation bilaterally, normal breath sounds, no wheezing, no rales/crackles Cardiovascular Heart Auscultation: regular rate and rhythm Abdomen Inspection and Palpation: soft, non-tender, non-distended, no hepatosplenomegaly Musculoskeletal System Joints, Bones, and Muscles: no deformities Extremities: warm and well-perfused, no cyanosis, capillary refill <2 seconds Skin Skin Inspection: Mild erythema of the cheeks, volar aspect of bilateral upper extremities wit urticaric rash Neurological Motor: normal tone, normal strength, moving all extremities equally Psychiatric: good insight, good judgement, normal mood and affect Course Vital Signs Vital signs: Vital Signs Temperature 36.8 C 10/30/22 07:25 Pulse 72 10/30/22 07:25 Respiratory Rate 16 10/30/22 07:25 Blood Pressure 177/75 H 10/30/22 07:25 Pulse Oximetry 99 10/30/22 07:25 Temperature 36.8 C 10/30/22 07:25 Temperature Source Skin 10/30/22 07:25 Pulse 72 10/30/22 07:25 Respiratory Rate 16 10/30/22 07:25 Blood Pressure 177/75 H 10/30/22 07:25 Blood Pressure Position Sitting 10/30/22 07:25 Pulse Oximetry 99 10/30/22 07:25 Oxygen Delivery Method Room Air 10/30/22 07:25 Oxygen Flow Rate 0 10/30/22 07:25 Pain Level 5 10/30/22 07:25 Comment not taking otc pain relievers took BP med this morning 10/30/22 07:25
== END 2022-10-30 08:03 | disposition home or self-care (01) ==
PROVIDERS: Emergency Provider Emergency Medicine; PCP Family Medicine
DX: R21 Rash and other nonspecific skin eruption (principal)
CPT/HCPCS: 99281; 99282

== ENCOUNTER 2022-11-16 08:17 | Outpatient (CLI) | payer MEDICARE, SELFPAY ==
[2022-11-16 12:37] LABS: Abs Immature Grans 0.02 10^3/uL (0.0-0.06); Absolute Basophil Count 0.05 10^3/uL (0.0-0.2); Absolute Eosinophil Count 0.33 10^3/uL (0.0-0.7); Absolute Lymphocyte Count 0.75 10^3/uL (1.2-3.4); Absolute Neutrophil Count 4.35 10^3/uL (1.2-6.7); Basophils % 0.8; Eosinophils % 5.5; HCT 41.5 % (36.0-46.0); HGB 13.8 g/dL (11.2-15.7); Immature Grans % 0.3; Lymphocytes % 12.5; MCH 30.6 pg (27.0-33.0); MCHC 33.3 % (32.0-36.0); MCV 92 fL (80-95); Monocytes % 8.3; Neutrophils % 72.6; Platelet Count 266 10^3/uL (130-400); RBC 4.51 10^6/uL (3.93-5.22); RDW 13.3 % (11.7-14.6)
[2022-11-16 12:48] LABS: ESR 6 mm/hr (0-30)
[2022-11-16 13:15] LABS: ALT 42 U/L (14-59); AST 10 U/L (15-37); Alkaline Phosphatase 86 U/L (46-116); Anion Gap 7.5 mmol/L (3-11); BUN 13 mg/dL (7-18); Bilirubin, Total 0.4 mg/dL (0.2-1.0); C-Reactive Protein 0.16 mg/dL (0.0-0.3); CO2 27.5 mmol/L (21.0-32.0); CREATININE 0.8 mg/dL (0.55-1.02); Calcium 9.5 mg/dL (8.5-10.1); Chloride 103 mmol/L (98-107); Estimated GFR 78.24 (mL/min/1.73m2); Glucose 98 mg/dL (74-106); Sodium 138 mmol/L (136-145); TSH (W/Ref FT4) 1.94 uIU/mL (0.36-3.74); Total Protein 7.5 g/dL (6.4-8.2)
[2022-11-17 14:10] LABS: ANA Interpretation Negative (Negative)
== END 2022-11-16 08:18 | disposition home or self-care (01) ==
LOC: LOS 08:18
PROVIDERS: PCP Family Medicine; Visit Provider Family Medicine
DX: L29.9 Pruritus, unspecified (principal); R21 Rash and other nonspecific skin eruption; M85.88 Other specified disorders of bone density and structure, other site; E78.2 Mixed hyperlipidemia; I10 Essential (primary) hypertension
CPT/HCPCS: 36415; 80053; 85027; 85652; 84443; 85025; 86038; 86140

== ENCOUNTER 2022-12-01 15:58 | Observation (INO) | payer MEDICARE, SELFPAY ==
[2022-12-01] VITALS (70 sets, daily range): BP systolic 115–210; BP diastolic 43–144; PULSE 54–93; RESP 11–24; TEMP 36.6; O2SAT 92–99
--- NOTE | 2022-12-01 16:00 | RT.EKG_ITS ---
APPROVED REPORT Exam: Resting ECG Reason for Exam: sob Patient Location: E HR:69 bpm ECG Measurements Heart Rate 69 AXIS HI 167 P 70 QRSd 75 QRS 17 QT 362 T 56 QTc 389 Conclusion Sinus rhythm...normal P axis, V-rate 60- 99 Probable left atrial enlargement...P >50mS, <-0.10mV V1 Borderline ST elevation, inferior leads...ST >0.06mV, II III aVF Narrow complex normal sinus rhythm at a rate of 69. Normal axis. Intervals within normal limits. M ild ST segment elevations inferiorly with ST segment depressions laterally. New compared to prior. Persistent T wave flattening in aVL.
--- NOTE | 2022-12-01 16:31 | W.ED.GENAD ---
Discharge Plan Discharge Details Chief Complaint: SOB Clinical Impression: Leukopenia, Left arm pain, Hx of unstable angina, Pulmonary nodule Primary Care Provider: Eliana Urias ED Provider: Malik Berman [place] Meds and New Rx's Prescriptions: No Action calcium carbonate-vitamin D3 [Calcium 600 with Vitamin D3] 600 mg-12.5 mcg (500 unit) capsule See Rx Instructions PO .every other day Hold Instructions: Changed by Provider Rx Instructions: 1 capsule daily orally EVERY OTHER DAY; pt-jp-svft-FA-Ca carb-vit K 18 mg iron-400 mcg-500 mg tablet 1 tab PO DAILY Hold Instructions: Changed by Provider cholecalciferol (vitamin D3) 25 mcg (1,000 unit) capsule 25 mcg PO DAILY Hold Instructions: Adverse Reaction amlodipine 5 mg tablet 5 mg PO DAILY Qty: 90 5RF Hold Instructions: Adverse Reaction albuterol sulfate [Ventolin HFA] 90 mcg/actuation HFA aerosol inhaler 2 puff inhalation Q6H PRN (Reason: shortness of breath or wheezing) Qty: 6.7 7RF aspirin 81 mg tablet,delayed release (DR/EC) 81 mg PO DAILY Qty: 90 4RF Hold Instructions: Adverse Reaction triamcinolone acetonide 0.1 % cream 1 applic topical BID Qty: 80 0RF Rx Instructions: apply to foot hydroxyzine HCl 10 mg tablet 10 mg PO TID PRN (Reason: itching) Qty: 30 2RF diphenhydramine HCl [Benadryl] 25 mg capsule 25 mg PO Q6H PRN fexofenadine [Dottie Allergy] 180 mg tablet 180 mg PO DAILY Qty: 30 0RF doxepin 10 mg capsule 10 mg PO TID PRN (Reason: itching) Qty: 30 4RF atorvastatin 40 mg tablet 20 mg PO DAILY Qty: 90 5RF Hold Instructions: Changed by Provider Medical Decision Making This is an overall very well-appearing hypertensive but not tachycardic nor febrile 72-year-old [id number]-[id number] female with left arm pain concerning for recurrent subclavian steal versus ACS. She does have mild ST segment depressions in her left lateral chest wall leads. Given that her symptoms began this morning will obtain 2 sets of troponin. Given shortness of breath with exertion I am concerned that this is possibly an an anginal equivalent. Given prior history of subclavian steal we will also obtain CT angiogram of her thorax. She also notes her left arm tingling is reminiscent of prior episode of chest symptoms which led to her having a right RCA stent placed in 2013. No tearing quality to her chest to suggest aortic dissection. No cough nor fevers to suggest pneumonia. No nausea nor vomiting to suggest increased risk for esophageal rupture. Her left hand is warm and well-perfused so I am not concerned for acute arterial occlusion. Will complete basic labs and obtain 2 sets of troponin and repeat ECG. Will reassess following labs and imaging. Concerning her dizziness I am not suspicious for CVA as she has no persistent dizziness nor any significant nystagmus nor ataxia. Her left arm tightness is not consistent with CVA and she has no significant left arm weakness. Similarly no dysarthria nor aphasia so I do not feel that patient has a CVA nor would she be a tPA candidate. She has been off of her aspirin and her antihypertensives given her recent reported history of a steroid burst. It is possible that off of her aspirin she has become more symptomatic from her subclavian steal. 6 PM Basic metabolic panel with no RANDEE no acute electrolyte abnormalities. Negative troponin. CBC with mild leukopenia no anemia no thrombocytopenia. Leukopenia similar to prior. Reassuring CK with no signs of rhabdomyolysis. 7:15 PM Patient has resolved left arm pain. I am concerned given that her pain is reminiscent of prior episode of pain leading to her RCA stent that she is not appropriate for stress test given her elevated Heart score. We will complete a second ECG and touch base with cardiology at [facility] where she has received her care in the past. Her left arm pain at the moment has resolved. She is markedly hypertensive in the 190s. Given that she has been off her aspirin in the past week and off of her amlodipine with elevated blood pressure and left arm pain I am concerned for increased risk of in-stent thrombosis. She will receive 324 mg of aspirin. We will also redosed with her 5 mg of amlodipine. Given her intermittent pain at rest I am concerned for the possibility of unstable angina for which I will page cardiology at [facility]. HEART SCORE Chest pain Diagnostic Protocol: - [History/Physical/Gestalt: Slightly Suspicious (0)] - [EKG: Nonspecific repolarization (+1)] - [AGE: 65 and older (+2)] - [RISK FACTORS: 3 or more risk factors and/or known CAD (+2)] - [TROPONIN: <= normal limit (0)] - TOTAL SCORE: 5 - Risk Factors: DM, current or recent smoker, HTN, HLD, family hx of CAD, obesity - INTERPRETATION: With a total score of 3 or less, risk of major cardiac event within six weeks 1.7%, likely lower with two negative troponins. 7:56 PM Repeat ECG showing narrow complex normal sinus rhythm at a rate of 97 with normal axis. New subtle T wave inversion in aVL. Persistent mild ST segment elevation in lead III. New poor R wave progression in V3 compared to prior. QTc within normal limits. MN within normal limits. She is also endorsing a headache though this is occurring in the setting of her elevated blood pressure. Her CT thorax was read as no signs of PE. No mention of any abnormality of her subclavian artery. The radiologist did note chronic findings and also noted some pulmonary nodules. Based on her age will touch base with her primary care provider for repeat CT without contrast in 12 months. We will update patient about this incidental finding. Given concern for unstable angina will initiate heparin drip. I updated the patient on pulmonary nodules about which she was already aware. I advised PCP follow-up. We will update the patient's daughter Terry at [phone]. 8:34 PM I spoke with Dr. Barnes from cardiology at [facility]. He was concerned about the patient's carotid to subclavian graft. He advised calling radiology to have them ensure that her graft was patent. He was less concerned about the possibility of ACS and advised against heparinization. If graft is patent we will proceed with local hospitalization with stress test per recommendation from cardiology. 8:42 PM I spoke with Dr. Ray from the hospitalist team letting her know about the patient as she would likely require hospitalization. Unfortunately I learned that we did not have stress testing possible in the morning tomorrow. 8:56 PM I updated the patient's daughter and her [id number] at bedside. Plan will be to have the patient's CT interpreted to ensure that she still has a patent carotid subclavian bypass. If this is not an issue then she will likely need transfer for a stress test possibly at [facility] or another facility. We will sign patient out to Dr. Ch. We will keep patient n.p.o. Patient is a full code. Chronic conditions affecting the care of the patient: Hypertension hyperlipidemia coronary artery disease History obtained from an outside historian: N/A External record review: [facility] EMR Diagnostic interpretations performed by me: Per my independent interpretation EKG shows: Narrow complex normal sinus rhythm at a rate of 69. Normal axis. Intervals within normal limits. Mild ST segment elevations inferiorly with ST segment depressions laterally. New compared to prior. Persistent T wave flattening in aVL. Medications: N/A Social determinants of health affecting disposition: N/A Management discussed with: Dr. Ch Treatment/interventions considered: Local hospitalization but felt the patient was more appropriate for transfer Response to therapies provided: Pressure slightly improved with nitroglycerin HPI General Date/Time Provider Initiated Documentation: 12/01/22 16:28. HPI Narrative: This is a right-handed 72-year-old female with history of coronary artery disease status post RCA stent in 2013 and subclavian steal now in the emergency department in the setting of dizziness, shortness of breath with exertion and left arm pain that began today. Patient reports that her primary care provider recently discontinued her off of her home medications within the past week. She reported that she has had 3 dizzy spells each day for the past 3 days. These last for approximately 20 minutes. She also today has had left arm tingling and pain reminiscent of prior episode of pain that led to her to RCA stenting approximately 9 years ago. Patient denies any particular chest pain. She denies any weakness in her left arm. She has not recent taken any falls. She does say that she has recently had some shortness of breath with exertion. Her episodes of dizziness feel as if a cloud is coming over her vision. She has been increasingly fatigued. Has not had any abdominal pain dysuria nor frequency. She denies routine tobacco ethanol and illicits. She has had no diaphoresis. She has not had any numbness or tingling in her hand. She also has a history of carcinoid tumor and knows that she has pulmonary nodules. Related Data Home Medications Medication Instructions Recorded Confirmed albuterol sulfate 90 mcg/actuation 2 puff inhalation Q6H PRN 07/10/20 12/01/22 aerosol inhaler (Ventolin HFA) shortness of breath or wheezing #6.7 grams aspirin 81 mg tablet,delayed 81 mg PO DAILY #90 tab-caps 07/10/20 12/01/22 release calcium carbonate 600 mg-vitamin See Rx Instructions PO .every 12/23/21 12/01/22 D3 12.5 mcg (500 unit) capsule other day (Calcium 600 with Vitamin D3) amlodipine 5 mg tablet 5 mg PO DAILY #90 tabs 06/01/22 12/01/22 cholecalciferol (vitamin D3) 25 25 mcg PO DAILY 06/01/22 12/01/22 mcg (1,000 unit) capsule fiikqarj-tyj-olmq-FA-Ca carb-vit K 1 tab PO DAILY 06/01/22 12/01/22 18 mg iron-400 mcg-500 mg tablet triamcinolone acetonide 0.1 % 1 applic topical BID #80 grams 10/29/22 12/01/22 topical cream diphenhydramine HCl 25 mg capsule 25 mg PO Q6H PRN 10/30/22 12/01/22 (Benadryl) fexofenadine 180 mg tablet 180 mg PO DAILY #30 tabs 10/30/22 12/01/22 (Dottie Allergy) hydroxyzine HCl 10 mg tablet 10 mg PO TID PRN itching #30 tabs 10/30/22 12/01/22 doxepin 10 mg capsule 10 mg PO TID PRN itching #30 caps 11/13/22 12/01/22 atorvastatin 40 mg tablet 20 mg PO DAILY #90 tabs 11/30/22 12/01/22 Previous Rx's Medication Instructions Recorded albuterol sulfate 90 mcg/actuation 2 puff inhalation Q6H PRN 07/10/20 aerosol inhaler (Ventolin HFA) shortness of breath or wheezing #6.7 grams aspirin 81 mg tablet,delayed 81 mg PO DAILY #90 tab-caps 07/10/20 release amlodipine 5 mg tablet 5 mg PO DAILY #90 tabs 06/01/22 triamcinolone acetonide 0.1 % 1 applic topical BID #80 grams 10/29/22 topical cream fexofenadine 180 mg tablet 180 mg PO DAILY #30 tabs 10/30/22 (Dottie Allergy) hydroxyzine HCl 10 mg tablet 10 mg PO TID PRN itching #30 tabs 10/30/22 doxepin 10 mg capsule 10 mg PO TID PRN itching #30 caps 11/13/22 atorvastatin 40 mg tablet 20 mg PO DAILY #90 tabs 11/30/22 Allergies Allergy/AdvReac Type Severity Reaction Status Date / Time hydrocodone Allergy Unknown RASH Verified 12/01/22 17:19 chlorhexidine Allergy Burning Verified 12/01/22 17:19 skin General Stated Complaint: SOB DEANNA: 3 PFSH All Active Problems (Updated 12/01/22 @ 20:04 by Malik Berman MD) Leukopenia (Acute) Left arm pain (Acute) Hx of unstable angina (Acute) Pulmonary nodule (Acute) Chronic pruritus (Acute) Generalized pruritus (Acute) Pruritus, genital (Acute) Rib pain on right side (Acute) Impacted cerumen, right ear (Acute) Right knee pain (Acute) Skin lesion (Acute) ? 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; s/p partial lobectomy RLL, repeat CT Scan in 6 m Conductive hearing loss, external ear (Acute) Impacted cerumen, left ear (Acute) Cough (Acute) Tick bite (Acute) Subclavian steal syndrome of left subclavian artery (Acute) Carotid stenosis, right (Acute) Vision changes (Acute) Abnormal mammogram (Acute) Dizziness (Acute) Tachycardia (Acute) Left arm numbness (Acute) Hip pain, right (Acute) DJD (degenerative joint disease), cervical (Acute) TOS (thoracic outlet syndrome) (Acute) Scalenus anticus syndrome (Acute) Annual physical exam (Acute) Neck pain (Acute) Exercise-induced asthma (Chronic) Low back pain (Chronic 01/13/16) Subclavian steal syndrome (Chronic) BP always on Right side NO MARSH if bypass needed Coronary arteriosclerosis (Chronic 11/16/13) stent placed RCA 10/16 Essential hypertension (Chronic) Hearing problem (Chronic) Hyperlipidemia (Chronic 09/11/08) borderline Non-alcoholic fatty liver disease (Chronic) Osteopenia (Chronic 06/03/04) T= -1.7; -0.8; -1.4 Medical History Asymmetrical sensorineural hearing loss Breast lump Breast lump Coronary arteriosclerosis Essential hypertension External carotid artery stenosis (~06/03/18) Fracture of head of radius (09/29/14) Fracture of metatarsal bone Hyperlipidemia Non-alcoholic fatty liver disease Osteopenia Palpitations Palpitations (12/19/13) Recurrent falls (04/14/16) Sebaceous cyst Sinusitis Surgical History section x 2 Cholecystectomy (~2000) endometrial biopsy (~2003) negative History of section History of unilateral oophorectomy Hysterectomy, Laproscopic (~2006) Oophrectomy, unilateral (~1994) ovarian cyst Status post cholecystectomy Status post laparoscopic hysterectomy Stent placement 10/2013 Family History Mother Diabetes Essential hypertension Personal history of malignant neoplasm Breast Heart disease Hyperlipidemia Stroke Father , age 75 Alcohol abuse Chronic obstructive lung disease Sister Diabetes Essential hypertension Hyperlipidemia Chronic obstructive lung disease Breast cancer Sister Essential hypertension Asthma Breast cancer Brother , age 58 Heart disease NM Daughter Breast cancer Brother Hyperlipidemia Asthma Hypertension Sister Asthma Son Diabetes Social History Smoking/Tobacco Use Status: Former Tobacco Use tobacco type: cigarettes Quit Date: 07/05/85 Tobacco: How many years used: 15 Second Hand Exposure: Yes Smoking risk assessment performed?: Yes Alcohol Intake: current Alcohol Intake frequency: holidays/special occasions only Alcohol type: wine Drug use: Never Substance use type: does not use Caregiver/Support person: No Household members: other Details: Sister Housing: house Communication Needs: None Do you need help understanding health information?: Never Pets and animals: No Sexually active: No Do you think of yourself as: straight/heterosexual Current gender identity: female What is your relationship status?: How often do you talk on the phone with friends or family?: three or more times per week How often do you get together with friends or relatives?: three or more times per week How often do you attend druze or nondenominational services?: decline to answer Do you belong to any clubs or organized social groups?: no Panel score (0-1 are the most socially isolated patients): 1 What type of physical activity do you participate in: walking, bicycling and other Details: Riding Duration: 15-30 minutes/day Frequency: 1-2 times per week Niurka/Jehovah'S Witness: Temple Special niurka needs: No Seatbelt use: always Helmet use: Yes Helmet use: always Drive intox or ride w/intox local truck driver: No Do you feel safe at home: Yes Do you feel safe in your relationship?: Yes Exam Narrative Exam Narrative: General: Well-appearing in no acute distress speaking in complete sentences. Head: Normocephalic, atraumatic. Eye: Pupils equal, round reactive to light. Extraocular eye movements intact. No conjunctival injection. No scleral icterus. Ear, nose, mouth, throat: Grossly normal inspection. Normal voice, handling secretions normally. Neck: Trachea midline. Cardiovascular: Well-perfused distal extremities. Regular rate and rhythm. No murmurs. Respiratory: Nonlabored respiration. Clear lungs bilaterally. Gastrointestinal: Nondistended abdomen.Soft nontender Musculoskeletal: No significant lower extremity pitting edema. Moving all 4 extremities spontaneously. Left upper extremity warm and well-perfused with full intact range of motion at the shoulder left elbow and left wrist and hand. 2+ left radial pulse. Cap refill less than 2 seconds in the left fingertips. Sensation and motor function intact in the left hand across the radial, median, and ulnar nerve distributions. Skin: Normal for age and race, grossly normal temperature and turgor. No acute rash. Neurologic: Alert and appropriate, no apparent acute deficits. Psychiatric: Mood and manner are appropriate. Grooming and personal hygiene are appropriate. Course Vital Signs Vital signs: Vital Signs Temperature 36.6 C 12/01/22 16:07 Pulse 70 12/01/22 16:07 Respiratory Rate 18 12/01/22 16:07 Blood Pressure 198/76 H 12/01/22 16:07 Pulse Oximetry 99 12/01/22 16:07 Temperature 36.6 C 12/01/22 16:07 Temperature Source Oral 12/01/22 16:07 Pulse 70 12/01/22 16:07 Respiratory Rate 18 12/01/22 16:07 Respiratory Effort Normal, Non-Labored 12/01/22 16:20 Blood Pressure 198/76 H 12/01/22 16:07 Blood Pressure Position Supine 12/01/22 16:07 Pulse Oximetry 99 12/01/22 16:07 Oxygen Delivery Method Room Air 12/01/22 16:07 Oxygen Flow Rate 0 12/01/22 16:07 Pain Level 5 12/01/22 16:07
--- NOTE | 2022-12-01 17:00 | DI.CT_ITS ---
Exam(s) CT THORAX CTA EXAM: CT THORAX CTA CLINICAL HISTORY: Left arm pain history of subclavian steal. TECHNIQUE: Imaging Protocol: Axial CT angiography was performed with multi-slice acquisition and mu lti-planar reconstructions as well as axial, coronal and sagittal MIP reconstructions. CONTRAST MATERIAL: Intravenous: Omnipaque 350 Contrast volume:100 ml COMPARISON: CT CT CHEST WO from 02/27/2022 FINDINGS: Pulmonary Arteries: No evidence of filling defect to suggest pulmonary emboli. Tracheobronchial tree: Patent where visualized. Mediastinum and Trista: No dominant adenopathy or fluid collection. Pulmonary parenchyma: Mild atelectasis left lung base. No consolidation or dominant measurable mass. Multifocal air trapping. 5 millimeter nodule right upper lobe, stable. Small bleb right lower lobe . Apparent suture line lateral superior segment left lower lobe. This may be related to her resecti on of previously noted pulmonary nodule. Clinical correlation recommended. Pleura: No effusion or pneumothorax. Heart: The heart is not dilated. Moderate coronary artery calcifications are seen. Aorta: Thoracic aorta non-dilated. No aneurysm. No dissection. Atherosclerotic changes. Upper abdomen: Small hiatal hernia. Status post cholecystectomy. Bones: Degenerative changes in the spine and shoulders. IMPRESSION: No evidence of pulmonary embolism or other acute abnormality.. Stable 5 millimeter nodule right upper lobe. Unless the patient is at high risk for lung cancer, no further follow-up indicated. RADIATION DOSE DELIVERED: 396.3mGy.cm Total DLP DATA REPOSITORY: All CT scans at this facility are submitted to the National Radiology Data Registry (NRDR) Dose Index Registry (DIR) with the [employer] (ACR). RADIATION OPTIMIZATION: All CT scans at this facility use at least one of these dose optimization te chniques: automated exposure control; mA and/or kV adjustment per patient size (includes targeted exa ms where dose is matched to clinical indication); or iterative reconstruction.
[2022-12-01 17:33] LABS: Abs Immature Grans 0.01 10^3/uL (0.0-0.06); Absolute Basophil Count 0.05 10^3/uL (0.0-0.2); Absolute Lymphocyte Count 1.17 10^3/uL (1.2-3.4); Absolute Monocyte Count 0.57 10^3/uL (0.1-0.8); Absolute Neutrophil Count 2.33 10^3/uL (1.2-6.7); Basophils % 1.2; Eosinophils % 4.6; HCT 36.9 % (36.0-46.0); HGB 12.6 g/dL (11.2-15.7); Immature Grans % 0.2; MCHC 34.1 % (32.0-36.0); MCV 91 fL (80-95); MPV 9.5 fL (8.0-11.0); Monocytes % 13.2; Neutrophils % 53.8; Platelet Count 268 10^3/uL (130-400); RBC 4.06 10^6/uL (3.93-5.22); RDW 13.1 % (11.7-14.6); RDW-SD 43.7 fL; WBC 4.33 10^3/uL (4.4-10.8)
[2022-12-01 17:52] LABS: Anion Gap 7.5 mmol/L (3-11); BUN 13 mg/dL (7-18); CO2 28.5 mmol/L (21.0-32.0); CREATININE 0.7 mg/dL (0.55-1.02); Chloride 107 mmol/L (98-107); Creatine Kinase 62 U/L (26-192); Estimated GFR 91.83 (mL/min/1.73m2); Glucose 91 mg/dL (74-106); Potassium 3.7 mmol/L (3.5-5.1); Sodium 143 mmol/L (136-145); Troponin I < 50 ng/L (<or=60)
[2022-12-01] MEDS: Omnipaque 350 MG/ML 100 ML BTL IJ (18:09)
[2022-12-01] MEDS: Normal Saline - Diluent 50 ML VIAL IJ (18:10)
--- NOTE | 2022-12-01 18:42 | DI.VRAD_ITS ---
PROCEDURE INFORMATION: Exam: CTA Chest With Contrast Exam date and time: 12/01/2022 6:10 PM Age: 72 years old Clinical indication: Other: Left arm pain history of subclavian steal TECHNIQUE: Imaging protocol: Computed tomographic angiography of the chest with contrast. Exam focused on the arteries. 3D rendering (Not supervised by radiologist): MIP and/or 3D reconstructed images were created by the technologist. COMPARISON: CT CHEST WO 02/27/2022 12:34 PM FINDINGS: Pulmonary arteries: There is no evidence of a pulmonary embolus. Aorta: There are arteriosclerotic changes of the aorta. Thyroid: The thyroid gland is within normal limits. Lungs: The tracheobronchial tree is patent bilaterally. There is a mosaic pattern. This could be secondary to air trapping. There is fibrosis and scarring within the right lower lobe. There is fibrosis and scarring within the left lower lobe. There is fibrosis and scarring within the inferior aspect of the left upper lobe. There is a bleb within the right lower lobe. There is a nodule within the right upper lobe measuring approximally 5 mm. This was present on the prior study and appears essentially unchanged. Please see axial series 4, image 33. The previously noted additional nodule more inferiorly is not seen to the same extent as on the prior study. There is a small nodule within the left upper lobe measuring approximally 2 mm. This was present on the earlier study as well and appears unchanged. Please see axial series 4, image 33. Pleural spaces: Unremarkable. No pneumothorax. No pleural effusion. Heart: The heart and pericardium are within normal limits. Coronary arteries: There are slight coronary artery calcifications. Lymph nodes: No enlarged lymph nodes. Bones/joints: There are degenerative changes of both shoulders. There are degenerative changes of the thoracic spine. There are degenerative changes of the lumbar spine. Soft tissues: Unremarkable. IMPRESSION: 1. There is no evidence of a pulmonary embolus. 2. Chronic lung findings as above. Suspect air trapping as above. Small pulmonary nodules as above.For patients at low risk (minimal or absent history of smoking and of other known risk factors), no routine follow-up is indicated. For patients at high risk (history of smoking or of other known risk factors), consider optional CT Chest at 12 months. (Reference: Luda) 3. Osseous findings as above. 4. Arteriosclerotic changes of the aorta. Slight coronary artery calcifications. REFERENCES: Luda Gregory et al. Guidelines for Management of Incidental Pulmonary Nodules Detected on CT Images: From the Fleischner Society 2017. Radiology. 2017;284(1):228-243. Dictated and Authenticated by: Lake Cornejo MD. Ordering:BEE Gan MD
--- NOTE | 2022-12-01 19:30 | RT.EKG_ITS ---
APPROVED REPORT Exam: Resting ECG Reason for Exam: Chest pain Patient Location: E HR:97 bpm ECG Measurements Heart Rate 97 AXIS MT 176 P 77 QRSd 61 QRS 18 QT 345 T 65 QTc 438 Conclusion Sinus rhythm...normal P axis, V-rate 60- 99 Repeat ECG showing narrow complex normal sinus rhythm at a rate of 97 with normal axis. New subtle T wave inversion in aVL. Persistent mild ST segment elevation in lead III. New poor R wave progressi on in V3 compared to prior. QTc within normal limits. MT within normal limits.
[2022-12-01] MEDS: Aspirin 325 MG TAB PO (19:45)
[2022-12-01] MEDS: nitroGLYcerin 0.4 MG TAB SL ×2 (19:46→23:18)
[2022-12-01 20:52] LABS: Troponin I < 50 ng/L (<or=60)
--- NOTE | 2022-12-01 21:13 | DI.VRAD_ITS ---
Addendum created by Malik Tran MD on 12/01/2022 9:13:12 PM EDT: Addendum: The facility requested an addendum to discuss the patient's vascular graft, and the original dictating radiologist was off shift and so I was asked to perform the addendum. My review of the exam was limited to the requested graft assessment. There is a vascular graft from the left common carotid artery to the left subclavian artery. The graft is patent without evidence of complication. Severe calcific plaque producing chronic occlusion in the proximal left subclavian artery is unchanged. The previous seroma around the graft seen on 02/27/2022 has fully resolved. Initial report created on 12/01/2022 6:42:11 PM EDT: PROCEDURE INFORMATION: Exam: CTA Chest With Contrast Exam date and time: 12/01/2022 6:10 PM Age: 72 years old Clinical indication: Other: Left arm pain history of subclavian steal TECHNIQUE: Imaging protocol: Computed tomographic angiography of the chest with contrast. Exam focused on the arteries. 3D rendering (Not supervised by radiologist): MIP and/or 3D reconstructed images were created by the technologist. COMPARISON: CT CHEST WO 02/27/2022 12:34 PM FINDINGS: Pulmonary arteries: There is no evidence of a pulmonary embolus. Aorta: There are arteriosclerotic changes of the aorta. Thyroid: The thyroid gland is within normal limits. Lungs: The tracheobronchial tree is patent bilaterally. There is a mosaic pattern. This could be secondary to air trapping. There is fibrosis and scarring within the right lower lobe. There is fibrosis and scarring within the left lower lobe. There is fibrosis and scarring within the inferior aspect of the left upper lobe. There is a bleb within the right lower lobe. There is a nodule within the right upper lobe measuring approximally 5 mm. This was present on the prior study and appears essentially unchanged. Please see axial series 4, image 33. The previously noted additional nodule more inferiorly is not seen to the same extent as on the prior study. There is a small nodule within the left upper lobe measuring approximally 2 mm. This was present on the earlier study as well and appears unchanged. Please see axial series 4, image 33. Pleural spaces: Unremarkable. No pneumothorax. No pleural effusion. Heart: The heart and pericardium are within normal limits. Coronary arteries: There are slight coronary artery calcifications. Lymph nodes: No enlarged lymph nodes. Bones/joints: There are degenerative changes of both shoulders. There are degenerative changes of the thoracic spine. There are degenerative changes of the lumbar spine. Soft tissues: Unremarkable. IMPRESSION: 1. There is no evidence of a pulmonary embolus. 2. Chronic lung findings as above. Suspect air trapping as above. Small pulmonary nodules as above.For patients at low risk (minimal or absent history of smoking and of other known risk factors), no routine follow-up is indicated. For patients at high risk (history of smoking or of other known risk factors), consider optional CT Chest at 12 months. (Reference: Luda) 3. Osseous findings as above. 4. Arteriosclerotic changes of the aorta. Slight coronary artery calcifications. REFERENCES: Luda H, et al. Guidelines for Management of Incidental Pulmonary Nodules Detected on CT Images: From the Fleischner Society 2017. Radiology. 2017;284(1):228-243. Dictated and Authenticated by: Malik Tran MD. Ordering:BEE Gan MD
--- NOTE | 2022-12-01 23:44 | W.PM.HP.N ---
Date of service: 12/01/22 Time of Service: 23:44 Assessment and Plan Assessment and plan (1) Left arm pain: Status: Acute Assessment and plan: Given response to nitroglycerin, I wonder if this isn't an anginal equivalent. Obtain an echocardiogram. I have reservations about doing a stress test at our facility given anginal qualities to her pain. (2) Essential hypertension: Status: Chronic Assessment and plan: agree with continuing norvasc re-initiated in ED. I wonder if some of the patient's symptoms are not related to hypertensive urgency. Will write for prn IV Lopressor. (3) Dizziness: Status: Acute Assessment and plan: This sounds near-syncopal per description. Will monitor on tele, obtain an echocardiogram, orthostatic VS. Will give 1 L of LR gently due to pressure natriuresis and clinical dehydration. (4) Dyspnea on exertion: Status: Acute Assessment and plan: Obtain an echocardiogram. Monitor I/Os and daily weights. No clinically fluid overloaded. (5) Hx of unstable angina: Status: Chronic Assessment and plan: As above (6) Coronary arteriosclerosis: Status: Chronic Assessment and plan: S/p RCA stent in 2013. Continue asa, statin, check Fasting lipid panel. Consider BB. (7) Subclavian steal syndrome: Status: Chronic Assessment and plan: s/p subclavian to carotid bypass about a year ago followed by thoracic duct ligation. Will monitor BPs on the right side only. Imaging reviewed with radiology by the ED provider and current sx are not felt to be due to this. 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 Her LUE pain is squeezing around her wrist and upper arm, but without numbness/tingling/weakness, and it reminded her of when she needed to get the stent. Her medications were discontinued and/or decreased per PCP due to a nonspecific rash still under investigation, and ever since then she has had several dizzy spells daily for three weeks, at least three times a day. The spells happen with change of position and turning and feel like she might pass out. She states that when she closes her eyes she feels better. Otherwise, her vision gets blurred. She states her BPs at home have been in 130s - she has been monitoring them daily in am. The patient specifically denies chest pain, shortness of breath at rest, palpitations, nausea. She notices her ROYAL when she walks from the parking lot to the [employer] where she works. The patient's arm pain responded to nitroglycerin in the ED. Troponins were negative. Blood pressures have been quite elevated in the ED to as high as 210/88, though the patient has a h/o white coat hypertension, per ER provider. Her EKGs did not show signs of acute ischemia. Her case was discussed with [facility] [place]. It is not clear if cardiology was aware that the pain in the arm was responsive to nitroglycerin. The patient was recommended an echo and a stress test and it was felt to be safe to wait until 48 hrs from now to do it since we do not have stress test capabilities on 12/02/22. There were no recommendations for plavix or heparinization. Imaging of thoracic aorta was reviewed due to h/o subclavian steal and the bypass surgery. No alarming vascular findings were seen. (several pulmonary nodules were noted). Hospitalist admission was requested. The patient mentions that, after she got the IV contrast, a spot over her R thumb became itchy and red. Review of Systems All systems reviewed & are unremarkable except as noted in HPI and below PFSH All Active Problems (Updated 12/02/22 @ 01:54 by Radha Ray MD) Dyspnea on exertion (Acute) Discharge planning issues (Acute) DVT prophylaxis (Acute) Leukopenia (Acute) Left arm pain (Acute) Hx of unstable angina (Chronic) Pulmonary nodule (Acute) Chronic pruritus (Acute) Generalized pruritus (Acute) Pruritus, genital (Acute) Rib pain on right side (Acute) Impacted cerumen, right ear (Acute) Right knee pain (Acute) Skin lesion (Acute) ? 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; s/p partial lobectomy RLL, repeat CT Scan in 6 m Conductive hearing loss, external ear (Acute) Impacted cerumen, left ear (Acute) Cough (Acute) Tick bite (Acute) Subclavian steal syndrome of left subclavian artery (Acute) Carotid stenosis, right (Acute) Vision changes (Acute) Abnormal mammogram (Acute) Dizziness (Acute) Tachycardia (Acute) Left arm numbness (Acute) Hip pain, right (Acute) DJD (degenerative joint disease), cervical (Acute) TOS (thoracic outlet syndrome) (Acute) Scalenus anticus syndrome (Acute) Annual physical exam (Acute) Neck pain (Acute) Exercise-induced asthma (Chronic) Low back pain (Chronic 01/13/16) Subclavian steal syndrome (Chronic) BP always on Right side NO MARSH if bypass needed Coronary arteriosclerosis (Chronic 11/16/13) stent placed RCA 10/16 Essential hypertension (Chronic) Hearing problem (Chronic) Hyperlipidemia (Chronic 09/11/08) borderline Non-alcoholic fatty liver disease (Chronic) Osteopenia (Chronic 06/03/04) T= -1.7; -0.8; -1.4 Medical History Asymmetrical sensorineural hearing loss Breast lump Breast lump Coronary arteriosclerosis Essential hypertension External carotid artery stenosis (~06/03/18) Fracture of head of radius (09/29/14) Fracture of metatarsal bone Hyperlipidemia Non-alcoholic fatty liver disease Osteopenia Palpitations Palpitations (12/19/13) Recurrent falls (04/14/16) Sebaceous cyst Sinusitis Surgical History section x 2 Cholecystectomy (~2000) endometrial biopsy (~2003) negative History of section History of unilateral oophorectomy Hysterectomy, Laproscopic (~2006) Oophrectomy, unilateral (~1994) ovarian cyst Status post cholecystectomy Status post laparoscopic hysterectomy Stent placement 10/2013 Family History Mother Diabetes Essential hypertension Personal history of malignant neoplasm Breast Heart disease Hyperlipidemia Stroke Father , age 75 Alcohol abuse Chronic obstructive lung disease Sister Diabetes Essential hypertension Hyperlipidemia Chronic obstructive lung disease Breast cancer Sister Essential hypertension Asthma Breast cancer Brother , age 58 Heart disease DC Daughter Breast cancer Brother Hyperlipidemia Asthma Hypertension Sister Asthma Son Diabetes Social History Smoking/Tobacco Use Status: Former Tobacco Use tobacco type: cigarettes Quit Date: 07/05/85 Tobacco: How many years used: 15 Second Hand Exposure: Yes Smoking risk assessment performed?: Yes Alcohol Intake: current Alcohol Intake frequency: holidays/special occasions only Alcohol type: wine Drug use: Never Substance use type: does not use Caregiver/Support person: No Household members: other Details: Sister Housing: house Communication Needs: None Do you need help understanding health information?: Never Pets and animals: No Sexually active: No Do you think of yourself as: straight/heterosexual Current gender identity: female What is your relationship status?: How often do you talk on the phone with friends or family?: three or more times per week How often do you get together with friends or relatives?: three or more times per week How often do you attend confucianist or roman catholic services?: decline to answer Do you belong to any clubs or organized social groups?: no Panel score (0-1 are the most socially isolated patients): 1 What type of physical activity do you participate in: walking, bicycling and other Details: Riding Duration: 15-30 minutes/day Frequency: 1-2 times per week Niurka/Anabaptist: Tenriism Special niurka needs: No Seatbelt use: always Helmet use: Yes Helmet use: always Drive intox or ride w/intox 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 Do you feel safe at home: Yes Do you feel safe in your relationship?: Yes Meds Allergies and Home Medications Allergies Allergy/AdvReac Type Severity Reaction Status Date / Time hydrocodone Allergy Unknown RASH Verified 12/01/22 17:19 chlorhexidine Allergy Burning Verified 12/01/22 17:19 skin Home Medications Medication Instructions Recorded Confirmed Type albuterol sulfate 90 mcg/actuation 2 puff inhalation Q6H PRN 01/06/21 05/30/23 Rx aerosol inhaler (Ventolin HFA) shortness of breath or wheezing #6.7 grams aspirin 81 mg tablet,delayed 81 mg PO DAILY #90 tab-caps 07/10/20 12/01/22 Rx release calcium carbonate 600 mg-vitamin See Rx Instructions PO .every 12/23/21 12/01/22 History D3 12.5 mcg (500 unit) capsule other day (Calcium 600 with Vitamin D3) amlodipine 5 mg tablet 5 mg PO DAILY #90 tabs 06/01/22 12/01/22 Rx cholecalciferol (vitamin D3) 25 25 mcg PO DAILY 06/01/22 12/01/22 History mcg (1,000 unit) capsule [id number]-Ca carb-vit K 1 tab PO DAILY 06/01/22 12/01/22 History 18 mg iron-400 mcg-500 mg tablet triamcinolone acetonide 0.1 % 1 applic topical BID #80 grams 10/29/22 12/01/22 Rx topical cream diphenhydramine HCl 25 mg capsule 25 mg PO Q6H PRN 10/30/22 12/01/22 History (Benadryl) fexofenadine 180 mg tablet 180 mg PO DAILY #30 tabs 10/30/22 12/01/22 Rx (Dottie Allergy) hydroxyzine HCl 10 mg tablet 10 mg PO TID PRN itching #30 tabs 10/30/22 12/01/22 Rx doxepin 10 mg capsule 10 mg PO TID PRN itching #30 caps 11/13/22 12/01/22 Rx atorvastatin 40 mg tablet 20 mg PO DAILY #90 tabs 11/30/22 12/01/22 Rx Exam Narrative Exam Narrative: General: Very pleasant elderly female who is A&Ox3, appears comfortable in bed Neurological: A&Ox3, no focal deficits Psychiatric: Appropriate speech pattern/content Skin: mild erythema over fist digis RUE HEENT: Atraumatic, normocephalic, EOMI, dry MM, clear oropharynx, no submandibular or cervical lymphadenopathy, no goiter or JVD Cardiovascular: RRR, no m/r/g Lungs: CTAB Gastrointestinal: soft, nontender, nondistended Genitourinary: deferred Extremities: no edema, clubbing, or cyanosis BLEs. 2+ pedal pulse on L foot, trace pedal pulse on R foot. Results Imaging Additional studies: CTA thoracic aorta: 1. ? There is no evidence of a pulmonary embolus. 2. ? Chronic lung findings as above. Suspect air trapping as above. Small pulmonary nodules as above.For patients at low risk (minimal or absent history of smoking and of other known risk factors), no routine follow-up is indicated. For patients at high risk (history of smoking or of other known risk factors), consider optional CT Chest at 12 months. (Reference: Luda) 3. ? Osseous findings as above. 4. ? Arteriosclerotic changes of the aorta. Slight coronary artery calcifications. EKG #1: NSR, HR 69, nonspecific ST-T changes. EKG #2; ST, HR 97, unchanged. Labs 12/01/22 17:24 12/01/22 17:24 Labs: Laboratory Results - last 24 hr 12/01/22 12/01/22 12/01/22 17:24 17:24 20:13 WBC 4.33 L RBC 4.06 Hgb 12.6 Hct 36.9 MCV 91 MCH 31.0 MCHC 34.1 RDW 13.1 Plt Count 268 MPV 9.5 Immature Gran % 0.2 Neutrophils % 53.8 Lymphocytes % 27.0 Monocytes % 13.2 Eosinophils % 4.6 Basophils % 1.2 Nucleated RBC % 0.0 Absolute Neutrophils 2.33 Absolute Lymphocytes 1.17 L Absolute Monocytes 0.57 Absolute Eosinophils 0.20 Absolute Basophils 0.05 Sodium 143 Potassium 3.7 Chloride 107 Carbon Dioxide 28.5 Anion Gap 7.5 BUN 13 Creatinine 0.7 Est GFR (CKD-EPI 2020) 91.83 Glucose 91 Calcium 9.0 Creatine Kinase 62 Troponin I < 50 < 50 12/01/22 22:13 WBC RBC Hgb Hct MCV MCH MCHC RDW Plt Count MPV Immature Gran % Neutrophils % Lymphocytes % Monocytes % Eosinophils % Basophils % Nucleated RBC % Absolute Neutrophils Absolute Lymphocytes Absolute Monocytes Absolute Eosinophils Absolute Basophils Sodium Potassium Chloride Carbon Dioxide Anion Gap BUN Creatinine Est GFR (CKD-EPI 2020) Glucose Calcium Creatine Kinase Troponin I Cancelled Last Vital Signs Temp 36.6 C 12/01/22 16:07 Pulse 55 L 12/01/22 23:41 Resp 12 12/01/22 23:41 BP 138/43 L 12/01/22 23:41 Pulse Ox 93 12/01/22 23:41 Time Spent Time spent with Patient: 55-74 minutes Time was spent: preparing to see the patient(eg.review tests), obtaining and/or reviewing separately otained hiistory, ordering medications,tests, procedures, referring, communicating with other health family member caretaker, indepentently interpreting results, counseling the patient and care coordination
[2022-12-02] VITALS (7 sets, daily range): BP systolic 137–161; BP diastolic 65–79; PULSE 55–81; RESP 16–18; TEMP 36.1–36.8; O2SAT 94–97
--- NOTE | 2022-12-02 03:12 | W.EDPROG ---
Date of service: 12/02/22 Time of Service: 03:12 Medical Decision Making Patient was signed out to me by my colleague Dr. Berman. Please refer to his HPI, physical exam, assessment and plan. At time of signout we are awaiting repeat read by virtual radiology. The patient's repeat read shows no evidence of vascular catastrophe or significant abnormality over the location of her previous vascular surgery for the subclavian steal syndrome. On reassessment patient continues to feel well. She admits to continued minimal achiness in her left arm. She otherwise feels well and has no chest pain whatsoever. Discussed the case with [facility] cardiology again, and at this time they feel that there is no indication for transfer at this time. They do feel that a stress test is certainly reasonable, but they do not feel that it needs to be done emergently tomorrow Wednesday and could wait till . They do not recommend heparinization or anticoagulation at this time. Patient's EKG and troponin remained stable. Patient will be admitted for further observation, serial troponins, and stress echo. Discussed the case with hospitalist Dr. Ray. I have extensively reviewed the treatment plan with the patient. I have addressed all patient concerns at this time. I have also discussed the plan with the admitting physician and they agree with the current assessment and plan and have agreed to assume responsibility for the patient. All parties demonstrate verbal understanding and agreement with our assessment and plan at this time. The documentation in this chart was dictated using [employer] dictation software. Please excuse any dictation errors. Addendum created by Malik Tran MD on 12/01/2022 9:13 PM Eastern Time ([place] & [place]): Addendum: The facility requested an addendum to discuss the patient's vascular graft, and the original dictating radiologist was off shift and so I was asked to perform the addendum. My review of the exam was limited to the requested graft assessment. There is a vascular graft from the left common carotid artery to the left subclavian artery. The graft is patent without evidence of complication. Severe calcific plaque producing chronic occlusion in the proximal left subclavian artery is unchanged. The previous seroma around the graft seen on 02/27/2022 has fully resolved. Initial Report created on 12/01/2022 6:42 PM Eastern Time ([place] & [place]): PROCEDURE INFORMATION: Exam: CTA Chest With Contrast Exam date and time: 12/01/2022 6:10 PM Age: 72 years old Clinical indication: Other: Left arm pain history of subclavian steal TECHNIQUE: Imaging protocol: Computed tomographic angiography of the chest with contrast. Exam focused on the arteries. 3D rendering (Not supervised by radiologist): MIP and/or 3D reconstructed images were created by the technologist. COMPARISON: CT CHEST WO 02/27/2022 12:34 PM FINDINGS: Pulmonary arteries: There is no evidence of a pulmonary embolus. Aorta: There are arteriosclerotic changes of the aorta. ANANTH GASPAR Preliminary Radiology Report [employer] (QA) DISCREPANCY? If there is a discrepancy between the preliminary and final interpretation, please notify [facility] via [email or web address]. If you do not have access to our QA portal, call our QA team at [phone] CONFIDENTIALITY STATEMENT This report is intended only for the use of the referring physician, and only in accordance with law, If you received this in error, call [phone] Page 2 of 2 Thyroid: The thyroid gland is within normal limits. Lungs: The tracheobronchial tree is patent bilaterally. There is a mosaic pattern. This could be secondary to air trapping. There is fibrosis and scarring within the right lower lobe. There is fibrosis and scarring within the left lower lobe. There is fibrosis and scarring within the inferior aspect of the left upper lobe. There is a bleb within the right lower lobe. There is a nodule within the right upper lobe measuring approximally 5 mm. This was present on the prior study and appears essentially unchanged. Please see axial series 4, image 33. The previously noted additional nodule more inferiorly is not seen to the same extent as on the prior study. There is a small nodule within the left upper lobe measuring approximally 2 mm. This was present on the earlier study as well and appears unchanged. Please see axial series 4, image 33. Pleural spaces: Unremarkable. No pneumothorax. No pleural effusion. Heart: The heart and pericardium are within normal limits. Coronary arteries: There are slight coronary artery calcifications. Lymph nodes: No enlarged lymph nodes. Bones/joints: There are degenerative changes of both shoulders. There are degenerative changes of the thoracic spine. There are degenerative changes of the lumbar spine. Soft tissues: Unremarkable. IMPRESSION: 1. There is no evidence of a pulmonary embolus. 2. Chronic lung findings as above. Suspect air trapping as above. Small pulmonary nodules as above.For patients at low risk (minimal or absent history of smoking and of other known risk factors), no routine follow-up is indicated. For patients at high risk (history of smoking or of other known risk factors), consider optional CT Chest at 12 months. (Reference: Luda) 3. Osseous findings as above. 4. Arteriosclerotic changes of the aorta. Slight coronary artery calcifications. REFERENCES: Luda H, et al. Guidelines for Management of Incidental Pulmonary Nodules Detected on CT Images: From the Fleischner Society 2017. Radiology. 2017;284(1):228-243. Thank you for allowing us to participate in the care of your patient. Dictated and Authenticated by: Lake Cornejo MD 12/01/2022 6:42 PM Eastern Time ([place] & [place]) Sign Out Sign Out Data: Sign Out Comment: Please follow-up repeat troponin, repeat virtual radiology read to ensure patency of carotid subclavian bypass graft and hospitalist patient versus transfer for stress testing and repeat consultation with cardiology at [facility] as needed. Last updated by Malik Berman MD at 12/01/22 21:10 Discharge Plan Disposition Patient Disposition: Admit to [facility] Discharge Details Chief Complaint: SOB Clinical Impression: Leukopenia, Left arm pain, Hx of unstable angina, Pulmonary nodule Admit Date/Time: 12/01/22 23:40 Admit Provider: Radha Ray Attending Provider: Radha Ray Primary Care Provider: Eliana Urias ED Provider: Stephen Ch
[2022-12-02] MEDS: hydrOXYzine HCL 10 MG TAB PO (04:48)
[2022-12-02] MEDS: Lactated Ringers 1,000 ML 75 ML IV (04:48)
[2022-12-02] MEDS: Acetaminophen 325 MG TAB PO (06:09)
[2022-12-02 06:22] LABS: Absolute Basophil Count 0.05 10^3/uL (0.0-0.2); Absolute Eosinophil Count 0.21 10^3/uL (0.0-0.7); Absolute Lymphocyte Count 0.93 10^3/uL (1.2-3.4); Absolute Monocyte Count 0.52 10^3/uL (0.1-0.8); Absolute Neutrophil Count 1.94 10^3/uL (1.2-6.7); Basophils % 1.4; Eosinophils % 5.8; HCT 37.9 % (36.0-46.0); HGB 12.9 g/dL (11.2-15.7); Lymphocytes % 25.5; MCV 91 fL (80-95); MPV 9.2 fL (8.0-11.0); Monocytes % 14.2; Neutrophils % 53.1; Platelet Count 250 10^3/uL (130-400); RBC 4.16 10^6/uL (3.93-5.22); RDW 13.2 % (11.7-14.6); RDW-SD 45.5 fL; WBC 3.65 10^3/uL (4.4-10.8)
[2022-12-02 06:43] LABS: Anion Gap 7.2 mmol/L (3-11); BUN 11 mg/dL (7-18); CO2 26.8 mmol/L (21.0-32.0); CREATININE 0.7 mg/dL (0.55-1.02); Calcium 8.5 mg/dL (8.5-10.1); Calculated LDL 80 mg/dL (<100); Chloride 106 mmol/L (98-107); Cholesterol 186 mg/dL (<200); Estimated GFR 91.83 (mL/min/1.73m2); Glucose 92 mg/dL (74-106); HDL Cholesterol 85 mg/dL (40-60); Magnesium 2.1 mg/dL (1.8-2.4); Potassium 3.7 mmol/L (3.5-5.1); Sodium 140 mmol/L (136-145); Triglyceride 107 mg/dL (<150); Troponin I < 50 ng/L (<or=60)
[2022-12-02] MEDS: Atorvastatin 40 MG TAB 20 MG PO (07:43)
[2022-12-02] MEDS: amLODIPine 5 MG TAB PO (07:45)
[2022-12-02] MEDS: Normal Saline Flush 10 ML SYR IVP (07:47)
[2022-12-02] MEDS: Triamcinolone 0.1% CR 15 GM TUBE TP (12:01)
--- NOTE | 2022-12-02 13:50 | W.PM.DS.N ---
Date of service: 12/02/22 Time of Service: 13:50 DS: Diagnosis Discharge Diagnosis (1) Left arm pain: Status: Acute (2) Essential hypertension: Status: Chronic (3) Dizziness: Status: Acute (4) Dyspnea on exertion: Status: Acute (5) Hx of unstable angina: Status: Chronic (6) Coronary arteriosclerosis: Status: Chronic (7) Subclavian steal syndrome: Status: Chronic (8) Pulmonary nodule: Status: Acute Discharge Plan Disposition Patient Disposition: Home Condition: Stable Discharge Details Reason For Visit: Possible Angina Admit Date/Time: 12/01/22 23:40 Admit Provider: Radha Ray Attending Provider: Radha Ray Primary Care Provider: Eliana Urias [facility] Course Hospital Course: This is a 72 year old female with history of CAD, unstable angina s/p stent to RCA in 2013, subclavian steal syndrome and left carotid stenosis s/p subclavian to carotid bypass and thoracic duct ligation , 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 Her symptoms responded to nitroglycerin. Her work-up in the emergency department included EKG that shows no acute ST segment changes, and negative troponins. Her symptoms remained resolved. She was admitted to the hospitalist services for further management and monitoring. Overnight she rested comfortably with no recurrence of her symptoms. The next morning she underwent a echocardiogram which showed no wall motion abnormality, ejection fraction of 60% with normal right ventricular size and function. She had mild aortic regurg. Compared to previous echo of April 2021 there was no significant changes. Hemodynamically she has remained stable. Stress testing was not available so she will be referred for outpatient stress testing. Order has been placed. She is stable and ready for discharge to home she was instructed to return to the emergency department sooner for new or worsening symptoms discharge discussed with Dr. Bedolla patient is discharged to home with no services Home Meds and New Rx's Prescriptions: Continued calcium carbonate-vitamin D3 [Calcium 600 with Vitamin D3] 600 mg-12.5 mcg (500 unit) capsule See Rx Instructions PO .every other day Hold Instructions: Changed by Provider Rx Instructions: 1 capsule daily orally EVERY OTHER DAY; [id number] carb-vit K 18 mg iron-400 mcg-500 mg tablet 1 tab PO DAILY Hold Instructions: Changed by Provider cholecalciferol (vitamin D3) 25 mcg (1,000 unit) capsule 25 mcg PO DAILY Hold Instructions: Adverse Reaction amlodipine 5 mg tablet 5 mg PO DAILY Qty: 90 5RF Hold Instructions: Adverse Reaction albuterol sulfate [Ventolin HFA] 90 mcg/actuation HFA aerosol inhaler 2 puff inhalation Q6H PRN (Reason: shortness of breath or wheezing) Qty: 6.7 7RF aspirin 81 mg tablet,delayed release (DR/EC) 81 mg PO DAILY Qty: 90 4RF Hold Instructions: Adverse Reaction triamcinolone acetonide 0.1 % cream 1 applic topical BID Qty: 80 0RF Rx Instructions: apply to foot hydroxyzine HCl 10 mg tablet 10 mg PO TID PRN (Reason: itching) Qty: 30 2RF diphenhydramine HCl [Benadryl] 25 mg capsule 25 mg PO Q6H PRN fexofenadine [Dottie Allergy] 180 mg tablet 180 mg PO DAILY Qty: 30 0RF doxepin 10 mg capsule 10 mg PO TID PRN (Reason: itching) Qty: 30 4RF atorvastatin 40 mg tablet 20 mg PO DAILY Qty: 90 5RF Hold Instructions: Changed by Provider Discharge Instructions Instructions: Chest Pain (DC) Stand Alone Forms: Nursing Discharge Form Referrals: Eliana Urias [place], [place] [Primary Care Provider] - 12/09/22 8:40 am Activity:: no strenuous Equipment/Supplies:: No Equipment Needed Diet:: As Tolerated Discharge Orders Discharge Orders: Discharge Order (Routine); Ordered 12/02/22 Ordered By: Mary Nichols Other Ambulatory Orders: [facility] MPI rest & stress day 2 (Routine) Location: None Selected Ordered By: Mary Nichols Discharge Data Discharge Date/Time-TO BE ENTERED AT DEPARTURE: 12/02/22 15:00 DS: Summary Time Spent with Patient providing and/or coordinating discharge services: Less than 30 minutes Status at Discharge Functional status at discharge: independent ambulation Overall status at discharge: patient is back to baseline Mental Status: mental status grossly normal Speech and Movement: speech and movement normal Mood: congruent mood Affect: normal affect Exam Const General: cooperative, healthy appearing (younger than stated age), comfortable and no acute distress Nutritional Appearance: average body habitus Orientation: alert, awake and oriented x3 HENMT Head: normal to inspection, normocephalic and atraumatic Mouth: oral mucosae normal Chest Chest: normal inspection of the chest Resp Effort & Inspection: normal respiratory effort Cardio Rate: regular rate Rhythm: regular rhythm Heart Sounds: no murmurs GI Inspection: normal to inspection Skin General skin exam: no rashes or lesions noted Neuro General: patient alert, patient awake, patient oriented x3 and no focal motor deficits Gait: normal gait Extrem General: normal to inspection, full ROM and no pedal edema Psych Appearance: grossly normal Mental Status: mental status grossly normal Speech and Movement: speech and movement normal Mood: congruent mood Affect: normal affect Attitude: cooperative Thought Process: normal Thought Content: normal Insight: insight good Judgment: judgment good DS: Data Vitals/I&O Vitals and I&O: Vital Signs Temperature 36.8 C 12/02/22 11:23 Temperature Source Tympanic 12/02/22 11:23 Pulse 62 12/02/22 11:23 Pulse Rhythm Regular 12/02/22 07:49 Pulse 60 12/01/22 23:41 Respiratory Rate 18 12/02/22 11:23 Respiratory Effort Normal, Non-Labored 12/02/22 07:49 Respiratory Depth Normal 12/02/22 07:49 Respiratory Pattern Normal 12/02/22 07:49 Blood Pressure 161/70 H 12/02/22 11:23 Blood Pressure Mean 68 12/01/22 23:41 Blood Pressure Position Supine 12/01/22 16:07 Pulse Oximetry 95 12/02/22 11:23 Oxygen Delivery Method Room Air 12/02/22 11:23 Oxygen Flow Rate 0 12/02/22 11:23 Pain Level 0 12/02/22 11:23 Comment RN infomred of BP 12/02/22 07:26 Intake & Output 12/01/22 12/02/22 12/02/22 23:59 11:59 23:59 Intake Total 600 / 600 Output Total 600 / 900 300 / 900 Balance -600 / -300 300 / -300 Weight 61.689 kg 61.6 kg Intake: Oral 600 / 600 Output: Urine 600 / 900 300 / 900 Other: Urine Color Pale Yellow Urine Appearance Clear Clear Stool Size Small Stool Characteristics Hard Voiding Methods Toilet Toilet Data Completed and Pending Labs on day of discharge: Labs from last 24 hours 12/02/22 12/02/22 12/02/22 06:10 06:10 01:13 WBC 3.65 L RBC 4.16 Hgb 12.9 Hct 37.9 MCV 91 MCH 31.0 MCHC 34.0 RDW 13.2 Plt Count 250 MPV 9.2 Immature Gran % 0.0 Neutrophils % 53.1 Lymphocytes % 25.5 Monocytes % 14.2 Eosinophils % 5.8 Basophils % 1.4 Nucleated RBC % 0.0 Absolute Neutrophils 1.94 Absolute Lymphocytes 0.93 L Absolute Monocytes 0.52 Absolute Eosinophils 0.21 Absolute Basophils 0.05 Sodium 140 Potassium 3.7 Chloride 106 Carbon Dioxide 26.8 Anion Gap 7.2 BUN 11 Creatinine 0.7 Est GFR (CKD-EPI 2020) 91.83 Glucose 92 Calcium 8.5 Magnesium 2.1 Creatine Kinase Troponin I < 50 Cancelled Triglycerides 107 Total Cholesterol 186 LDL Cholesterol, Calc 80 HDL Cholesterol 85 12/01/22 12/01/22 12/01/22 22:13 20:13 17:24 WBC 4.33 L RBC 4.06 Hgb 12.6 Hct 36.9 MCV 91 MCH 31.0 MCHC 34.1 RDW 13.1 Plt Count 268 MPV 9.5 Immature Gran % 0.2 Neutrophils % 53.8 Lymphocytes % 27.0 Monocytes % 13.2 Eosinophils % 4.6 Basophils % 1.2 Nucleated RBC % 0.0 Absolute Neutrophils 2.33 Absolute Lymphocytes 1.17 L Absolute Monocytes 0.57 Absolute Eosinophils 0.20 Absolute Basophils 0.05 Sodium Potassium Chloride Carbon Dioxide Anion Gap BUN Creatinine Est GFR (CKD-EPI 2020) Glucose Calcium Magnesium Creatine Kinase Troponin I Cancelled < 50 Triglycerides Total Cholesterol LDL Cholesterol, Calc HDL Cholesterol 12/01/22 17:24 WBC RBC Hgb Hct MCV MCH MCHC RDW Plt Count MPV Immature Gran % Neutrophils % Lymphocytes % Monocytes % Eosinophils % Basophils % Nucleated RBC % Absolute Neutrophils Absolute Lymphocytes Absolute Monocytes Absolute Eosinophils Absolute Basophils Sodium 143 Potassium 3.7 Chloride 107 Carbon Dioxide 28.5 Anion Gap 7.5 BUN 13 Creatinine 0.7 Est GFR (CKD-EPI 2020) 91.83 Glucose 91 Calcium 9.0 Magnesium Creatine Kinase 62 Troponin I < 50 Triglycerides Total Cholesterol LDL Cholesterol, Calc HDL Cholesterol PFSH All Active Problems (Updated 12/03/22 @ 00:05 by KARL YU) Dyspnea on exertion (Acute) Leukopenia (Acute) Left arm pain (Acute) Hx of unstable angina (Chronic) Pulmonary nodule (Acute) Chronic pruritus (Acute) Generalized pruritus (Acute) Pruritus, genital (Acute) Rib pain on right side (Acute) Impacted cerumen, right ear (Acute) Right knee pain (Acute) Skin lesion (Acute) ? 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; s/p partial lobectomy RLL, repeat CT Scan in 6 m Conductive hearing loss, external ear (Acute) Impacted cerumen, left ear (Acute) Cough (Acute) Tick bite (Acute) Subclavian steal syndrome of left subclavian artery (Acute) Carotid stenosis, right (Acute) Vision changes (Acute) Abnormal mammogram (Acute) Dizziness (Acute) Tachycardia (Acute) Left arm numbness (Acute) Hip pain, right (Acute) DJD (degenerative joint disease), cervical (Acute) TOS (thoracic outlet syndrome) (Acute) Scalenus anticus syndrome (Acute) Annual physical exam (Acute) Neck pain (Acute) Exercise-induced asthma (Chronic) Low back pain (Chronic 01/13/16) Subclavian steal syndrome (Chronic) BP always on Right side NO MARSH if bypass needed Coronary arteriosclerosis (Chronic 11/16/13) stent placed RCA 10/16 Essential hypertension (Chronic) Hearing problem (Chronic) Hyperlipidemia (Chronic 09/11/08) borderline Non-alcoholic fatty liver disease (Chronic) Osteopenia (Chronic 06/03/04) T= -1.7; -0.8; -1.4 Medical History Asymmetrical sensorineural hearing loss Breast lump Breast lump Coronary arteriosclerosis Essential hypertension External carotid artery stenosis (~06/03/18) Fracture of head of radius (09/29/14) Fracture of metatarsal bone Hyperlipidemia Non-alcoholic fatty liver disease Osteopenia Palpitations Palpitations (12/19/13) Recurrent falls (04/14/16) Sebaceous cyst Sinusitis Surgical History section x 2 Cholecystectomy (~2000) endometrial biopsy (~2003) negative History of section History of unilateral oophorectomy Hysterectomy, Laproscopic (~2006) Oophrectomy, unilateral (~1994) ovarian cyst Status post cholecystectomy Status post laparoscopic hysterectomy Stent placement 10/2013 Family History Mother Diabetes Essential hypertension Personal history of malignant neoplasm Breast Heart disease Hyperlipidemia Stroke Father , age 75 Alcohol abuse Chronic obstructive lung disease Sister Diabetes Essential hypertension Hyperlipidemia Chronic obstructive lung disease Breast cancer Sister Essential hypertension Asthma Breast cancer Brother , age 58 Heart disease [place] Daughter Breast cancer Brother Hyperlipidemia Asthma Hypertension Sister Asthma Son Diabetes Social History Smoking/Tobacco Use Status: Former Tobacco Use tobacco type: cigarettes Quit Date: 07/05/85 Tobacco: How many years used: 15 Second Hand Exposure: Yes Smoking risk assessment performed?: Yes Alcohol Intake: current Alcohol Intake frequency: holidays/special occasions only Alcohol type: wine Drug use: Never Substance use type: does not use Caregiver/Support person: No Household members: other Details: Sister Housing: house Communication Needs: None Do you need help understanding health information?: Never Pets and animals: No Sexually active: No Do you think of yourself as: straight/heterosexual Current gender identity: female What is your relationship status?: How often do you talk on the phone with friends or family?: three or more times per week How often do you get together with friends or relatives?: three or more times per week How often do you attend congregational or faith services?: decline to answer Do you belong to any clubs or organized social groups?: no Panel score (0-1 are the most socially isolated patients): 1 What type of physical activity do you participate in: walking, bicycling and other Details: Riding Duration: 15-30 minutes/day Frequency: 1-2 times per week Niurka/Adventist: Orthodoxy Special niurka needs: No Seatbelt use: always Helmet use: Yes Helmet use: always Drive 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
--- NOTE | 2022-12-02 16:56 | PDOC.CMIN ---
Date of service: 12/02/22 Time of Service: 16:56 Care Management Initial Assmt Initial Assessment REASON FOR HOSPITALIZATION:: Possible angina PREVIOUS FUNCTIONAL STATUS/SOCIAL/FAMILY SUPPORTS:: Kisha lives in [place]. She has a son and a daughter, who both live closeby, and are supportive. She has other close family and friends who are supportive as well. She is independent at baseline. CURRENT FUNCTIONAL STATUS:: Kisha was sitting up in her chair when CM met with her. She stated that she is feeling much better today, and anticipates that she will return home, once her echo results are read. She is comfortable with the plan to return home and have a stress test out patient. She was pleasant and engaged well in conversation. CM will continue to follow. ADVANCE DIRECTIVES:: On file, Ned listed as agent. Lm listed as alternate agent. Has patient been provided with info about the portal/API?: Yes Did the patient sign up for the portal?: Yes CODE STATUS:: Full Code INSURANCE COVERAGE / FINANCIAL ISSUES:: MCR/ [employer] supplement CURRENT HOME/COMMUNITY SERVICES/EQUIPMENT:: none PRIMARY CARE PHYSICIAN:: Eliana Urias POTENTIAL DISCHARGE NEEDS:: Follow up appointments. PATIENT/FAMILY EDUCATION NEEDS:: Review discharge instructions and limitations, discussion of self care needs including ask me three. ANTICIPATED BARRIERS TO DISCHARGE:: None. TRANSPORTATION:: Via private vehicle. PLAN:: Anticipate Kisha will return home once medically cleared. She will drive herself home via private vehicle. She will follow up with her PCP and discharge plan of care. CM will continue to follow. PFSH All Active Problems (Updated 12/02/22 @ 01:54 by Radha Ray MD) Dyspnea on exertion (Acute) Discharge planning issues (Acute) DVT prophylaxis (Acute) Leukopenia (Acute) Left arm pain (Acute) Hx of unstable angina (Chronic) Pulmonary nodule (Acute) Chronic pruritus (Acute) Generalized pruritus (Acute) Pruritus, genital (Acute) Rib pain on right side (Acute) Impacted cerumen, right ear (Acute) Right knee pain (Acute) Skin lesion (Acute) ? 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; s/p partial lobectomy RLL, repeat CT Scan in 6 m Conductive hearing loss, external ear (Acute) Impacted cerumen, left ear (Acute) Cough (Acute) Tick bite (Acute) Subclavian steal syndrome of left subclavian artery (Acute) Carotid stenosis, right (Acute) Vision changes (Acute) Abnormal mammogram (Acute) Dizziness (Acute) Tachycardia (Acute) Left arm numbness (Acute) Hip pain, right (Acute) DJD (degenerative joint disease), cervical (Acute) TOS (thoracic outlet syndrome) (Acute) Scalenus anticus syndrome (Acute) Annual physical exam (Acute) Neck pain (Acute) Exercise-induced asthma (Chronic) Low back pain (Chronic 01/13/16) Subclavian steal syndrome (Chronic) BP always on Right side NO MARSH if bypass needed Coronary arteriosclerosis (Chronic 11/16/13) stent placed RCA 10/16 Essential hypertension (Chronic) Hearing problem (Chronic) Hyperlipidemia (Chronic 09/11/08) borderline Non-alcoholic fatty liver disease (Chronic) Osteopenia (Chronic 06/03/04) T= -1.7; -0.8; -1.4 Medical History Asymmetrical sensorineural hearing loss Breast lump Breast lump Coronary arteriosclerosis Essential hypertension External carotid artery stenosis (~06/03/18) Fracture of head of radius (09/29/14) Fracture of metatarsal bone Hyperlipidemia Non-alcoholic fatty liver disease Osteopenia Palpitations Palpitations (12/19/13) Recurrent falls (04/14/16) Sebaceous cyst Sinusitis Surgical History section x 2 Cholecystectomy (~2000) endometrial biopsy (~2003) negative History of section History of unilateral oophorectomy Hysterectomy, Laproscopic (~2006) Oophrectomy, unilateral (~1994) ovarian cyst Status post cholecystectomy Status post laparoscopic hysterectomy Stent placement 10/2013 Family History Mother Diabetes Essential hypertension Personal history of malignant neoplasm Breast Heart disease Hyperlipidemia Stroke Father , age 75 Alcohol abuse Chronic obstructive lung disease Sister Diabetes Essential hypertension Hyperlipidemia Chronic obstructive lung disease Breast cancer Sister Essential hypertension Asthma Breast cancer Brother , age 58 Heart disease [place] Daughter Breast cancer Brother Hyperlipidemia Asthma Hypertension Sister Asthma Son Diabetes Social History Smoking/Tobacco Use Status: Former Tobacco Use tobacco type: cigarettes Quit Date: 07/05/85 Tobacco: How many years used: 15 Second Hand Exposure: Yes Smoking risk assessment performed?: Yes Alcohol Intake: current Alcohol Intake frequency: holidays/special occasions only Alcohol type: wine Drug use: Never Substance use type: does not use Caregiver/Support person: No Household members: other Details: Sister Housing: house Communication Needs: None Do you need help understanding health information?: Never Pets and animals: No Sexually active: No Do you think of yourself as: straight/heterosexual Current gender identity: female What is your relationship status?: How often do you talk on the phone with friends or family?: three or more times per week How often do you get together with friends or relatives?: three or more times per week How often do you attend mormon or scientology services?: decline to answer Do you belong to any clubs or organized social groups?: no Panel score (0-1 are the most socially isolated patients): 1 What type of physical activity do you participate in: walking, bicycling and other Details: Riding Duration: 15-30 minutes/day Frequency: 1-2 times per week Niurka/Shinto: Orthodoxy Special niurka needs: No Seatbelt use: always Helmet use: Yes Helmet use: always Drive intox or ride w/intox 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
--- NOTE | 2022-12-02 17:01 | PDOC.CMDIS ---
Date of service: 12/02/22 Time of Service: 17:02 LACE Index Scoring Tool Questions: Length of Stay (in days): 1 Was the patient admitted via the E.D.?: Yes Comorbidities: Any Tumor E.D. Visits: 1 Answers: Total Score: 7 Risk of Readmission: Low Risk Care Management Discharge Plan Reason for Hospitalization: Possible angina Discharge Plan: Kisha returned home today with no new services. She will have a stress test outpatient. She will drive herself home via private vehicle, and will follow up with her PCP and discharge plan of care. She is happy to be going home. Patient/Family Education Needs: Review discharge instructions and limitations, discussion of self care needs including ask me three and goals of care.
== END 2022-12-02 15:00 | disposition home or self-care (01) ==
LOC: ER 12-02 00:46 → MS 12-02 00:48
PROVIDERS: Emergency Medicine; Admitting Provider Internal Medicine; Emergency Provider Student in an Organized Health Care Education/Training Program; PCP Family Medicine; Visit Provider Internal Medicine
DX: M79.602 Pain in left arm (principal); I25.110 Atherosclerotic heart disease of native coronary artery with unstable angina pectoris; I10 Essential (primary) hypertension; R42 Dizziness and giddiness; R06.09 Other forms of dyspnea; R91.1 Solitary pulmonary nodule; Z95.5 Presence of coronary angioplasty implant and graft; R20.2 Paresthesia of skin; I70.0 Atherosclerosis of aorta; R94.31 Abnormal electrocardiogram [ECG] [EKG]; I35.0 Nonrheumatic aortic (valve) stenosis; Z90.2 Acquired absence of lung [part of]; R53.1 Weakness; H53.8 Other visual disturbances; E78.5 Hyperlipidemia, unspecified; K76.0 Fatty (change of) liver, not elsewhere classified; D72.819 Decreased white blood cell count, unspecified
CPT/HCPCS: 36415; 71275; 80048; 80061; 82550; 93005; 99285; 83735; 84484; 85025; 93010; 93306; 99223; 99238; G0378; J3490

== ENCOUNTER 2022-12-10 01:11 | Outpatient (CLI) | payer MEDICARE, SELFPAY ==
--- NOTE | 2022-12-10 | DI.NM_ITS ---
APPROVED REPORT Exam: Exercise Treadmill Patient Location: Out-Patient Room/Bed: Stress Nurse: Rhoda Bear RN Ordering Provider:SANJAY TANIYA, Contact Number: [phone] BMI: 25.05 Baseline Rhythm: Sinus Rhythm Comment: PAtient notes hx. of [place] syndrome. States BP was 127/74 at home. Indications: Chest pain, H/O Crescendo Angina. Medical History Medical History: ROYAL, leukopenia, unstable angina, pruritus, carcinoid tumor, R lung s/p lobectomy, c conductive hearing loss, R carotid stenosis, TIA, tachycardia, DJD, thoracic outlet syndrome, subclav zhen steal syndrome, CAD, HTN, HLD, osteopenia Cardiac Medications: Aspirin, atorvastatin Allergies: Hydrocodone, chlorohexidine Cardiac Risk Factors: Famliy hx, HTN, HLD, CVD, former smoker, asthma Previous Cardiac Procedures: Stent RCA 2013, carotid bipass Pretest Chest Pain Characteristics: None Exercise History: Indeterminate, Physically active Physical Disabilities: None Lung Sounds: Clear to auscultation Heart Sounds: Regular Stress Test Details Test: Exercise stress testing was performed using a Haseeb protocol. Nuclear Acquisition: Rest Tc-99m/Stress Tc-99m 1 day Rest Isotope: Tc-99m Sestamibi. Dose: 10.9 Date: 12/10/2022 Injection Time: 1110 Stress Isotope: Tc-99m Sestamibi. Dose: 32.4 Date: 12/10/2022 Injection Time: 1240 HR Resting HR Supine: 63 bpm Max Heart Rate (APMHR): 148.896045 bpm Resting HR Standin bpm Target HR (85% APMHR): 125.677068 bpm Max HR Achieved: 141 bpm % of APMHR: 95.27 Recovery HR: 73 bpm HR response to stress: Normal HR response to stress BP Resting BP Supine: 182/82 mmHg Resting BP Standin/80 mmHg Max BP: 212/72 mmHg Recovery BP: 170/78 mmHg BP response to stress: Abnormal hypertensive response to stress. ECG Resting ECG: Sinus Rhythm Ectopy: None Stress ECG: Sinus Tachycardia ST Change: No significant ST segment changes noted Arrhythmia: None Recovery ECG: Sinus Rhythm Recovery ST Change: No significant ST segment changes noted Recovery Arrhythmia: None Clinical Reason for Termination: Target HR Achieved, , Dyspnea Stress Symptoms: Mild dyspnea Exercise duration: 7 min33 sec Highest Stage Reached: Stage 3: 3.4 mph at 14% grade. Exercise capacity: 7.2 METs Angina Score: None Persaud Treadmill Score: 7.2 Rate Pressure Product: 89925 Stress ECG Conclusion 1. Resting electrocardiogram showed voltage for left ventricular hypertrophy 2. Patient exercised on the Haseeb protocol and completed a workload of 7.2 METS 3. Normal heart rate and blood pressure response to exercise. Patient achieved 95% of predicted hear t rate for age 4. There was no electrocardiographic evidence of myocardial ischemia 5. There were no significant dysrhythmias 6. See MPI report Persaud Treadmill Score is 7.2 which is Low risk. Stress Test Summary STAGE Time (mins) Speed (mph) Grade (%) HR BP SpO2 SYMPTOMS METS Supine 63 182/82 97 Standing 67 190/80 97 1 3 1.7 10 119 4.5 2 6 2.5 12 128 7 1 min recovery 119 212/72 97 3 min recovery 75 212/72 6 min recovery 74 185/72 97 9 min recovery 73 170/78 97 MPI Conclusion Myocardial perfusion is normal. There is no ischemia or evidence of prior infarction EF is 65% with normal wall motion Radiologist Interpretation Radiologist Interpretation by: Federico Schaffer MD Interpretation Date/Time: 12/10/2022 16:36:29
== END 2022-12-10 01:31 ==
LOC: DI 01:12
PROVIDERS: PCP Family Medicine; Visit Provider Nurse Practitioner Acute Care
DX: R07.9 Chest pain, unspecified (principal)
CPT/HCPCS: 78452; 93016; 93018; 93017

== ENCOUNTER 2022-12-16 03:28 | Outpatient (CLI) | payer MEDICARE, SELFPAY ==
[2022-12-16 15:01] LABS: Vitamin D 25 Total 48.2 ng/mL (30-100)
== END 2022-12-16 03:29 | disposition home or self-care (01) ==
LOC: LBO 03:29
PROVIDERS: PCP Family Medicine; Visit Provider Family Medicine
DX: M85.80 Other specified disorders of bone density and structure, unspecified site (principal)
CPT/HCPCS: 36415; 82306

== ENCOUNTER 2023-01-30 04:57 | Emergency (ER) | payer MEDICARE, SELFPAY ==
[2023-01-30 05:00] VITALS: BP 223/91; PULSE 86; RESP 18; O2SAT 97
--- NOTE | 2023-01-30 05:13 | ED.GENADUL_ITS ---
Discharge Plan Disposition Patient Disposition: Home Condition: Good Discharge Details Clinical Impression: Rash Primary Care Provider: Eliana Urias ED Provider: Stephen Ch Home Meds and New Rx's Prescriptions: New prednisone 20 mg tablet 20 mg PO DAILY Qty: 42 0RF Rx Instructions: Take 3 tablets daily for 7 days, followed by 2 tablets daily for 7 days, followed by 1 tablet daily for 7 days. loratadine 10 mg capsule 10 mg PO DAILY Qty: 14 0RF Discontinued prednisone 20 mg tablet See Rx Instructions PO DAILY Qty: 11 0RF Rx Instructions: 2 tabs daily for 3 days; 1 tab daily for 3 days; 0.5 tab daily for 4 days No Action calcium carbonate-vitamin D3 [Calcium 600 with Vitamin D3] 600 mg-12.5 mcg (500 unit) capsule See Rx Instructions PO .every other day Hold Instructions: Changed by Provider Rx Instructions: 1 capsule daily orally EVERY OTHER DAY; zg-cj-uswg-FA-Ca carb-vit K 18 mg iron-400 mcg-500 mg tablet 1 tab PO DAILY Hold Instructions: Changed by Provider cholecalciferol (vitamin D3) 25 mcg (1,000 unit) capsule 25 mcg PO DAILY Hold Instructions: Adverse Reaction atorvastatin 20 mg tablet 20 mg PO DAILY Qty: 90 5RF Hold Instructions: Changed by Provider nitroglycerin 0.3 mg tablet, sublingual 0.3 mg sublingual Q5M PRN (Reason: chest pain) Qty: 25 4RF Rx Instructions: do not exceed 3 doses per episode, then call 911 clopidogrel 75 mg tablet 75 mg PO DAILY Qty: 90 6RF albuterol sulfate [Ventolin HFA] 90 mcg/actuation HFA aerosol inhaler 2 puff inhalation Q6H PRN (Reason: shortness of breath or wheezing) Qty: 6.7 7RF Discharge Instructions Instructions: Acute Rash (ED) Additional Instructions: At this time there is no evidence of an acute life-threatening rash. It is not overly clear if the current rash you have is secondary to an antigen exposure in your environment, your Plavix, or some other source. We will cautiously progress by prolonging your course of steroids. Please take loratadine every day as directed as well. These of both been sent to your pharmacy on file. Please continue taking the Plavix for the time being as an antiplatelet agent is very important for your other medical comorbidities. If you notice any worsening of your symptoms, or any new symptoms such as vomiting, diarrhea, fever, chills, shortness of breath, chest pain, numbness, weakness, or fainting , please return immediately to the emergency department for reevaluation. Please follow up with your primary care provider as soon as possible for reassessment and reevaluation. As always, it was a pleasure participating in your medical care today. Referrals: Eliana Urias MD, [place] [Primary Care Provider] - Medical Decision Making 72-year-old female with a past medical history of coronary artery disease, subclavian steal syndrome, previous TIA, thoracic outlet syndrome, reactive airway disease, high cholesterol, presents today for evaluation of rash. Patient in the past has had a rash to what was suspected to be aspirin or antiplatelet agents. She was recently seen about 5 days ago when she had a return of the rash, she was started on a short course of steroids, taken off the aspirin and transition to Plavix. Patient states that the rash did improve at the beginning of the steroids, but now has worsened and transitioned into a slightly different type of rash present over the chest, under the bra strap, and on her face. She admits to itchiness in all these locations. She states that she is only using perfume free soaps detergents. She denies any new medications otherwise. She denies any nausea vomiting or diarrhea. No lesions on her mouth hands or feet. No other complaints at this time. She has not taken any Benadryl or loratadine. Patient's physical exam demonstrates a mild diffuse nonraised nonedematous none warm redness under the breasts around the bra strap, the patient's upper chest, and her cheeks. No well-defined border. It is blanching. No other area of rash. Minimal hives in the right AC joint and left AC joint. Negative Nikolsky sign. No large vesicles or bulla. No palpable purpura. No oral lesions. No mucosal lesions. No evidence of severe cellulitis. No evidence of vaccine preventable rash. Uncertain as if this is secondary to the Plavix, very mild vasculitis, or an allergic reaction from another substance. Component of it does appear similar to her mild heat rash. At this time there is no evidence of anaphylaxis. With her history of coronary artery disease I feel it would be unwise to take her off of all antiplatelet agents. Alternatively, we will recommend loratadine and a long course of mild steroids as previous steroids he certainly seem to have some benefit, although now she is in the down titration stage. We will get basic blood work to make sure there is no evidence of thrombocytopenia. No current clinical evidence of staph scalded skin syndrome, erythema multiforme, erythema migrans, toxic epidermal necrolysis, Guzman-Chema syndrome, Kawasaki-like rash, meningococcemia, pemphigus vulgaris, or necrotizing fasciitis. After work-up is normal with no evidence of thrombocytopenia. We will continue with steroids and antihistamines. Recommend close follow-up with PCP. Discussed red flags for which to return. I have extensively reviewed the treatment plan and discharge instructions with the patient. I have addressed all patient concerns at this time. The patient was made aware of what symptoms to monitor for that would warrant a return to the emergency department. Discussed the plan with the patient, they demonstrate verbal understanding and agreement with our assessment and plan at this time. The documentation in this chart was dictated using [employer] dictation software. Please excuse any dictation errors. HPI General Date/Time Provider Initiated Documentation: 01/30/23 05:00 . HPI Narrative: 72-year-old female with a past medical history of coronary artery disease, subclavian steal syndrome, previous TIA, thoracic outlet syndrome, reactive airway disease, high cholesterol, presents today for evaluation of rash. Patient in the past has had a rash to what was suspected to be aspirin or antiplatelet agents. She was recently seen about 5 days ago when she had a return of the rash, she was started on a short course of steroids, taken off the aspirin and transition to Plavix. Patient states that the rash did improve at the beginning of the steroids, but now has worsened and transitioned into a slightly different type of rash present over the chest, under the bra strap, and on her face. She admits to itchiness in all these locations. She states that she is only using perfume free soaps detergents. She denies any new medications otherwise. She denies any nausea vomiting or diarrhea. No lesions on her mouth hands or feet. No other complaints at this time. She has not taken any Benadryl or loratadine. Related Data Home Medications Medication Instructions Recorded Confirmed albuterol sulfate 90 mcg/actuation 2 puff inhalation Q6H PRN 07/10/20 01/30/23 aerosol inhaler (Ventolin HFA) shortness of breath or wheezing #6.7 grams calcium carbonate 600 mg-vitamin See Rx Instructions PO .every 12/23/21 01/25/23 D3 12.5 mcg (500 unit) capsule other day (Calcium 600 with Vitamin D3) cholecalciferol (vitamin D3) 25 25 mcg PO DAILY 06/01/22 01/25/23 mcg (1,000 unit) capsule lpmoyayp-ris-egjt-FA-Ca carb-vit K 1 tab PO DAILY 06/01/22 01/25/23 18 mg iron-400 mcg-500 mg tablet atorvastatin 20 mg tablet 20 mg PO DAILY #90 tabs 12/14/22 01/30/23 nitroglycerin 0.3 mg sublingual 0.3 mg sublingual Q5M PRN chest 12/14/22 01/30/23 tablet pain #25 tabs clopidogrel 75 mg tablet 75 mg PO DAILY #90 tabs 01/25/23 01/30/23 loratadine 10 mg capsule 10 mg PO DAILY #14 caps 01/30/23 prednisone 20 mg tablet 20 mg PO DAILY #42 tabs 01/30/23 Previous Rx's Medication Instructions Recorded albuterol sulfate 90 mcg/actuation 2 puff inhalation Q6H PRN 07/10/20 aerosol inhaler (Ventolin HFA) shortness of breath or wheezing #6.7 grams atorvastatin 20 mg tablet 20 mg PO DAILY #90 tabs 12/14/22 nitroglycerin 0.3 mg sublingual 0.3 mg sublingual Q5M PRN chest 12/14/22 tablet pain #25 tabs clopidogrel 75 mg tablet 75 mg PO DAILY #90 tabs 01/25/23 loratadine 10 mg capsule 10 mg PO DAILY #14 caps 01/30/23 prednisone 20 mg tablet 20 mg PO DAILY #42 tabs 01/30/23 Allergies Allergy/AdvReac Type Severity Reaction Status Date / Time hydrocodone Allergy Unknown RASH Verified 01/30/23 05:13 chlorhexidine Allergy Burning Verified 01/30/23 05:13 skin aspirin AdvReac Mild RASH/ITCHIN Verified 01/30/23 05:13 G General Stated Complaint: Allergic DEANNA: 4 Review of Systems All systems reviewed & are unremarkable except as noted in HPI and below PFSH All Active Problems (Updated 01/30/23 @ 05:19 by Stephen Ch DO) Rash (Acute) Rash and nonspecific skin eruption (Acute) Dyspnea on exertion (Acute) Leukopenia (Acute) Left arm pain (Acute) Hx of unstable angina (Chronic) Pulmonary nodule (Acute) Chronic pruritus (Acute) Generalized pruritus (Acute) Pruritus, genital (Acute) Rib pain on right side (Acute) Impacted cerumen, right ear (Acute) Right knee pain (Acute) Skin lesion (Acute) ? 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; s/p partial lobectomy RLL, repeat CT Scan in 6 m Conductive hearing loss, external ear (Acute) Impacted cerumen, left ear (Acute) Cough (Acute) Tick bite (Acute) Subclavian steal syndrome of left subclavian artery (Acute) Carotid stenosis, right (Acute) Vision changes (Acute) Abnormal mammogram (Acute) Dizziness (Acute) Tachycardia (Acute) Left arm numbness (Acute) Hip pain, right (Acute) DJD (degenerative joint disease), cervical (Acute) TOS (thoracic outlet syndrome) (Acute) Scalenus anticus syndrome (Acute) Annual physical exam (Acute) Neck pain (Acute) Exercise-induced asthma (Chronic) Low back pain (Chronic 01/13/16) Subclavian steal syndrome (Chronic) BP always on Right side NO MARSH if bypass needed Coronary arteriosclerosis (Chronic 11/16/13) stent placed RCA 10/16 Essential hypertension (Chronic) Hearing problem (Chronic) Hyperlipidemia (Chronic 09/11/08) borderline Non-alcoholic fatty liver disease (Chronic) Osteopenia (Chronic 06/03/04) T= -1.7; -0.8; -1.4 Medical History Asymmetrical sensorineural hearing loss Breast lump Breast lump Coronary arteriosclerosis Essential hypertension External carotid artery stenosis (~06/03/18) Fracture of head of radius (09/29/14) Fracture of metatarsal bone Hyperlipidemia Non-alcoholic fatty liver disease Osteopenia Palpitations Palpitations (12/19/13) Recurrent falls (04/14/16) Sebaceous cyst Sinusitis Surgical History section x 2 Cholecystectomy (~2000) endometrial biopsy (~2003) negative History of section History of unilateral oophorectomy Hysterectomy, Laproscopic (~2006) Oophrectomy, unilateral (~1994) ovarian cyst Status post cholecystectomy Status post laparoscopic hysterectomy Stent placement 10/2013 Family History Mother Diabetes Essential hypertension Personal history of malignant neoplasm Breast Heart disease Hyperlipidemia Stroke Father , age 75 Alcohol abuse Chronic obstructive lung disease Sister Diabetes Essential hypertension Hyperlipidemia Chronic obstructive lung disease Breast cancer Sister Essential hypertension Asthma Breast cancer Brother , age 58 Heart disease [place] Daughter Breast cancer Brother Hyperlipidemia Asthma Hypertension Sister Asthma Son Diabetes Social History Smoking/Tobacco Use Status: Former Tobacco Use tobacco type: cigarettes Quit Date: 07/05/85 Tobacco: How many years used: 15 Second Hand Exposure: Yes Smoking risk assessment performed?: Yes Alcohol Intake: current Alcohol Intake frequency: holidays/special occasions only Alcohol type: wine Drug use: Never Substance use type: does not use Caregiver/Support person: No Household members: other Details: Sister Housing: house Communication Needs: None Do you need help understanding health information?: Never Pets and animals: No Sexually active: No Do you think of yourself as: straight/heterosexual Current gender identity: female What is your relationship status?: How often do you talk on the phone with friends or family?: three or more times per week How often do you get together with friends or relatives?: three or more times per week How often do you attend latter-day or denominational services?: decline to answer Do you belong to any clubs or organized social groups?: no Panel score (0-1 are the most socially isolated patients): 1 What type of physical activity do you participate in: walking, bicycling and other Details: Riding Duration: 15-30 minutes/day Frequency: 1-2 times per week Niurka/Gnosticism: Mandaen Special niurka needs: No Seatbelt use: always Helmet use: Yes Helmet use: always Drive intox or ride w/intox cdl truck driver: No Do you feel safe at home: Yes Do you feel safe in your relationship?: Yes Exam Narrative Exam Narrative: 1.Const: Well-nourished, Well-developed, appearing stated age 2.Eyes: PERRL, no conjunctival injection, and symmetrical lids. 3.ENT: Atraumatic external nose and ears. Moist MM. Neck: Symmetric, trachea midline, No thyromegaly. 4.CVS: +S1/S2, No murmurs or gallops. Peripheral pulses 2+ and equal in all extremities. Brisk capillary refill in all extremities. 5.RESP: Unlabored respiratory effort. Clear to auscultation bilaterally. No wheezes rales or rhonchi 6.GI: Soft, Nontender/Nondistended, No hepatosplenomegaly. No guarding or rebound. 7.MSK: Normocephalic/Atraumatic, Extremities w/o deformity or ttp No cyanosis or clubbing, Normal movement of all extremities 8.Skin: Mild diffuse nonraised nonedematous none warm redness under the breasts around the bra strap, the patient's upper chest, and her cheeks. No well- defined border. It is blanching. No other area of rash. Minimal hives in the right AC joint and left AC joint. Negative Nikolsky sign. No large vesicles or bulla. No palpable purpura. No oral lesions. No mucosal lesions. No evidence of severe cellulitis. No evidence of vaccine preventable rash. 9.Neuro: services executive II-XII grossly intact. Sensation grossly intact, no focal neurologic deficits. 10.Psych: (AAO) x3. Appropriate mood and affect Course Vital Signs Vital signs: Vital Signs Pulse 86 01/30/23 05:00 Respiratory Rate 18 01/30/23 05:00 Blood Pressure 223/91 H 01/30/23 05:00 Pulse Oximetry 97 01/30/23 05:00 Pulse 86 01/30/23 05:00 Respiratory Rate 18 01/30/23 05:00 Respiratory Effort Normal, Non-Labored 01/30/23 05:06 Respiratory Pattern Normal 01/30/23 05:06 Blood Pressure 223/91 H 01/30/23 05:00 Blood Pressure Position Supine 01/30/23 05:00 Pulse Oximetry 97 01/30/23 05:00 Oxygen Delivery Method Room Air 01/30/23 05:00 Oxygen Flow Rate 0 01/30/23 05:00 PAWSS Have you Been Recently Intoxicated or Drunk Within the Last 30 days?: No Have you Ever Experienced Previous Episodes of Alcohol Withdrawal?: No Have you ever Experienced Withdrawal Seizures?: No Have you ever Experienced Delirium Tremens(DT)s?: No Have you ever undergone Alcohol Rehabilitation Treatment (i.e, inpt ot ou tpatient treatment programs)?: No Have you ever Experienced Blackouts?: No Have you ever Combined Alcohol with other Downers within the last 90 days?: No Have you ever Combined Alcohol with any other Substance of Abuse during the last 90 days?: No Positive Blood Alcohol level on Presentation? [PCS.BAL]: No Evidence of Increased Autonomic Activity (i.e. HR>120, tremor, sweating, agitation, nausea)?: No Result: 0
[2023-01-30 05:18] LABS: Absolute Basophil Count 0.06 10^3/uL (0.0-0.2); Absolute Eosinophil Count 0.36 10^3/uL (0.0-0.7); Absolute Lymphocyte Count 2.04 10^3/uL (1.2-3.4); Absolute Monocyte Count 0.65 10^3/uL (0.1-0.8); Basophils % 1.1; Eosinophils % 6.8; HCT 41.8 % (36.0-46.0); HGB 13.9 g/dL (11.2-15.7); Lymphocytes % 38.4; MCH 29.7 pg (27.0-33.0); MCHC 33.3 % (32.0-36.0); MCV 89 fL (80-95); MPV 9.7 fL (8.0-11.0); Monocytes % 12.2; Neutrophils % 41.5; Platelet Count 284 10^3/uL (130-400); RBC 4.68 10^6/uL (3.93-5.22); RDW 12.8 % (11.7-14.6); RDW-SD 41.8 fL; WBC 5.31 10^3/uL (4.4-10.8)
[2023-01-30] MEDS: methylPREDNISolone SUCC 125 MG VIAL IVP (05:19)
[2023-01-30] MEDS: Loratidine 10 MG TAB PO (05:19)
[2023-01-30 05:36] VITALS: BP 169/67
== END 2023-01-30 05:38 | disposition home or self-care (01) ==
PROVIDERS: Emergency Provider Student in an Organized Health Care Education/Training Program; PCP Family Medicine
DX: R21 Rash and other nonspecific skin eruption (principal); I25.10 Atherosclerotic heart disease of native coronary artery without angina pectoris; E78.5 Hyperlipidemia, unspecified; I10 Essential (primary) hypertension; Z86.73 Personal history of transient ischemic attack (TIA), and cerebral infarction without residual deficits; Z79.02 Long term (current) use of antithrombotics/antiplatelets; Z95.5 Presence of coronary angioplasty implant and graft; Z87.891 Personal history of nicotine dependence
CPT/HCPCS: 36415; 99283; 85025; J2930

== ENCOUNTER 2023-02-05 16:06 | Outpatient (CLI) | payer MEDICARE, SELFPAY ==
[2023-02-05 14:14] LABS: Abs Immature Grans 0.01 10^3/uL (0.0-0.06); Absolute Basophil Count 0.05 10^3/uL (0.0-0.2); Absolute Eosinophil Count 0.28 10^3/uL (0.0-0.7); Absolute Lymphocyte Count 0.98 10^3/uL (1.2-3.4); Absolute Monocyte Count 0.58 10^3/uL (0.1-0.8); Absolute Neutrophil Count 4.79 10^3/uL (1.2-6.7); Basophils % 0.7; Eosinophils % 4.2; HCT 42.6 % (36.0-46.0); HGB 14.3 g/dL (11.2-15.7); Immature Grans % 0.1; Lymphocytes % 14.6; MCH 30.2 pg (27.0-33.0); MCHC 33.6 % (32.0-36.0); MCV 90 fL (80-95); MPV 9.6 fL (8.0-11.0); Monocytes % 8.7; Neutrophils % 71.7; Platelet Count 288 10^3/uL (130-400); RBC 4.74 10^6/uL (3.93-5.22); RDW 12.5 % (11.7-14.6); RDW-SD 41.6 fL; WBC 6.69 10^3/uL (4.4-10.8)
[2023-02-05 14:16] LABS: ESR 17 mm/hr (0-30)
[2023-02-05 14:42] LABS: ALT 28 U/L (14-59); AST 7 U/L (15-37); Albumin 3.8 g/dL (3.4-5.0); Alkaline Phosphatase 77 U/L (46-116); Anion Gap 7.6 mmol/L (3-11); BUN 15 mg/dL (7-18); Bilirubin, Total 0.4 mg/dL (0.2-1.0); C-Reactive Protein 0.33 mg/dL (0.0-0.3); CO2 26.4 mmol/L (21.0-32.0); CREATININE 0.8 mg/dL (0.55-1.02); Calcium 9.3 mg/dL (8.5-10.1); Chloride 104 mmol/L (98-107); Estimated GFR 78.24 (mL/min/1.73m2); Glucose 98 mg/dL (74-106); Potassium 4.1 mmol/L (3.5-5.1); Sodium 138 mmol/L (136-145); Total Protein 7.1 g/dL (6.4-8.2)
== END 2023-02-05 16:07 | disposition home or self-care (01) ==
LOC: LBO 16:06
PROVIDERS: PCP Family Medicine; Visit Provider Family Medicine
DX: R21 Rash and other nonspecific skin eruption (principal)
CPT/HCPCS: 36415; 80053; 85652; 85025; 86140

== ENCOUNTER 2023-02-08 14:48 | Outpatient (CLI) | payer MEDICARE, SELFPAY ==
--- NOTE | 2023-02-08 10:40 | DI.RAD_ITS ---
Exam(s) XR HIP RT COMPLETE AP PELVIS EXAM: XR HIP RT COMPLETE AP PELVIS CLINICAL HISTORY: r hip pain after fall,m25.551. TECHNIQUE: 2D digital imaging was performed. Two views COMPARISON: CR XR HIP RT COMPLETE AP PELVIS from 11/08/2020 FINDINGS: BONES: No acute fracture is present. No bony destructive lesion is seen. JOINTS: Mild narrowing of the left hip joint space. Right hip joint space appears maintained. Minim al periarticular spurring, left greater than right. No dislocation present. SI joints and pubic sy mphysis appear intact SOFT TISSUE: Normal. IMPRESSION: mild degenerative changes of left hip. No acute abnormality. DATA REPOSITORY: RADIATION DOSE DELIVERED:
== END 2023-02-08 15:08 ==
LOC: DI 14:50
PROVIDERS: PCP Family Medicine; Visit Provider Family Medicine
DX: M16.12 Unilateral primary osteoarthritis, left hip (principal)
CPT/HCPCS: 99214; 73502

== ENCOUNTER 2023-04-08 21:26 | Outpatient (REF) | payer MEDICARE, SELFPAY ==
[2023-04-08 21:40] LABS: Source Nasal/Nares
[2023-04-08 22:17] LABS: COVID-19 PCR Negative (Negative)
== END 2023-04-08 21:27 | disposition home or self-care (01) ==
LOC: LBN 21:26
PROVIDERS: PCP Family Medicine; Visit Provider Family Medicine
DX: R05.9 Cough, unspecified (principal); J06.9 Acute upper respiratory infection, unspecified
CPT/HCPCS: 87635

== ENCOUNTER → 2023-05-20 16:32 | Outpatient (CLI) | payer MEDICARE, SELFPAY ==
--- NOTE | 2023-05-20 16:00 | DI.RAD_ITS ---
Exam(s) XR CHEST 2V PA LATERAL EXAM: XR CHEST 2V PA LATERAL CLINICAL HISTORY: evaluate patholgy R06.02 WHEEZING TECHNIQUE: 2D digital imaging was performed. COMPARISON: CT CT THORAX CTA from 12/01/2022 FINDINGS: HEART: Normal size. Aorta: Not dilated. Calcification. PULMONARY VASCULATURE: Normal. LUNGS: Clear. PLEURAL SPACE: No pleural effusion or pneumothorax. BONE:Unremarkable for age. Soft tissues: Surgical clips over left upper chest. IMPRESSION: No acute abnormality. DATA REPOSITORY: RADIATION DOSE DELIVERED:
== END ==
PROVIDERS: PCP Family Medicine; Visit Provider Nurse Practitioner Family
DX: R06.2 Wheezing (principal)
CPT/HCPCS: 71046

== ENCOUNTER 2023-08-19 12:26 | Outpatient (CLI) | payer MEDICARE, SELFPAY ==
[2023-08-19 12:55] LABS: ALT 43 U/L (14-59); AST 12 U/L (15-37); Alkaline Phosphatase 81 U/L (46-116); Anion Gap 8.4 mmol/L (3-11); BUN 15 mg/dL (7-18); Bilirubin, Total 0.4 mg/dL (0.2-1.0); CO2 28.6 mmol/L (21.0-32.0); CREATININE 0.7 mg/dL (0.55-1.02); Calcium 9.9 mg/dL (8.5-10.1); Calculated LDL 63 mg/dL (<100); Chloride 105 mmol/L (98-107); Cholesterol 179 mg/dL (<200); Estimated GFR 91.83 (mL/min/1.73m2); Glucose 98 mg/dL (74-106); HDL Cholesterol 97 mg/dL (40-60); Potassium 4.2 mmol/L (3.5-5.1); Sodium 142 mmol/L (136-145); TSH (W/Ref FT4) 1.98 uIU/mL (0.36-3.74); Total Protein 7.3 g/dL (6.4-8.2); Triglyceride 97 mg/dL (<150)
== END 2023-08-19 12:27 | disposition home or self-care (01) ==
LOC: LBO 12:27
PROVIDERS: PCP Family Medicine; Visit Provider Family Medicine
DX: I10 Essential (primary) hypertension (principal); E03.9 Hypothyroidism, unspecified
CPT/HCPCS: 36415; 80053; 80061; 84443

== ENCOUNTER → 2024-01-26 13:39 | Outpatient (BNVA) | payer MEDICARE, SELFPAY | PROVIDERS: PCP Family Medicine; Referring Provider Family Medicine; Visit Provider Physician Assistant Surgical | DX: J45.909 Unspecified asthma, uncomplicated (principal); R05.3 Chronic cough; Z87.891 Personal history of nicotine dependence | CPT/HCPCS: 99215 ==

== ENCOUNTER 2024-01-26 15:13 | Outpatient (CLI) | payer MEDICARE, SELFPAY ==
[2024-01-28 09:38] LABS: IgE 41 IU/mL (<158)
== END 2024-01-26 15:14 | disposition home or self-care (01) ==
LOC: LBO 15:16
PROVIDERS: PCP Family Medicine; Visit Provider Physician Assistant Surgical
DX: J45.909 Unspecified asthma, uncomplicated (principal); R05.3 Chronic cough
CPT/HCPCS: 36415; 99215; 82785

== ENCOUNTER 2024-02-04 02:43 | Outpatient (CLI) | payer MEDICARE, SELFPAY ==
[2024-02-04] MEDS: Levalbuterol HFA 15 GM INH 4 PUFF IH (11:51)
[2024-02-04] MEDS: Inhaler, Assist Device 1 EACH MC (11:51)
--- NOTE | 2024-02-08 11:17 | W.PFT ---
Date of service: 02/04/24 Time of Service: 10:00 Pulmonary Function Test Result Requesting Provider Lauren Noyola Indications: Asthma Impression Spirometry shows normal FEV1/FVC, FEV1 and FVC. Normal lung volumes with no air trapping. Normal flow volume curve. Normal diffusion. Clinical Correlation therefore is recommended.
== END 2024-02-04 02:44 | disposition home or self-care (01) ==
LOC: RT 02:44
PROVIDERS: PCP Family Medicine; Visit Provider Physician Assistant Surgical
DX: J45.909 Unspecified asthma, uncomplicated (principal)
CPT/HCPCS: 00123; 94060; 94726; 94729

== ENCOUNTER → 2024-02-11 09:27 | Outpatient (BNVA) | payer MEDICARE, SELFPAY | PROVIDERS: PCP Family Medicine; Visit Provider Internal Medicine Cardiovascular Disease | DX: I25.10 Atherosclerotic heart disease of native coronary artery without angina pectoris (principal) | CPT/HCPCS: 99213 ==

== ENCOUNTER 2024-02-23 03:14 | Outpatient (CLI) | payer MEDICARE, SELFPAY ==
[2024-02-23 13:42] LABS: Hemoglobin A1C 6.1 % (<5.7)
[2024-02-24 10:06] LABS: Hepatitis C Ab w Rflx HCV PCR Negative (Negative)
== END 2024-02-23 03:15 | disposition home or self-care (01) ==
PROVIDERS: PCP Family Medicine; Visit Provider Family Medicine
DX: Z11.59 Encounter for screening for other viral diseases (principal); E11.9 Type 2 diabetes mellitus without complications
CPT/HCPCS: 36415; 86803; 83036

== ENCOUNTER 2024-03-08 00:35 | Outpatient (CLI) | payer MEDICARE, SELFPAY ==
--- NOTE | 2024-03-08 07:15 | DI.MAMMO_ITS ---
Exam(s) MAMMO SCREENING EXAM: MAMMO SCREENING CLINICAL HISTORY: screening,z12.39 TECHNIQUE: Bilateral full field digital CC and MLO mammographic images were obtained with 3D tomosyn thesis and utilizing computer aided detection (CAD). COMPARISON: Available for comparison. FINDINGS: Masses/Architectural Distortion: None seen. Microcalcifications: No suspicious pleomorphic-type are seen. Skin Thickening/Nipple Retraction: None. IMPRESSION: 1. No significant interval change with no specific features of malignancy noted. 2. Unless there is more urgent need, screening mammography is recommended, as per [employer] guidelines. BI-RADS Category 1 - Negative Breast Density - Category C - Heterogeneously dense Breast density category C or D implies that the patient has dense breast tissue. Dense breast tissue is very common and is not abnormal but dense breast tissue can make it harder to find cancer on a ma mmogram. Also, dense breast tissue may increase their breast cancer risk. This information about the result of the mammogram report was provided to the patient to raise their awareness. Use this report when you speak with the patient about their risks for breast cancer, which includes their family hist ory. At that time, you may recommend for more screening tests (Ultrasound or MRI) as they might be us eful based on their risk. A negative radiographic report should not delay biopsy if a dominant or clinically suspicious mass is present. Up to ten percent of cancers are not identified on mammography. A negative report may reinforce clinical impression. Adenosis and dense breasts may obscure an underlying neoplasm. False positive reports average 6 to 10%. Patient will receive a letter notifying them of these results.
== END 2024-03-08 00:55 ==
LOC: DI 00:35
PROVIDERS: PCP Family Medicine; Visit Provider Family Medicine
DX: Z12.31 Encounter for screening mammogram for malignant neoplasm of breast (principal)
CPT/HCPCS: 77063; 77067

== ENCOUNTER → 2024-04-26 13:39 | Outpatient (BNVA) | payer MEDICARE, SELFPAY | PROVIDERS: PCP Family Medicine; Referring Provider Family Medicine; Visit Provider Physician Assistant Surgical | DX: J45.909 Unspecified asthma, uncomplicated (principal); R05.3 Chronic cough | CPT/HCPCS: 99214 ==

== ENCOUNTER 2024-07-11 10:54 | Outpatient (CLI) | payer MEDICARE, SELFPAY ==
[2024-07-11 12:54] LABS: HCT 39.4 % (36.0-46.0); HGB 13.5 g/dL (11.2-15.7); MCH 31.3 pg (27.0-33.0); MCHC 34.3 % (32.0-36.0); MCV 91 fL (80-95); MPV 9.8 fL (8.0-11.0); Platelet Count 297 10^3/uL (130-400); RBC 4.32 10^6/uL (3.93-5.22); RDW-SD 43.5 fL; WBC 6.23 10^3/uL (4.4-10.8)
[2024-07-11 13:02] LABS: ALT 38 U/L (14-59); AST 16 U/L (15-37); Albumin 3.6 g/dL (3.4-5.0); Alkaline Phosphatase 89 U/L (46-116); Anion Gap 4.7 mmol/L (3-11); BUN 13 mg/dL (7-18); Bilirubin, Total 0.39 mg/dL (0.2-1.0); CO2 30.3 mmol/L (21.0-32.0); CREATININE 0.7 mg/dL (0.55-1.02); Calcium 9.4 mg/dL (8.5-10.1); Chloride 104 mmol/L (98-107); Estimated GFR 91.26 (mL/min/1.73m2); Glucose 93 mg/dL (74-106); Potassium 4.3 mmol/L (3.5-5.1); Sodium 139 mmol/L (136-145); Total Protein 7.1 g/dL (6.4-8.2)
[2024-07-11 17:24] LABS: Lab Add On Test DONE
[2024-07-11 17:53] LABS: NT-proBNP 91 pg/mL (<300)
== END 2024-07-11 10:55 | disposition home or self-care (01) ==
LOC: LOS 10:54
PROVIDERS: PCP Family Medicine; Referring Provider Family Medicine; Visit Provider Family Medicine
DX: I10 Essential (primary) hypertension (principal); R05.9 Cough, unspecified; J06.9 Acute upper respiratory infection, unspecified; R09.89 Other specified symptoms and signs involving the circulatory and respiratory systems
CPT/HCPCS: 36415; 80053; 85027; 83880

== ENCOUNTER 2024-07-12 10:50 | Outpatient (CLI) | payer MEDICARE, SELFPAY ==
--- NOTE | 2024-07-12 13:05 | DI.RAD_ITS ---
Exam(s) XR CHEST 2V PA LATERAL EXAM: XR CHEST 2V PA LATERAL CLINICAL HISTORY: continued URI, congestion,r09.89 TECHNIQUE: 2D digital imaging was performed of the chest. Two images were obtained. PA and lateral views were obtained. COMPARISON: CR XR CHEST 2V PA LATERAL from 05/20/2023 FINDINGS: MEDIASTINUM: Normal. HEART: Normal. PULMONARY VASCULATURE: Normal. LUNGS: No focal consolidating infiltrates. PLEURAL SPACE: No pleural effusion or pneumothorax. BONE:Within normal limits for the patient's age. OTHER FINDINGS:Normal. IMPRESSION: No acute pulmonary findings. DATA REPOSITORY: RADIATION DOSE DELIVERED:
== END 2024-07-12 11:10 ==
LOC: DI 10:51
PROVIDERS: PCP Family Medicine; Visit Provider Family Medicine
DX: R09.89 Other specified symptoms and signs involving the circulatory and respiratory systems (principal)
CPT/HCPCS: 71046

== ENCOUNTER → 2024-08-21 08:36 | Outpatient (BNVA) | payer MEDICARE, SELFPAY | PROVIDERS: PCP Family Medicine; Referring Provider Family Medicine; Visit Provider Student in an Organized Health Care Education/Training Program | DX: M65.341 Trigger finger, right ring finger (principal); M65.331 Trigger finger, right middle finger | CPT/HCPCS: 99214 ==

== ENCOUNTER 2024-09-20 06:17 | Day surgery (SDC) | payer MEDICARE, SELFPAY ==
[2024-09-20 06:47] VITALS: BP 116/73; PULSE 66; RESP 16; TEMP 36.6; O2SAT 94
--- NOTE | 2024-09-20 07:07 | W.PM.DSUDISC ---
Date of service: 09/20/24 Discharge Plan Disposition Patient Disposition: Home Condition: Good Discharge Details Reason For Visit: RRF, RMF Release Attending Provider: Bharath Stone Primary Care Provider: Eliana Urias Home Meds and New Rx's Prescriptions: New acetaminophen 500 mg tablet 1,000 mg PO TID Qty: 90 0RF Continued lg-zb-vvmb-FA-Ca carb-vit K 18 mg iron-400 mcg-500 mg tablet 1 tab PO DAILY nitroglycerin 0.3 mg tablet, sublingual 0.3 mg sublingual Q5M PRN (Reason: chest pain) Qty: 25 4RF Rx Instructions: do not exceed 3 doses per episode, then call 911 tetanus and diphther. tox (PF) 5 Lf unit- 2 Lf unit/0.5mL suspension 0.5 ml IM ONCE Qty: 0.5 0RF Rx Instructions: as a single dose calcium [calcium citrate] See Rx Instructions PO DIRECTED Rx Instructions: orally as directed; budesonide-formoterol [Symbicort] 160-4.5 mcg/actuation HFA aerosol inhaler 2 puff inhalation BID Qty: 10.2 12RF albuterol sulfate [Ventolin HFA] 90 mcg/actuation HFA aerosol inhaler 2 puff inhalation Q6H PRN (Reason: shortness of breath or wheezing) Qty: 6.7 7RF escitalopram oxalate 5 mg tablet 5 mg PO DAILY Qty: 90 4RF clopidogrel 75 mg tablet 75 mg PO DAILY Qty: 90 3RF atorvastatin 40 mg tablet 40 mg PO DAILY Qty: 90 5RF Discharge Instructions Stand Alone Forms: Chase Schultz Finger Release Referrals: Bharath Stone MD [ [facility] STAFF PHYSICIAN] - Activity:: Activity as Tolerated Remove Dressings/Wound Care:: 48 hours Shower/Bathe:: 48 hours Diet:: As Tolerated Discharge Orders Discharge Orders: Discharge Order (Routine); Ordered 09/20/24 Ordered By: Amari Bynum DS: Diagnosis Discharge Diagnosis (1) Trigger finger, right middle finger: Status: Acute (2) Trigger finger, right ring finger: Status: Acute
[2024-09-20] MEDS: Lidocaine 1% Multi-Dose W/EPI 1/100,000 50 ML VIAL (07:38)
[2024-09-20] MEDS: Sodium Bicarbonate 50 MEQ/50 ML VIAL (07:38)
[2024-09-20 07:55] VITALS: BP 136/54; PULSE 54; RESP 16; TEMP 36.2; O2SAT 97
--- NOTE | 2024-09-20 07:55 | ROE_ITS ---
Operative Note Operative Note PRE-OP DIAGNOSIS: Right Middle and Ring Trigger Fingers POST-OP DIAGNOSIS: same PROCEDURE: Trigger Finger Release - Right Middle and Ring Fingers SURGEON: Bharath tSone ANESTHESIA TYPE: Local By Surgeon Refer to Anesthesia Record ESTIMATED BLOOD LOSS: 0 PATHOLOGY: none sent COMPLICATIONS: None Patient was transported to: same day Patient's condition: stable Indications: I have seen Kisha in clinic for symptoms of a trigger finger. The catching, clicking, locking, and pain limited function. The diagnosis of trigger finger was evident. The symptoms had not responded to conservative measures. I discussed trigger finger release with the patient. I reviewed the risks of the procedure to include, but not limited to, bleeding, infection, pain, stiffness, incomplete release, damage to nerves or vessels, continued catching, recurrence. Despite these risks, the patient elected to proceed. Findings: There was a tightened A1 biju which was released. The flexor tendons were inspected and the patient was able to move the finger without any catching, clicking, or locking. Procedure Description: Kisha was greeted in the preoperative holding area where the correct side was identified and marked. The consent was reviewed with the patient and signed. All questions were answered. She was taken back to the operating room. The patient was placed into the supine position on the operating room table with the right arm on an arm board. All bony prominences were well padded. No prophylactic antibiotics were administered since this was a clean, elective hand surgical case. The right arm was then prepped with Chloraprep and draped in a standard fashion with stockinette and extremity drape. A timeout to confirm correct identity, side and site, procedure, allergies, anesthesia, and medical concerns was performed. The surgical site was marked as a longitudinal incision directly over the A1 biju of the ring finger and within the oblique distal flexion crease of the middle finger. This was confirmed with palpation during finger flexion. This area, overlying the metacarpal head, was then anesthetized with 1% Lidocaine with epinephrine, buffered with sodium bicarbonate. The patient tolerated this well and once the anesthetic had setup, the procedure began. Starting with the ring finger, A longitudinal incision was made through skin only, approximately 1cm. The deep tissues were dissected bluntly. Once the A1 biju and flexor tendons were identified the soft tissue including neurovascular structures were retracted medially and laterally. There were no crossing structures over the A1 biju. The proximal edge of the biju was identified and the biju was incised with tenotomy scissors. There was a release of the tendons once this was fully released. The tendons were then removed from the wound and inspected. Excess synovium was resected. The tendons were then returned and the patient was asked to move the finger into deep flexion and back to extension. There was no recreation of the pre-operative symptoms. The hand was then once more inspected for any A0 biju or area of possible constriction. The wound was then irrigated and the skin was closed with a 4-0 Nylon. Attention was then turned to the middle finger where incision was made through skin only, approximately 1cm. The deep tissues were dissected bluntly. Once the A1 biju and flexor tendons were identified the soft tissue including neurovascular structures were retracted medially and laterally. There were no crossing structures over the A1 biju. The proximal edge of the biju was identified and the biju was incised with tenotomy scissors. There was a release of the tendons once this was fully released. The tendons were then removed from the wound and inspected. Excess synovium was resected. The tendons were then returned and the patient was asked to move the finger into deep flexion and back to extension. There was no recreation of the pre- operative symptoms. The hand was then once more inspected for any A0 biju or area of possible constriction. The wound was then irrigated and the skin was closed with a 4-0 Nylon. Both wounds were dressed with gauze and a Conform dressing. The patient tolerated the procedure well and was returned to the Same Day Surgery area in a stable condition suffering no known complication. Date of Procedure: 09/20/24
== END 2024-09-20 08:21 | disposition home or self-care (01) ==
PROVIDERS: PCP Family Medicine; Visit Provider Student in an Organized Health Care Education/Training Program
PROC: (CPT 26055; principal; 2024-09-20 07:30)
DX: M65.341 Trigger finger, right ring finger; M65.331 Trigger finger, right middle finger
CPT/HCPCS: 26055 ×2; J2004

== ENCOUNTER → 2024-09-29 10:02 | Outpatient (BNVA) | payer MEDICARE, SELFPAY | PROVIDERS: PCP Family Medicine; Referring Provider Family Medicine; Visit Provider Physician Assistant | DX: M65.331 Trigger finger, right middle finger (principal); M65.341 Trigger finger, right ring finger | CPT/HCPCS: 99024 ==

== ENCOUNTER → 2024-10-19 13:22 | Outpatient (BNVA) | payer MEDICARE, SELFPAY | PROVIDERS: PCP Family Medicine; Referring Provider Family Medicine | DX: Z47.89 Encounter for other orthopedic aftercare (principal); M25.641 Stiffness of right hand, not elsewhere classified | CPT/HCPCS: 99024 ==

== ENCOUNTER → 2024-10-26 10:08 | Outpatient (BNVA) | payer MEDICARE, SELFPAY | PROVIDERS: PCP Family Medicine; Referring Provider Family Medicine; Visit Provider Physician Assistant Surgical | DX: J45.909 Unspecified asthma, uncomplicated (principal); R05.3 Chronic cough | CPT/HCPCS: 99214 ==

== ENCOUNTER 2025-02-09 09:44 | Outpatient (CLI) | payer MEDICARE, SELFPAY ==
--- NOTE | 2025-02-09 09:45 | RT.EKG_ITS ---
APPROVED REPORT Exam: Resting ECG Reason for Exam: Follow up Patient Location: O HR:81 bpm ECG Measurements Heart Rate 81 AXIS TN 165 P 81 QRSd 78 QRS 58 QT 356 T 61 QTc 414 Conclusion Sinus rhythm...normal P axis, V-rate 50- 99 Normal Electrocardiogram
== END 2025-02-09 09:45 | disposition home or self-care (01) ==
LOC: DI.CARD 09:47
PROVIDERS: PCP Family Medicine; Visit Provider Internal Medicine Cardiovascular Disease
DX: I25.10 Atherosclerotic heart disease of native coronary artery without angina pectoris (principal); I10 Essential (primary) hypertension
CPT/HCPCS: 93010

== ENCOUNTER → 2025-02-09 09:44 | Outpatient (BNVA) | payer MEDICARE, SELFPAY | PROVIDERS: PCP Family Medicine; Referring Provider Family Medicine; Visit Provider Internal Medicine Cardiovascular Disease | DX: I25.10 Atherosclerotic heart disease of native coronary artery without angina pectoris (principal); G45.8 Other transient cerebral ischemic attacks and related syndromes; I10 Essential (primary) hypertension; Z79.02 Long term (current) use of antithrombotics/antiplatelets | CPT/HCPCS: 99214; 93005 ==

== ENCOUNTER 2025-03-29 09:44 | Outpatient (CLI) | payer MEDICARE, SELFPAY ==
[2025-03-29 14:26] LABS: HCT 39.4 % (36.0-46.0); HGB 13.4 g/dL (11.2-15.7); MCH 30.9 pg (27.0-33.0); MCHC 34.0 % (32.0-36.0); MCV 91 fL (80-95); MPV 9.7 fL (8.0-11.0); Platelet Count 296 10^3/uL (130-400); RBC 4.34 10^6/uL (3.93-5.22); RDW 13.0 % (11.7-14.6); RDW-SD 43.6 fL; WBC 3.82 10^3/uL (4.4-10.8)
[2025-03-29 15:06] LABS: ALT 42 U/L (14-59); AST 14 U/L (15-37); Albumin 4.0 g/dL (3.4-5.0); Alkaline Phosphatase 74 U/L (46-116); Anion Gap 9.6 mmol/L (3-11); BUN 13 mg/dL (7-18); Bilirubin, Total 0.7 mg/dL (0.2-1.0); CO2 27.4 mmol/L (21.0-32.0); Calcium 9.3 mg/dL (8.5-10.1); Chloride 102 mmol/L (98-107); Estimated GFR 90.70 (mL/min/1.73m2); Glucose 100 mg/dL (74-106); Potassium 4.1 mmol/L (3.5-5.1); Sodium 139 mmol/L (136-145); Total Protein 7.3 g/dL (6.4-8.2); Vitamin B12 618 pg/mL (193-986)
[2025-03-29 20:01] LABS: Hemoglobin A1C 5.9 % (<5.7)
== END 2025-03-29 09:45 | disposition home or self-care (01) ==
PROVIDERS: PCP Family Medicine; Referring Provider Family Medicine; Visit Provider Family Medicine
DX: E78.2 Mixed hyperlipidemia (principal); R19.7 Diarrhea, unspecified; E11.9 Type 2 diabetes mellitus without complications; I10 Essential (primary) hypertension; Z79.01 Long term (current) use of anticoagulants; E53.8 Deficiency of other specified B group vitamins
CPT/HCPCS: 36415; 80053; 82784; 83516; 85027; 82607; 83036

== ENCOUNTER 2025-04-09 02:38 | Outpatient (CLI) | payer MEDICARE, SELFPAY ==
--- NOTE | 2025-04-09 15:52 | DI.MAMMO_ITS ---
Exam(s) MAMMO SCREENING EXAM: MAMMO SCREENING CLINICAL HISTORY: Z12.39 SCREENING MAMMO TECHNIQUE: Bilateral full field digital CC and MLO mammographic images were obtained with 3D tomosynthesis and utilizing computer aided detection (CAD). COMPARISON: Comparison is made with prior examinations. FINDINGS: Masses/Architectural Distortion: No suspicious masses or areas of architectural distortion are present. Microcalcifications: No suspicious pleomorphic-type are seen. Skin Thickening/Nipple Retraction: None. IMPRESSION: 1. No significant interval change with no specific features of malignancy noted. 2. Unless there is more urgent need, screening mammography is recommended, as per [employer] guidelines. BI-RADS Category 1 - Negative Breast Density - Category C - The breast are heterogeneously dense, which may obscure small masses. Breast density Category C or D implies that the patient has dense breast tissue. Dense breast tissue can make it harder to find cancer on a mammogram. Dense breast tissue is also associated with an increased risk of breast cancer. This information about the result of the mammogram report was provided to the patient to raise their awareness. Use this report when you speak with the patient about their risks for breast cancer, which includes their family history. At that time, you may recommend additional screening tests (Ultrasound or MRI) as these tests may add significant information. A negative radiographic report should not delay biopsy if a dominant or clinically suspicious mass is present. Up to ten percent of cancers are not identified on mammography. A negative report may reinforce clinical impression. Adenosis and dense breasts may obscure an underlying neoplasm. False positive reports average 6 to 10%. Patient will receive a letter notifying them of these results.
== END 2025-04-09 02:58 ==
LOC: DI 02:38
PROVIDERS: PCP Family Medicine; Visit Provider Family Medicine
DX: Z12.31 Encounter for screening mammogram for malignant neoplasm of breast (principal); E78.2 Mixed hyperlipidemia
CPT/HCPCS: 77063; 77067

== ENCOUNTER 2025-04-20 05:11 | Outpatient (CLI) | payer MEDICARE, SELFPAY ==
--- NOTE | 2025-04-20 10:20 | DI.RAD_ITS ---
Exam(s) XR LUMBAR SPINE COMPLETE EXAM: XR LUMBAR SPINE COMPLETE CLINICAL HISTORY: lumbar radiculopathy,LOW BACK PAIN, M54.5. TECHNIQUE: 2D digital imaging was performed. Five views. COMPARISON: CR XR DEXA BONE DENSITY W/WO HEATHER from 02/27/2022 FINDINGS: BONES: No fracture or destructive lesion. Vertebral body heights are maintained. There are mild facet degenerative changes. DISKS: There is severe narrowing of the L1-2 and L2-3 disc spaces. There are endplate osteophytes at these levels. There is mild narrowing of the L3-4 disc space. The L4-5 and L5-S1 disc spaces are maintained. ALIGNMENT: Lumbar spinal alignment is within normal limits. SOFT TISSUE: Right upper and mid surgical clips. Aorta is heavily calcified. No evidence of aneurysm. IMPRESSION: Advanced degenerative disc changes at L1-2 and L2-3. DATA REPOSITORY: RADIATION DOSE DELIVERED:
== END 2025-04-20 05:31 ==
LOC: DI 05:11
PROVIDERS: PCP Family Medicine; Visit Provider Family Medicine
DX: M51.369 Other intervertebral disc degeneration, lumbar region without mention of lumbar back pain or lower extremity pain (principal)
CPT/HCPCS: 72110

== ENCOUNTER → 2025-04-25 14:37 | Outpatient (BNVA) | payer MEDICARE, SELFPAY | PROVIDERS: PCP Family Medicine; Referring Provider Family Medicine; Visit Provider Physician Assistant Surgical | DX: J45.909 Unspecified asthma, uncomplicated (principal); R05.3 Chronic cough; Z23 Encounter for immunization; Z87.891 Personal history of nicotine dependence | CPT/HCPCS: 90684; 99214 ==